=== PATIENT | female | born 1995 | race Caucasian/White ===

== ENCOUNTER → 2022-04-12 12:52 | Outpatient (BNVA) | payer MEDICAID, SELFPAY | PROVIDERS: PCP Family Medicine; Referring Provider Family Medicine; Visit Provider Internal Medicine | DX: E78.5 Hyperlipidemia, unspecified (principal); E03.9 Hypothyroidism, unspecified; R63.5 Abnormal weight gain; Z68.41 Body mass index [BMI] 40.0-44.9, adult; Z79.890 Hormone replacement therapy | CPT/HCPCS: 84439; 84443; 99204 ==

== ENCOUNTER 2022-04-16 09:45 | Outpatient (CLI) | payer MEDICAID, SELFPAY ==
[2022-04-16 12:35] LABS: Urine Creatinine 83 mg/dL (28-217)
[2022-04-16 13:13] LABS: Total Volume Urine 1800 ml
[2022-04-23 07:00] LABS: Free Cortisol Urine 34.2 mcg/24 h (4.0-50.0); Total Urine 1800 mL; Urine Creatinine 1.52 g/24 h (0.50-2.15)
== END 2022-04-16 09:46 | disposition home or self-care (01) ==
LOC: LAB 09:45
PROVIDERS: PCP Family Medicine; Visit Provider Internal Medicine
DX: E03.9 Hypothyroidism, unspecified (principal); E78.5 Hyperlipidemia, unspecified
CPT/HCPCS: 82530; 82570

== ENCOUNTER → 2022-05-16 09:38 | Outpatient (BNVA) | payer MEDICAID, SELFPAY | PROVIDERS: PCP Family Medicine; Visit Provider Internal Medicine | DX: E03.9 Hypothyroidism, unspecified (principal) | CPT/HCPCS: 36415; 84439; 84443; 84480; 86376; 86800 ==

== ENCOUNTER → 2022-05-16 09:38 | Outpatient (BNVA) | payer MEDICAID, SELFPAY | PROVIDERS: PCP Family Medicine; Visit Provider Internal Medicine | DX: E03.9 Hypothyroidism, unspecified (principal); R13.10 Dysphagia, unspecified; R63.5 Abnormal weight gain; Z79.890 Hormone replacement therapy; Z68.41 Body mass index [BMI] 40.0-44.9, adult | CPT/HCPCS: 99214 ==

== ENCOUNTER 2022-06-13 11:12 | Emergency (ER) | payer MEDICAID, SELFPAY ==
[2022-06-13 11:54] VITALS: BP 127/79; PULSE 94; RESP 16; TEMP 37; O2SAT 97; BMI 38.7
[2022-06-13 12:06] LABS: Basophils % 0.2 %; Eosinophils % 0.8 %; Hematocrit 34.2 % (37.0-47.0); Hemoglobin 10.9 g/dL (11.5-15.3); Lymphocytes % 40.8 %; Mean Corpuscular HGB Conc 31.9 g/dL (30.0-36.0); Mean Corpuscular Hemoglobin 28.6 pg (28.0-34.0); Mean Corpuscular Volume 89.8 fl (81-99); Monocytes # 0.3 10^3/uL (0.2-0.9); Monocytes % 6.2 %; Neutrophils # 2.56 10^3/uL (1.8-7.7); Neutrophils % 51.6 %; Nucleated Red Blood Cells % 0 %; Platelet Count 239 10^3/cmm (130-400); Red Blood Count 3.81 10^6/uL (4.1-5.3); Red Cell Distribution Width 11.8 % (12.1-15.1)
[2022-06-13 12:19] LABS: HCG, Serum Qual Negative (Negative)
[2022-06-13 12:22] LABS: Alanine Aminotransferase 138 U/L (0-33); Albumin Level 4.2 g/dL (3.5-5.2); Alkaline Phosphatase 76 U/L (35-105); Anion Gap 14.1 (5-19); Aspartate Amino Transferase 67 U/L (0-32); Blood Urea Nitrogen 12 mg/dL (6-20); Calcium 9.6 mg/dL (8.5-10.5); Carbon Dioxide 25 mmol/L (22-29); Chloride 103 mmol/L (98-107); Glomerular Filtration Rate 146.9 mL/min (90-130); Glucose 117 mg/dL (65-115); Lipase 38 U/L (13-60); Osmolality Calculated 287 mOsm/kg (285-295); Potassium 4.1 mmol/L (3.5-5.1); Sodium 138 mmol/L (136-145); Total Bilirubin 0.5 mg/dL (0.15-1.2); Total Protein 7.2 g/dL (6.6-8.7)
[2022-06-13 14:06] VITALS: BP 171/90; PULSE 78; RESP 17; O2SAT 98
--- NOTE | 2022-06-13 14:07 | CTR_ITS ---
PROCEDURE INFORMATION: Exam: CT Abdomen And Pelvis Without Contrast Exam date and time: 06/13/2022 2:52 PM Age: 26 years old Clinical indication: Abdominal pain; Localized; Patient HX: Central lower abd pain radiating to the left x 2 days; Additional info: Progressive rlq pain TECHNIQUE: Imaging protocol: Computed tomography of the abdomen and pelvis without contrast. Axial, coronal and sagittal reformatted images were created and reviewed. Radiation optimization: All CT scans at this facility use at least one of these dose optimization techniques: automated exposure control; mA and/or kV adjustment per patient size (includes targeted exams where dose is matched to clinical indication); or iterative reconstruction. REPORTING DATA: Count of CT and Cardiac NM exams in prior 12 months: This patient has received 0 known CTs and 0 known cardiac nuclear medicine studies in the 12 months prior to the current study. COMPARISON: No relevant prior studies available. RADIATION DOSE METRICS: Total DLP (mGy-cm): 1114.53 FINDINGS: Liver: Mild hepatomegaly. Diffuse hepatic steatosis. Gallbladder and bile ducts: Status post cholecystectomy. No biliary ductal dilatation. Pancreas: Unremarkable. Spleen: Unremarkable. Adrenal glands: Normal. No mass. Kidneys and ureters: Nonobstructing right renal calculus. No hydronephrosis. Stomach and bowel: No bowel wall thickening. No obstruction. No pneumatosis. Appendix: Normal. Intraperitoneal space: No free fluid. No organized fluid collection. No free air. Vasculature: Unremarkable. No aneurysm. Lymph nodes: No pathologically enlarged lymph nodes. Urinary bladder: Unremarkable as visualized. Reproductive: 3.9 x 3.2 cm right adnexal cystic lesion. Bones/joints: No acute osseous abnormality. Soft tissues: Small, fat containing infraumbilical hernia. CT/CT abdomen pelvis wo con [id number] IMPRESSION: 1. 3.9 x 3.2 cm right adnexal cystic lesion. If clinically indicated, pelvic ultrasound may be obtained for further evaluation. 2. Additional findings, as above.
--- NOTE | 2022-06-13 14:07 | W.ED.ABDPA2 ---
HPI - Abdominal Pain General: Chief Complaint: Abdominal Pain Stated Complaint: abd pains Time Seen by Provider: 06/13/22 13:34 Source: patient Mode of arrival: ambulatory Limitations: no limitations History of Present Illness: This lady comes to our emergency department because of concerns about abdominal pain. She states the abdominal pain began yesterday. She is notes that it seems to be more in the middle of her abdomen yesterday but is seem to have migrated to her right lower quadrant which it has remained since late last night. She states the pain is just present its not changed by eating or drinking although she did vomit this morning. She states this not changed by urinating or having a bowel movement both of which she is experienced today. She denies any blood in her urine or blood in her stools or black tarry stools. She has not had any recent travel, recent antibiotic use. She had a prior cholecystectomy as well as prior . She states that she had heavy period approximately 2 weeks ago and was seen in the emergency department in another facility and at that time evaluated given a prescription for a hormone which she thinks is Provera which she is still taking and discharged to outpatient gynecology follow-up. She denies any history of frequent urinary tract infections, pelvic infections or STDs, kidney stones etc. She is unaware of any fevers. MD elicited complaint: abdominal pain Migration to: RLQ Associated Symptoms: Reports vomiting; Denies chills, coffee ground emesis, dysuria, fever(s), hematochezia, hematemesis and melena Related Data: Patient : No Review of Systems Const: Denies: fever(s) or chills ENMT: Denies: throat pain, odynophagia, nasal discharge or nasal congestion Card: Denies: chest pain or palpitations Resp: Denies: dyspnea, productive cough or non-productive cough GI: Reports: abdominal pain and vomiting; Denies: hematemesis, coffee ground emesis, hematochezia or melena : Denies: flank pain, difficulty voiding, dysuria, urinary frequency, vaginal bleeding or vaginal discharge Musc: Denies: neck pain, extremity pain or extremity swelling Skin/Breast: Denies: rash Neuro: Denies: headache(s), numbness in extremities or weakness in extremities PFSH ED PFSH: Medical History Hypothyroidism Social History Smoking and tobacco status: former smoker Physical Exam Narrative: EXAM NARRATIVE: Patient appears to be in no acute distress and lying comfortably. She is able to answer questions in a goal-directed and fluent fashion. Const: COMMON NORMALS: no acute distress, patient oriented x3 and alert GENERAL APPEARANCE: cooperative NUTRITIONAL APPEARANCE: overweight ORIENTATION/CONSCIOUSNESS: Yes awake HENMT: COMMON NORMALS: normocephalic, Normal nasal mucous membranes and turbinates present and moist oral mucous membranes HEAD & SCALP: normocephalic NOSE: Normal nasal mucous membranes and turbinates present Eye: COMMON NORMALS: Equal, round and reactive pupils present, EOMs intact bilaterally and conjunctivae normal CONJUNCTIVA: Yes conjunctivae normal PUPIL: Yes Equal, round and reactive pupils present Neck/C-Spine: COMMON NORMALS: full ROM, no lymphadenopathy, supple and no JVD Chest: COMMONS NORMALS: normal inspection of the chest Resp: COMMON NORMALS: normal respiratory effort, No retractions and clear to auscultation bilaterally EFFORT & INSPECTION: Yes able to speak in complete sentences AUSCULTATION: clear to auscultation bilaterally Cardio: COMMON NORMALS: no JVD, regular rate, regular rhythm, No murmurs present (Cardio) and Peripheral pulses 2+ throughout RATE: regular rate RHYTHM: regular rhythm PERIPHERAL PULSES: Peripheral pulses 2+ throughout GI: COMMON NORMALS: Normal to inspection, nondistended, normoactive bowel sounds present, Soft to palpation and no masses PALPATION: Yes Soft to palpation and Yes Tenderness to palpation present (GI) (Tender to palpation, positive psoas sign with hip rotation.) Details: RLQ : COMMON NORMALS: Yes no CVA tenderness BLADDER/KIDNEY EXAM: Yes no CVA tenderness Back/Pelvis: COMMON NORMALS: no CVA tenderness, thoracic and lumbar spine normal to inspection, no thoracic nor lumbar tenderness, thoraco-lumbar ROM normal and straight leg raise negative bilaterally Extremity: COMMON NORMALS: normal to inspection, full ROM, capillary refill normal, no calf tenderness and no pedal edema Neuro: COMMON NORMALS: patient oriented x3, moves all extremities, no focal motor deficits and no sensory deficits noted SENSORIUM/ORIENTATION: Yes alert CRANIAL NERVES: Yes CN normal except as noted Psych: COMMON NORMALS: mental status grossly normal Skin: COMMON NORMALS: no rashes or lesions noted, no wounds and turgor normal GENERAL SKIN EXAM: no rashes or lesions noted and turgor normal Course Reevaluation(s): Reevaluation #1: Imaging reveals right adnexal cyst. We will proceed with ultrasound to better characterize the structure. No evidence of other concerning findings at this point. Time: 15:41 Reevaluation #2: Patient remains clinically stable with normal vital signs and controlled symptoms. I discussed current findings, expected course, follow-up and return precautions in detail with her. She voiced understanding. She is stable at this time to be discharged without any evidence of an ongoing emergency medical condition. Time: 17:55 Vital Signs: Vital signs: Vital Signs Temperature 98.6 F 06/13/22 11:54 Pulse Rate 70 06/13/22 17:50 Respiratory Rate 16 06/13/22 17:50 Blood Pressure 122/52 06/13/22 17:50 Pulse Oximetry 99 06/13/22 17:50 Oxygen Delivery Me thod Room Air 06/13/22 17:50 MDM - Abdominal Pain Medical Decision Making This patient presented to our emergency department because of abdominal pain that had migrated to predominantly the right lower quadrant over the prior 24 hours. Her clinical examination revealed some mild right lower quadrant tenderness without any peritoneal signs or events of a surgical abdomen however work-up ensued to ensure that there was no evidence of a occult appendicitis, X other pathology. Subsequently imaging and laboratories were obtained. No evidence of ectopic , urinary tract infection, ovarian torsion or bowel obstruction etc. however she did have a evidence of a stable right ovarian cyst without any evidence of significant free fluid or other concerns. Ancillary studies were reassuring as well. She was clinically stable. Consistent with a right ovarian cyst without evidence of rupture or ongoing bleeding or other emergency medical condition. She is already has a gynecology follow-up which is appropriate. She is stable at this time to be discharged with good return precautions. Medical Records I reviewed the patient's medical records. Lab Data I reviewed the patient's lab results. 06/13/22 11:46 06/13/22 11:46 Labs/Radiology: Radiology Impressions Abdomen/Pelvis CT 06/13/22 14:07 IMPRESSION: 1. 3.9 x 3.2 cm right adnexal cystic lesion. If clinically indicated, pelvic ultrasound may be obtained for further evaluation. 2. Additional findings, as above. Transvaginal US 06/13/22 15:40 IMPRESSION: Normal ovarian arterial and venous vascular flow. No evidence ovarian torsion. IMPRESSION: 3.9 x 2.3 x 4.3 cm complex right paraovarian cystic lesion with internal septations, suggestive of a hemorrhagic cyst. Laboratory Results WBC 5.0 10^3/uL (4.0-10.0) 06/13/22 11:46 RBC 3.81 10^6/uL (4.1-5.3) L 06/13/22 11:46 Hgb 10.9 g/dL (11.5-15.3) L 06/13/22 11:46 Hct 34.2 % (37.0-47.0) L 06/13/22 11:46 MCV 89.8 fl (81-99) 06/13/22 11:46 MCH 28.6 pg (28.0-34.0) 06/13/22 11:46 MCHC 31.9 g/dL (30.0-36.0) 06/13/22 11:46 RDW 11.8 % (12.1-15.1) L 06/13/22 11:46 Plt Count 239 10^3/cmm (130-400) 06/13/22 11:46 MPV 11.0 fL (7.4-10.4) H 06/13/22 11:46 Neut % (Auto) 51.6 % 06/13/22 11:46 Lymph % (Auto) 40.8 % 06/13/22 11:46 [place] % (Auto) 6.2 % 06/13/22 11:46 Eos % (Auto) 0.8 % 06/13/22 11:46 Baso % (Auto) 0.2 % 06/13/22 11:46 Neut # (Auto) 2.56 10^3/uL (1.8-7.7) 06/13/22 11:46 Lymph # (Auto) 2.0 10^3/uL (0.8-4.8) 06/13/22 11:46 [place] # (Auto) 0.3 10^3/uL (0.2-0.9) 06/13/22 11:46 Eos # (Auto) 0.0 10^3/uL (0.0-0.8) 06/13/22 11:46 Baso # (Auto) 0.0 10^3/uL (0.0-0.1) 06/13/22 11:46 Nucleated RBC % (auto) 0 % 06/13/22 11:46 Nucleated RBCs # 0.0 /100WBC 06/13/22 11:46 Sodium 138 mmol/L (136-145) 06/13/22 11:46 Potassium 4.1 mmol/L (3.5-5.1) 06/13/22 11:46 Chloride 103 mmol/L (98-107) 06/13/22 11:46 Carbon Dioxide 25 mmol/L (22-29) 06/13/22 11:46 Anion Gap 14.1 (5-19) 06/13/22 11:46 BUN 12 mg/dL (6-20) 06/13/22 11:46 Creatinine 0.5 mg/dL (0.5-0.9) 06/13/22 11:46 GFR Calculation 146.9 mL/min (90-130) H 06/13/22 11:46 Glucose 117 mg/dL (65-115) H 06/13/22 11:46 Calculated Osmolality 287 mOsm/kg (285-295) 06/13/22 11:46 Calcium 9.6 mg/dL (8.5-10.5) 06/13/22 11:46 Total Bilirubin 0.5 mg/dL (0.15-1.2) 06/13/22 11:46 AST 67 U/L (0-32) H 06/13/22 11:46 ALT 138 U/L (0-33) H 06/13/22 11:46 Alkaline Phosphatase 76 U/L (35-105) 06/13/22 11:46 Total Protein 7.2 g/dL (6.6-8.7) 06/13/22 11:46 Albumin 4.2 g/dL (3.5-5.2) 06/13/22 11:46 Globulin 3.0 g/dL (1.3-4.6) 06/13/22 11:46 Lipase 38 U/L (13-60) 06/13/22 11:46 HCG, Qual Negative (Negative) 06/13/22 11:46 Urine Color Yellow (Yellow) 06/13/22 13:51 Urine Appearance Hazy (CLEAR) A 06/13/22 13:51 Urine pH 6 (5-7) 06/13/22 13:51 Ur Specific [place] 1.025 (1.005-1.030) 06/13/22 13:51 Urine Protein Neg (Negative) 06/13/22 13:51 Urine Glucose (UA) Norm (Normal) 06/13/22 13:51 Urine Ketones Negative (Negative) 06/13/22 13:51 Urine Blood 2+ (Negative) H 06/13/22 13:51 Urine Nitrate Negative (Negative) 06/13/22 13:51 Urine Bilirubin Neg (Negative) 06/13/22 13:51 Urine Urobilinogen 1 mg/dL (Negative) H 06/13/22 13:51 Ur Leukocyte Esterase Negative (Negative) 06/13/22 13:51 Urine RBC None /hpf (0-2) 06/13/22 13:51 Urine WBC Rare /hpf (0-5) 06/13/22 13:51 Ur Squamous Epith Cells 15-25 /hpf (0-5) H 06/13/22 13:51 Amorphous Sediment 1+ /hpf 06/13/22 13:51 Urine Bacteria Trace /hpf (NONE) 06/13/22 13:51 Discharge Plan Discharge Patient Disposition: Home Clinical Impression: Cyst of right ovary Condition: Stable Prescriptions: No Action ferrous sulfate [FeroSul] 325 mg (65 mg iron) tablet 325 mg PO DAILY levetiracetam [Keppra] 500 mg tablet 500 mg PO BID levothyroxine 150 mcg tablet 150 mcg PO DAILY Qty: 90 0RF Discharge Orders: Discharge ED (Routine); Ordered 06/13/22 Ordered By: Amrit Souza Referrals: Ruddy Maldonado MD [Primary Care Provider] - Discharge Diet: Usual diet Discharge Activity: Increase activity as tolerated Patient Instructions: Opioid Safety, Pain Management Activity Restrictions/Additional Instructions: As we discussed during your evaluation in the emergency department there was no evidence that you had a surgical condition such as appendicitis, etc. at this time. We did discover that you have a cyst on your right ovary which is small and should resolve on its own. We have given you a medication in the emergency department should help any the pain and cramping associated with this cyst. You may use ibuprofen or Aleve in the [id number] recommended doses for the next 2 to 3 days to help with your ongoing symptoms. You have a scheduled follow-up appoint with gynecology in the next coming week which is an appropriate timeframe and you should follow-up as scheduled. If you develop increasing pain, lightheadedness, or any concerning symptoms return to this or the nearest emergency department. Coding Level of Care Code ED Signal Helper for Suri Schilling
[2022-06-13 14:21] LABS: Add Urine Microscopic? YES; Bilirubin Urine Neg (Negative); Blood Urine 2+ (Negative); Glucose Urine UA Norm (Normal); Ketones Urine Negative (Negative); Leukocyte Esterase Urine Negative (Negative); Nitrate Urine Negative (Negative); Protein Urine Neg (Negative); Specific Gravity, Urine 1.025 (1.005-1.030); Urine Appearance Hazy (CLEAR); Urine Color Yellow (Yellow); Urobilinogen Urine 1 mg/dL (Negative); pH Urine 6 (5-7)
[2022-06-13 14:22] LABS: Bacteria Urine TRACE /hpf; Squamous Epithelial Cell Urine 15-25 /hpf (0-5); WBC Urine RARE /hpf (0-5)
[2022-06-13 14:23] LABS: Add Urine Culture? No; Amorphous Sediment Urine 1+ /hpf
[2022-06-13] MEDS: morphine 4 mg/mL SDV 1 mL IVP (14:23)
--- NOTE | 2022-06-13 15:40 | USR_ITS ---
PROCEDURE INFORMATION: Exam: US Duplex Artery and Vein of the Abdominal and/or Reproductive Organs. Complete Ovaries Exam date and time: 06/13/2022 4:20 PM Age: 26 years old Clinical indication: Pelvic pain; Prior surgery; Surgery type: Patient has history of c section and tubal ligation; Additional info: Right adnexal cyst-neg preg TECHNIQUE: Imaging protocol: Real-time duplex ultrasound scan of the arterial and venous flow with color Doppler flow and spectral waveform analysis with image documentation. Complete duplex exam focused on the ovaries. Duplex exam was performed to evaluate for torsion and other vascular conditions. COMPARISON: CT abdomen pelvis con [id number] 06/13/2022 2:52 PM FINDINGS: Right ovary/adnexa: Normal duplex of the ovary. Normal Doppler waveforms and color flow. Arterial and venous flow are normal. No evidence of ovarian torsion. Left ovary/adnexa: Normal duplex of the ovary. Normal Doppler waveforms and color flow. Arterial and venous flow are normal. No evidence of ovarian torsion. PROCEDURE INFORMATION: Exam: US Pelvis, Transvaginal Exam date and time: 06/13/2022 4:20 PM Age: 26 years old Clinical indication: Pelvic pain; Prior surgery; Surgery type: Patient has history of c section and tubal ligation; Additional info: Right adnexal cyst-neg preg TECHNIQUE: Imaging protocol: Real-time transvaginal pelvic ultrasound with image documentation. Transvaginal imaging was used for better evaluation of the endometrium, adnexa, and/or cervix. COMPARISON: CT abdomen pelvis con [id number] 06/13/2022 2:52 PM FINDINGS: Uterus: 12.1 x 4.6 x 4.9 cm. Normal endometrial thickness, measuring approximally 13 mm. Right ovary/adnexa: 3.5 x 2.5 x 3 cm. 3.9 x 2.3 x 4.3 cm complex paraovarian cystic lesion with internal septations, suggestive of a hemorrhagic cyst. No solid mass. Normal ovarian blood flow. Left ovary/adnexa: 4.1 x 2.8 x 2.8 cm. No mass. Normal ovarian blood flow. Intraperitoneal space: Trace free pelvic fluid, likely physiologic. US/US transvaginal [id number] IMPRESSION: Normal ovarian arterial and venous vascular flow. No evidence ovarian torsion. IMPRESSION: 3.9 x 2.3 x 4.3 cm complex right paraovarian cystic lesion with internal septations, suggestive of a hemorrhagic cyst.
[2022-06-13 16:56] VITALS: BP 117/77; PULSE 81; RESP 18; O2SAT 97
[2022-06-13] MEDS: ketorolac 30 mg/mL INJ 15 MG IVP (17:46)
[2022-06-13 17:50] VITALS: BP 122/52; PULSE 70; RESP 16; O2SAT 99
[2022-06-13 18:05] VITALS: BP 122/52; PULSE 70; RESP 16; O2SAT 99
== END 2022-06-13 18:07 | disposition home or self-care (01) ==
PROVIDERS: Physician Assistant; Emergency Provider Emergency Medicine; PCP Family Medicine
DX: N83.201 Unspecified ovarian cyst, right side (principal); Z87.891 Personal history of nicotine dependence
CPT/HCPCS: 36415; 74176; 76830; 80053; 81001; 83690; 84703; 85025; 96374; 96375; 99285; J1885; J2270

== ENCOUNTER 2022-08-09 15:26 | Emergency (ER) | payer MEDICAID, SELFPAY ==
[2022-08-09 15:40] VITALS: PULSE 71; RESP 16; TEMP 36.9; O2SAT 97; BMI 39.9
--- NOTE | 2022-08-09 16:07 | W.ED.NEUROSD ---
HPI - Neuro Symptoms/Deficit General: Chief Complaint: Neuro Symptoms/Deficit Stated Complaint: Numbness in hands Time Seen by Provider: 08/09/22 15:56 History of Present Illness: Patient presents to the ER with complaints of numbness and tingling in her hands and lower arms over the last 4 days. Patient says this started about 4 days ago and has essentially made the whole area from the elbow all the way down to the fingertips on all sides feel numb tingly and having creepy crawly sensations. Patient is never had this before it is worse when patient is driving patient has never had any elbow trauma or arthritis noted. Patient has no other complaints at this time Review of Systems General: Reports: 10 or more systems reviewed and unremarkable except in HPI and below PFSH ED PFSH: Medical History Hypothyroidism Social History Smoking and tobacco status: former smoker Physical Exam Const: COMMON NORMALS: no acute distress, average body habitus, patient oriented x3, no limitations, healthy appearing, alert and well nourished HENMT: COMMON NORMALS: normocephalic, atraumatic, hearing grossly normal bilaterally, external ears normal, Normal external nose present and moist oral mucous membranes HEAD & SCALP: normocephalic and atraumatic NOSE: Normal external nose present EXTERNAL EAR: Yes external ears normal Neck/C-Spine: COMMON NORMALS: full ROM, no lymphadenopathy, supple, no meningeal signs, no JVD and Thyroid normal THYROID: Thyroid normal Chest: COMMONS NORMALS: normal inspection of the chest and normal palpation of entire chest wall Resp: COMMON NORMALS: normal respiratory effort, No retractions, No use of accessory muscles and clear to auscultation bilaterally AUSCULTATION: clear to auscultation bilaterally Cardio: COMMON NORMALS: no JVD, regular rate, regular rhythm, S1 normal heart sound present, S2 normal heart sound present, No gallops present (Cardio), No clicks present (Cardio), No murmurs present (Cardio) and No rub (Cardio) RATE: regular rate RHYTHM: regular rhythm HEART SOUNDS: S1 normal heart sound present and S2 normal heart sound present GI: COMMON NORMALS: Normal to inspection, nondistended, normoactive bowel sounds present, Soft to palpation, non-tender, No hepatosplenomegaly present and no masses PALPATION: Yes Soft to palpation and Yes No hepatosplenomegaly present Extremity: COMMON NORMALS: normal to inspection, full ROM, capillary refill normal, no joint enlargement and no clubbing, cyanosis or edema Neuro: COMMON NORMALS: patient oriented x3 SENSORIUM/ORIENTATION: Yes alert MENINGEAL SIGNS: Yes no meningeal signs Course Vital Signs: Vital signs: Vital Signs Temperature 98.4 F 08/09/22 15:40 Pulse Rate 71 08/09/22 15:40 Respiratory Rate 16 08/09/22 15:40 Pulse Oximetry 97 08/09/22 15:40 Oxygen Delivery Me thod Room Air 08/09/22 15:40 MDM - Neuro Symptoms/Deficit Medical Decision Making Patient presents to the ER with complaints of bilateral arm numbness tingling and feels like they are going to sleep. From the elbow all the way to the fingertips front back and side to side. This has not progressed in 4 days but it has not went away. This is unlikely any CVA type neurological event this is more likely a paresthesia type event. Patient will be trialed on oral prednisone and will be referred back to her primary care doctor for further evaluation testing which may include referral to a neurologist and/or nerve conduction study or EMG. Differential Diagnosis Likely peripheral neuropathy; Unlikely carpal tunnel syndrome, convulsions, delirium, subarachnoid hemorrhage, cerebrovascular accident, multiple sclerosis or transient cerebral ischemia Medical Records I reviewed the patient's medical records. Lab Data I reviewed the patient's lab results. Discharge Plan Discharge Patient Disposition: Home Clinical Impression: Distal paresthesia Condition: Stable Prescriptions: New prednisone 50 mg tablet 50 mg PO DAILY Qty: 7 0RF No Action ferrous sulfate [FeroSul] 325 mg (65 mg iron) tablet 325 mg PO DAILY levetiracetam [Keppra] 500 mg tablet 500 mg PO BID levothyroxine 150 mcg tablet 150 mcg PO DAILY Qty: 90 0RF Discharge Orders: Discharge ED (Routine); Ordered 08/09/22 Ordered By: Kalyan Taylor Referrals: Ruddy Maldonado MD [Primary Care Provider] - 1 week Patient Instructions: Paresthesia (ED) Activity Restrictions/Additional Instructions: Take your medicine as directed. Please follow-up with your family practice doctor in 1 week. He may benefit from further evaluation and treatment such as neurology and/or nerve conduction study. Coding Level of Care Code ED Protection Manager for Suri Schilling
== END 2022-08-09 16:33 | disposition home or self-care (01) ==
PROVIDERS: Emergency Provider Emergency Medicine; PCP Family Medicine
DX: R20.2 Paresthesia of skin (principal); Z87.891 Personal history of nicotine dependence
CPT/HCPCS: 99283

== ENCOUNTER 2023-01-04 19:36 | Emergency (ER) | payer MEDICAID, SELFPAY ==
[2023-01-04 19:41] VITALS: BP 122/81; PULSE 87; RESP 16; TEMP 36.9; O2SAT 97; BMI 39.9
[2023-01-04 20:03] VITALS: BP 165/89; PULSE 82; O2SAT 97
[2023-01-04 20:25] LABS: Basophils % 0.2 %; Eosinophils % 0.2 %; Lymphocytes # 2.5 10^3/uL (0.8-4.8); Lymphocytes % 27.2 %; Mean Corpuscular Hemoglobin 24.2 pg (27-33); Mean Corpuscular Volume 77.8 fl (85-98); Mean Platelet Volume 10.8 fL (7.4-10.4); Monocytes # 0.6 10^3/uL (0.2-0.9); Monocytes % 6.6 %; Neutrophils # 5.93 10^3/uL (1.8-7.7); Neutrophils % 65.5 %; Nucleated Red Blood Cells % 0 %; Platelet Count 268 10^3/cmm (157-399); Red Blood Count 5.01 10^6/uL (3.85-5.65); Red Cell Distribution Width 15.4 % (12.1-15.1); White Blood Count 9.06 10^3/uL (3.29-11.43)
[2023-01-04] MEDS: ondansetron 2 mg/ML SDV 2 mL 4 MG IVP (20:25)
[2023-01-04] MEDS: sodium chloride 0.9% 1,000 ML 999 ML IV (20:25)
[2023-01-04 20:34] LABS: Urine Appearance Hazy (CLEAR); Urine Color Yellow (Yellow); pH Urine 6 (5-7)
[2023-01-04 20:35] LABS: Add Urine Culture? No; Add Urine Microscopic? YES; Amorphous Sediment Urine 1+ /hpf; Bacteria Urine TRACE /hpf; Bilirubin Urine Neg (Negative); Blood Urine Neg (Negative); Glucose Urine UA Norm (Normal); Ketones Urine 1+ (Negative); Leukocyte Esterase Urine Trace (Negative); Nitrate Urine Negative (Negative); Protein Urine 1+ (Negative); RBC Urine RARE /hpf (0-2); Sperm Urine 1+ /hpf; Squamous Epithelial Cell Urine 15-25 /hpf (0-5); Urobilinogen Urine Neg (Negative); WBC Urine 0-4 /hpf (0-5)
[2023-01-04 20:36] LABS: HCG, Serum Qual Negative (Negative)
[2023-01-04 20:45] VITALS: BP 141/70; PULSE 85; O2SAT 95
[2023-01-04 20:45] LABS: Alanine Aminotransferase 74 U/L (0-33); Albumin Level 4.8 g/dL (3.5-5.2); Alkaline Phosphatase 98 U/L (35-105); Anion Gap 14.3 (5-19); Aspartate Amino Transferase 25 U/L (0-32); Blood Urea Nitrogen 12 mg/dL (6-20); C Reactive Protein 5.1 mg/L (0.0-4.9); Calcium 9.6 mg/dL (8.5-10.5); Carbon Dioxide 23 mmol/L (22-29); Chloride 105 mmol/L (98-107); Globulin 3.4 g/dL (1.3-4.6); Glomerular Filtration Rate 118.2 mL/min (90-130); Glucose 95 mg/dL (65-115); Lipase 28 U/L (13-60); Osmolality Calculated 286 mOsm/kg (285-295); Potassium 4.3 mmol/L (3.5-5.1); Sodium 138 mmol/L (136-145); Total Bilirubin 0.5 mg/dL (0.15-1.2); Total Protein 8.2 g/dL (6.6-8.7)
[2023-01-04] MEDS: lidocaine 2% viscous 15 ML, aluminum-mag hydrox-simethicon 30 ML, sucralfate oral liq 1 GM PO (20:51)
[2023-01-04] MEDS: ketorolac 30 mg/mL INJ IVP (20:56)
[2023-01-04 20:58] VITALS: BP 139/74; PULSE 76; O2SAT 98
--- NOTE | 2023-01-04 21:16 | ED_ITS ---
HPI - Abdominal Pain General: Chief Complaint: Abdominal Pain Stated Complaint: ABD Time Seen by Provider: 01/04/23 19:58 History of Present Illness: 27-year-old female presenting with epigastric and left upper quadrant pain, several episodes of vomiting, starting this afternoon. She denies fever. No diarrhea. She took an antiacid at home without any improvement. She states she has been belching a lot. She has a history of cholecystectomy. She has had her tubes tied, but notes that she has not had a period in 3 months or so. Associated Symptoms: Reports nausea and vomiting; Denies chills, constipation, diarrhea, fever(s) and hematochezia Review of Systems Const: Denies: fever(s) or chills Eyes: Denies: change in vision ENMT: Denies: throat pain Card: Denies: chest pain or palpitations Resp: Denies: dyspnea or productive cough GI: Reports: abdominal pain, nausea and vomiting; Denies: diarrhea, constipation or hematochezia : Denies: flank pain Neuro: Denies: headache(s) PFSH ED PFSH: Medical History Hypothyroidism Social History Smoking and tobacco/nicotine status: former use of tobacco/nicotine Physical Exam Const: COMMON NORMALS: no acute distress GENERAL APPEARANCE: cooperative; not ill appearing and not frail appearing HENMT: COMMON NORMALS: normocephalic, atraumatic and Normal external nose present HEAD & SCALP: normocephalic and atraumatic FACE & SINUS: normal facial exam and face symmetric NOSE: Normal external nose present Eye: COMMON NORMALS: Equal, round and reactive pupils present and EOMs intact bilaterally PUPIL: Yes Equal, round and reactive pupils present Neck/C-Spine: GENERAL: Yes trachea midline Chest: CHEST: Yes Symmetrical chest wall rise Resp: COMMON NORMALS: normal respiratory effort, No retractions, No use of accessory muscles and clear to auscultation bilaterally AUSCULTATION: clear to auscultation bilaterally Cardio: COMMON NORMALS: regular rate and regular rhythm RATE: regular rate RHYTHM: regular rhythm GI: COMMON NORMALS: Normal to inspection, nondistended, normoactive bowel sounds present PALPATION: Yes Tenderness to palpation present (GI) Details: LUQ and Yes Guarding due to palpation present (GI) Extremity: COMMON NORMALS: no pedal edema Neuro: JERE COMA SCALE: document GCS findings [place] coma scale eye opening: Spontaneous [place] coma scale verbal response: Orientated [place] coma scale motor response: Obey commands [place] coma scale total score: 15 SENSORY EXAM: Yes extremities (intact) Psych: COMMON NORMALS: speech normal SPEECH: Yes normal speech Skin: COMMON NORMALS: no rashes or lesions noted GENERAL SKIN EXAM: no rashes or lesions noted Course Vital Signs: Vital signs: Vital Signs Temperature 98.5 F 01/04/23 19:41 Pulse Rate 74 01/04/23 21:50 Respiratory Rate 18 01/04/23 21:50 Blood Pressure 135/67 01/04/23 21:50 Pulse Oximetry 96 01/04/23 21:50 Oxygen Delivery Me thod Room Air 01/04/23 20:58 MDM - Abdominal Pain Medical Decision Making Patient's symptoms are improved after a liter of fluid, GI cocktail, Toradol and Zofran. CBC is normal. BMP is normal. CRP is only 5. Lipase is normal at 28. Liver enzymes are not remarkable. Urinalysis is mildly contaminated, but shows no signs of UTI. With improvement in her symptoms, she will be allowed home. Return for worsening symptoms. Outpatient follow-up. Lab Data 01/04/23 20:17 01/04/23 20:17 Labs/Radiology: Laboratory Results WBC 9.06 10^3/uL (3.29-11.43) 01/04/23 20:17 RBC 5.01 10^6/uL (3.85-5.65) 01/04/23 20:17 Hgb 12.10 g/dL (11.27-16.99) 01/04/23 20:17 Hct 39.0 % (36-47) 01/04/23 20:17 MCV 77.8 fl (85-98) L 01/04/23 20:17 MCH 24.2 pg (27-33) L 01/04/23 20:17 MCHC 31.0 g/dL (30-55) 01/04/23 20:17 RDW 15.4 % (12.1-15.1) H 01/04/23 20:17 Plt Count 268 10^3/cmm (157-399) 01/04/23 20:17 MPV 10.8 fL (7.4-10.4) H 01/04/23 20:17 Neut % (Auto) 65.5 % 01/04/23 20:17 Lymph % (Auto) 27.2 % 01/04/23 20:17 [place] % (Auto) 6.6 % 01/04/23 20:17 Eos % (Auto) 0.2 % 01/04/23 20:17 Baso % (Auto) 0.2 % 01/04/23 20:17 Neut # (Auto) 5.93 10^3/uL (1.8-7.7) 01/04/23 20:17 Lymph # (Auto) 2.5 10^3/uL (0.8-4.8) 01/04/23 20:17 [place] # (Auto) 0.6 10^3/uL (0.2-0.9) 01/04/23 20:17 Eos # (Auto) 0.0 10^3/uL (0.0-0.8) 01/04/23 20:17 Baso # (Auto) 0.0 10^3/uL (0.0-0.1) 01/04/23 20:17 Nucleated RBC % (auto) 0 % 01/04/23 20:17 Nucleated RBCs # 0.0 /100WBC 01/04/23 20:17 Sodium 138 mmol/L (136-145) 01/04/23 20:17 Potassium 4.3 mmol/L (3.5-5.1) 01/04/23 20:17 Chloride 105 mmol/L (98-107) 01/04/23 20:17 Carbon Dioxide 23 mmol/L (22-29) 01/04/23 20:17 Anion Gap 14.3 (5-19) 01/04/23 20:17 BUN 12 mg/dL (6-20) 01/04/23 20:17 Creatinine 0.6 mg/dL (0.5-0.9) 01/04/23 20:17 GFR Calculation 118.2 mL/min (90-130) 01/04/23 20:17 Glucose 95 mg/dL (65-115) 01/04/23 20:17 Calculated Osmolality 286 mOsm/kg (285-295) 01/04/23 20:17 Calcium 9.6 mg/dL (8.5-10.5) 01/04/23 20:17 Total Bilirubin 0.5 mg/dL (0.15-1.2) 01/04/23 20:17 AST 25 U/L (0-32) 01/04/23 20:17 ALT 74 U/L (0-33) H 01/04/23 20:17 Alkaline Phosphatase 98 U/L (35-105) 01/04/23 20:17 C-Reactive Protein 5.1 mg/L (0.0-4.9) H 01/04/23 20:17 Total Protein 8.2 g/dL (6.6-8.7) 01/04/23 20: Albumin 4.8 g/dL (3.5-5.2) 01/04/23 20: Globulin 3.4 g/dL (1.3-4.6) 01/04/23 20:17 Lipase 28 U/L (13-60) 01/04/23 20:17 HCG, Qual Negative (Negative) 01/04/23 20:17 Urine Color Yellow (Yellow) 01/04/23 20:11 Urine Appearance Hazy (CLEAR) A 01/04/23 20:11 Urine pH 6 (5-7) 01/04/23 20:11 Ur Specific [place] 1.020 (1.005-1.030) 01/04/23 20:11 Urine Protein 1+ (Negative) H 01/04/23 20:11 Urine Glucose (UA) Norm (Normal) 01/04/23 20:11 Urine Ketones 1+ (Negative) H 01/04/23 20:11 Urine Blood Neg (Negative) 01/04/23 20:11 Urine Nitrate Negative (Negative) 01/04/23 20:11 Urine Bilirubin Neg (Negative) 01/04/23 20:11 Urine Urobilinogen Neg mg/dL (Negative) 01/04/23 20:11 Ur Leukocyte Esterase Trace (Negative) H 01/04/23 20:11 Urine RBC Rare /hpf (0-2) 01/04/23 20:11 Urine WBC 0-4 /hpf (0-5) H 01/04/23 20:11 Ur Squamous Epith Cells 15-25 /hpf (0-5) H 01/04/23 20:11 Amorphous Sediment 1+ /hpf 01/04/23 20:11 Urine Bacteria Trace /hpf (NONE) 01/04/23 20:11 Urine Sperm 1+ /hpf 01/04/23 20:11 No radiology studies performed this visit Discharge Plan Discharge Patient Disposition: Home Clinical Impression: Gastritis Condition: Stable Prescriptions: New ondansetron 4 mg film 4 mg PO DAILY PRN (Reason: nausea and vomiting) Qty: 14 0RF Protonix 40 mg tablet,delayed release (DR/EC) 40 mg PO DAILY 28 Days Qty: 30 0RF No Action ferrous sulfate [FeroSul] 325 mg (65 mg iron) tablet 325 mg PO DAILY levetiracetam [Keppra] 500 mg tablet 500 mg PO BID levothyroxine 150 mcg tablet 150 mcg PO DAILY Qty: 90 0RF prednisone 50 mg tablet 50 mg PO DAILY Qty: 7 0RF Discharge Orders: Discharge ED (Routine); Ordered 01/04/23 Ordered By: Ralf Cordova Referrals: Ruddy Maldonado MD [Primary Care Provider] - 4-7 days Patient Instructions: Gastritis (ED), Opioid Safety, Pain Management Activity Restrictions/Additional Instructions: Monitor for fever. Return for vomiting liquids or medications despite treatment, worsening pain despite treatment, blood in stool, other concerning symptoms. He should be on a liquid diet for 24 hours, then increase food as tolerated. Take nausea medication scheduled for the first 24 hours, then as needed following. Follow-up with your doctor. Stand Alone Forms: Work/School Release Coding Level of Care Code ED Educational Fundraising Director for Suri Schilling
[2023-01-04 21:50] VITALS: BP 135/67; PULSE 74; RESP 18; O2SAT 96
== END 2023-01-04 21:51 | disposition home or self-care (01) ==
PROVIDERS: Emergency Provider Emergency Medicine; PCP Family Medicine
DX: K29.70 Gastritis, unspecified, without bleeding (principal); Z87.891 Personal history of nicotine dependence
CPT/HCPCS: 36415; 80053; 81001; 83690; 84703; 85025; 86140; 96361; 96374; 96375; 99284; J1885; J2405; J7030

== ENCOUNTER 2024-01-03 11:46 | Emergency (ER) | payer BC, SELFPAY ==
[2024-01-03 12:10] VITALS: BP 116/69; PULSE 83; RESP 17; TEMP 36.7; O2SAT 100; BMI 40.2
[2024-01-03 12:16] LABS: Basophils % 0.3 %; Eosinophils # 0.1 10^3/uL (0.0-0.8); Eosinophils % 1.7 %; Hematocrit 34.4 % (36-47); Lymphocytes # 3.1 10^3/uL (0.8-4.8); Lymphocytes % 42.7 %; Mean Corpuscular HGB Conc 27.9 g/dL (30-55); Mean Corpuscular Hemoglobin 19.6 pg (27-33); Mean Corpuscular Volume 70.1 fl (85-98); Mean Platelet Volume 10.9 fL (7.4-10.4); Monocytes # 0.5 10^3/uL (0.2-0.9); Monocytes % 6.3 %; Neutrophils # 3.45 10^3/uL (1.8-7.7); Neutrophils % 48.3 %; Nucleated Red Blood Cells % 0 %; Platelet Count 310 10^3/cmm (157-399); Red Blood Count 4.91 10^6/uL (3.85-5.65); Red Cell Distribution Width 18.5 % (12.1-15.1); White Blood Count 7.14 10^3/uL (3.29-11.43)
--- NOTE | 2024-01-03 12:19 | ECG_ITS ---
[facility] Test Date: 2024-01-03 Pat Name: Briana Gonzalez Department: Room: Gender: Female Indian Trader: : 1995 Requested By: Arminda Interiano Order Number: [id number] Isela MD: Evelyn Carrasco M.D. Measurements Intervals [place] Rate: 77 P: 44 WV: 148 QRS: 40 QRSD: 96 T: 62 QT: 376 QTc: 428 Interpretive Statements SINUS RHYTHM WITH SINUS ARRHYTHMIA No previous ECG available for comparison Electronically Signed On 01-04-2024 15:59:46 TRAFFIC OPERATIONS ENGINEER by Evelyn Carrasco M.D. [email or web address]
[2024-01-03 12:24] LABS: HCG, Serum Qual Negative (Negative)
[2024-01-03 12:45] LABS: Alanine Aminotransferase 56 U/L (0-33); Albumin Level 4.2 g/dL (3.5-5.2); Alkaline Phosphatase 113 U/L (35-105); Anion Gap 12.2 (5-19); Aspartate Amino Transferase 36 U/L (0-32); Blood Urea Nitrogen 10 mg/dL (6-20); Carbon Dioxide 27 mmol/L (22-29); Chloride 104 mmol/L (98-107); Creatinine Clr Calc Pharmacy 180.9164; Globulin 3.4 g/dL (1.3-4.6); Glomerular Filtration Rate 117.4 mL/min (90-130); Glucose 104 mg/dL (65-115); Osmolality Calculated 287 mOsm/kg (285-295); Potassium 4.2 mmol/L (3.5-5.1); Sodium 139 mmol/L (136-145); Thyroid Stimulating Hormone 2.68 uIU/mL (0.27-4.20); Total Bilirubin 0.5 mg/dL (0.15-1.2); Total Protein 7.6 g/dL (6.6-8.7)
--- NOTE | 2024-01-03 13:35 | ED_ITS ---
HPI - General Adult 2 General: Chief complaint: Dizziness Stated complaint: keeps having blackouts Time Seen by Provider: 01/03/24 13:12 Source: patient and family Mode of arrival: wheelchair Limitations: no limitations History of Present Illness: Patient is a 28-year-old female with a PMH significant for obesity, hypothyroidism, iron deficiency anemia, nonalcoholic fatty liver, and seizures here for concerns of recurrent changes in level of consciousness. She was reportedly sent by her primary care provider to be admitted. She states over the past 1.5 weeks she has been seen in the [facility] as well as [place] but they would not admit her to the hospital so she came here to be admitted. She states her primary care provider is concerned about possible absence seizures but does also mention pseudoseizures and is also stated she thinks it might be my thyroid (per patient). Patient states she did have a history of seizures and was on Keppra for this medication. Also states at some point she has been on Dilantin. She states she was taken off of this (Keppra) approximately a year ago as she had not had a seizure in quite some time. Significant other states she had been doing well until approximately 1.5 weeks ago. She states her previous seizures included tonic-clonic activity. Significant other states lately she has been having episodes where her eyes rolls back in her head and she seemingly goes out of consciousness for a few minutes before coming to. PCP has witnessed these and states vitals remain stable during these episodes. She does have a postictal period of headache and some confusion. She reportedly is normal in between these episodes. Patient states during her 2 previous workups over the past 1.5 weeks she has had an MRI (records obtained and it was a CT scan-normal). She does not have any episodes of incontinence, tongue biting, apnea. Onset (ago): day(s) (8-10 days ago) Relieving factors: none Exacerbating factors: none Associated symptoms: Reports headache(s); Deny chest pain, dyspnea, malaise, nausea, rash, palpitations, syncope or vomiting Treatments prior to arrival: none Related Data Home Medications Medication Instructions Recorded Confirmed levothyroxine 175 mcg tablet 175 mcg PO QAM 01/03/24 01/03/24 Previous Rx's Medication Instructions Recorded nitrofurantoin 100 mg PO BID 7 days #14 caps 01/03/24 monohydrate/macrocrystals 100 mg capsule (Macrobid) phenytoin sodium extended 100 mg 100 mg PO TID #90 caps 01/03/24 capsule Allergies Allergy/AdvReac Type Severity Reaction Status Date / Time Iodinated Contrast Media Allergy Intermediate ALGY-Hives Verified 01/03/24 12:16 shellfish derived Allergy Unknown Unknown Verified 01/03/24 12:16 Review of Systems 2 Const: Denies: fever(s), chills, body aches, fatigue or malaise Eyes: Denies: change in vision, blurry vision, photophobia, floaters or seeing flashes ENMT: Denies: throat pain, odynophagia, ear or mastoid pain, nasal discharge, nasal congestion or sinus pain Card: Denies: chest pain, palpitations, irregular heart rhythm, lightheadedness, syncope or dyspnea on exertion Resp: Denies: dyspnea, productive cough or pain on inspiration GI: Denies: abdominal pain, nausea, vomiting, heartburn or diarrhea : Denies: dysuria Musc: Denies: neck pain, back pain or joint pain Skin/Breast: Denies: rash Neuro: Reports: headache(s); Denies: numbness in extremities, weakness in extremities, sensory changes, difficulty walking, frequent falls, dizziness or Slurred speech present PFSH ED 2 PFSH: Medical History Hypothyroidism Social History Smoking and tobacco/nicotine status: former use of tobacco/nicotine Physical Exam 2 Const: COMMON NORMALS: no acute distress, patient oriented x3, alert and well nourished GENERAL APPEARANCE: cooperative NUTRITIONAL APPEARANCE: obese ORIENTATION/CONSCIOUSNESS: Yes awake, Yes oriented to person, Yes oriented to place and Yes oriented to time HENMT: COMMON NORMALS: normocephalic and atraumatic HEAD & SCALP: normal to inspection, normocephalic and atraumatic FACE & SINUS: normal facial exam and face symmetric Eye: COMMON NORMALS: Equal, round and reactive pupils present and EOMs intact bilaterally GENERAL EYE: appearance normal, both eyes and all related structures and normal light reflex PUPIL: Yes Equal, round and reactive pupils present DIRECT OPHTHALMOSCOPY: Yes normal light reflex Neck/C-Spine: COMMON NORMALS: full ROM, no lymphadenopathy, supple and no meningeal signs Chest: COMMONS NORMALS: normal inspection of the chest Resp: COMMON NORMALS: normal respiratory effort and clear to auscultation bilaterally AUSCULTATION: clear to auscultation bilaterally Cardio: COMMON NORMALS: regular rate and regular rhythm RATE: regular rate RHYTHM: regular rhythm GI: COMMON NORMALS: Normal to inspection, nondistended, normoactive bowel sounds present, Soft to palpation, non-tender, No hepatosplenomegaly present and no masses PALPATION: Yes Soft to palpation and Yes No hepatosplenomegaly present : COMMON NORMALS: Yes no CVA tenderness BLADDER/KIDNEY EXAM: Yes no CVA tenderness Back/Pelvis: COMMON NORMALS: no CVA tenderness and thoracic and lumbar spine normal to inspection Extremity: COMMON NORMALS: normal to inspection GENERAL: Yes normal exam except as noted Neuro: CORIN COMA SCALE: document GCS findings [place] coma scale eye opening: Spontaneous [place] coma scale verbal response: Orientated [place] coma scale motor response: Obey commands [place] coma scale total score: 15 COMMON NORMALS: patient oriented x3, CN's II-XII intact bilaterally, moves all extremities, no focal motor deficits and no sensory deficits noted S ENSORIUM/ORIENTATION: Yes alert, Yes oriented to person, Yes oriented to place and Yes oriented to time MENINGEAL SIGNS: Yes no meningeal signs Skin: COMMON NORMALS: no rashes or lesions noted GENERAL SKIN EXAM: no rashes or lesions noted Course 2 Vital Signs: Vital signs: Vital Signs Temperature 98.1 F 01/03/24 12:10 Pulse Rate 58 L 01/03/24 15:08 Respiratory Rate 16 01/03/24 14:35 Blood Pressure 119/66 01/03/24 15:08 Pulse Oximetry 97 01/03/24 15:08 Oxygen Delivery Me thod Room Air 01/03/24 15:08 MDM - General Adult Medical Decision Making Patient has not had any episodes while here. Records from [facility] and [place] were obtained. These workups were essentially unremarkable. At [facility] she did have an elevated TSH. This is normal today. Head CT was normal. She was ambulatory here without difficulty or assistance. Interestingly enough, both [facility] and [place] ED records to report multiple ED visits. One of the visits did have a positive UA culture for E. coli resulting a few days ago. She has not been started on antibiotics for this. I think DDx at this time includes functional seizures versus focal epilepsy. Will give loading dose of Dilantin prior to discharge. She will be started on Dilantin as well as antibiotics for UTI. Return to ED precautions given. Did discuss case with her primary care provider. Referral for neurology will be placed. Medical Records I reviewed the patient's medical records. Lab Data I reviewed the patient's lab results. 01/03/24 12:03 01/03/24 12:03 Radiology Impressions Chest X-Ray 01/03/24 13:51 Impression: Negative chest. Laboratory Results WBC 7.14 10^3/uL (3.29-11.43) 01/03/24 12:03 RBC 4.91 10^6/uL (3.85-5.65) 01/03/24 12:03 Hgb 9.60 g/dL (11.27-16.99) L 01/03/24 12:03 Hct 34.4 % (36-47) L 01/03/24 12:03 MCV 70.1 fl (85-98) L 01/03/24 12:03 MCH 19.6 pg (27-33) L 01/03/24 12:03 MCHC 27.9 g/dL (30-55) L 01/03/24 12:03 RDW 18.5 % (12.1-15.1) H 01/03/24 12:03 Plt Count 310 10^3/cmm (157-399) 01/03/24 12:03 MPV 10.9 fL (7.4-10.4) H 01/03/24 12:03 Neut % (Auto) 48.3 % 01/03/24 12:03 Lymph % (Auto) 42.7 % 01/03/24 12:03 [place] % (Auto) 6.3 % 01/03/24 12:03 Eos % (Auto) 1.7 % 01/03/24 12:03 Baso % (Auto) 0.3 % 01/03/24 12:03 Neut # (Auto) 3.45 10^3/uL (1.8-7.7) 01/03/24 12:03 Lymph # (Auto) 3.1 10^3/uL (0.8-4.8) 01/03/24 12:03 [place] # (Auto) 0.5 10^3/uL (0.2-0.9) 01/03/24 12:03 Eos # (Auto) 0.1 10^3/uL (0.0-0.8) 01/03/24 12:03 Baso # (Auto) 0.0 10^3/uL (0.0-0.1) 01/03/24 12:03 Nucleated RBC % (auto) 0 % 01/03/24 12:03 Nucleated RBCs # 0.0 /100WBC 01/03/24 12:03 Sodium 139 mmol/L (136-145) 01/03/24 12:03 Potassium 4.2 mmol/L (3.5-5.1) 01/03/24 12:03 Chloride 104 mmol/L (98-107) 01/03/24 12:03 Carbon Dioxide 27 mmol/L (22-29) 01/03/24 12:03 Anion Gap 12.2 (5-19) 01/03/24 12:03 BUN 10 mg/dL (6-20) 01/03/24 12:03 Creatinine 0.6 mg/dL (0.5-0.9) 01/03/24 12:03 GFR Calculation 117.4 mL/min (90-130) 01/03/24 12:03 Glucose 104 mg/dL (65-115) 01/03/24 12:03 Calculated Osmolality 287 mOsm/kg (285-295) 01/03/24 12:03 Calcium 9.0 mg/dL (8.5-10.5) 01/03/24 12:03 Total Bilirubin 0.5 mg/dL (0.15-1.2) 01/03/24 12:03 AST 36 U/L (0-32) H 01/03/24 12:03 ALT 56 U/L (0-33) H 01/03/24 12:03 Alkaline Phosphatase 113 U/L (35-105) H 01/03/24 12:03 Total Protein 7.6 g/dL (6.6-8.7) 01/03/24 12:03 Albumin 4.2 g/dL (3.5-5.2) 01/03/24 12:03 Globulin 3.4 g/dL (1.3-4.6) 01/03/24 12:03 TSH 2.68 uIU/mL (0.27-4.20) 01/03/24 12:03 HCG, Qual Negative (Negative) 01/03/24 12:03 Amorphous Sediment Not Reportable 01/03/24 14:48 No radiology studies performed this visit Discharge Plan Discharge Patient Disposition: Home Clinical Impression: Seizure-like activity Acute cystitis Qualifiers: Hematuria presence: without hematuria Qualified Code(s): N30.00 - Acute cystitis without hematuria Condition: Stable Prescriptions: New phenytoin sodium extended 100 mg capsule 100 mg PO TID Qty: 90 0RF nitrofurantoin monohyd/m-cryst [Macrobid] 100 mg capsule 100 mg PO BID 7 Days Qty: 14 0RF Rx Instructions: must administer with a meal/food No Action levothyroxine 175 mcg tablet 175 mcg PO QAM Discharge Orders: Discharge ED (Routine); Ordered 01/03/24 Ordered By: Merna Mcknight Referrals: Ruddy Maldonado MD [Primary Care Provider] - Activity Restrictions/Additional Instructions: No driving until cleared by neurology. I have placed a case management referral to get you set up with [facility] neurology office. You have been given his loading dose of Dilantin prior to discharge. Will place you on oral Dilantin at home. Also you placing you on antibiotics as she did have a urine culture positive for E. coli. You need to follow-up with primary care next week. Coding Level of Care Code ED Associate Faculty for Suri Schilling
--- NOTE | 2024-01-03 13:51 | XR_ITS ---
WS: [id number] Portable AP upright chest, 01/03/2024 Clinical Data: weakness Comparison: None. Findings: No nodules, masses or effusions are seen. The heart is normal. The pulmonary vascularity is not increased. No pneumonia or pneumothorax is seen. XR/XR chest 1V portable [id number] Impression: Negative chest.
[2024-01-03] MEDS: sodium chloride 0.9% 1,000 ML 999 ML IV (14:32)
[2024-01-03 14:35] VITALS: BP 113/64; PULSE 69; RESP 16; O2SAT 99
[2024-01-03 15:08] VITALS: BP 119/66; PULSE 58; O2SAT 97
[2024-01-03 15:19] LABS: Bilirubin Urine Negative (Negative); Blood Urine Negative (Negative); Glucose Urine UA Negative (Normal); Ketones Urine Negative (Negative); Leukocyte Esterase Urine Trace (Negative); Nitrate Urine Negative (Negative); Protein Urine Negative (Negative); Specific Gravity, Urine 1.019 (1.005-1.030); Urine Appearance Cloudy (CLEAR); Urine Color Yellow (Yellow); pH Urine 6.5 (5-7)
[2024-01-03 15:24] LABS: Add Urine Microscopic? YES; Bacteria Urine 4+ /hpf; WBC Urine 21-50 /hpf (0-5)
[2024-01-03] MEDS: phenytoin 1,000 MG in sodium chloride 0.9% (100 ml) 100 ML, non-DEHP filter tubing onc ... 270 MG IV (15:25)
[2024-01-03 15:26] LABS: Amphetamines Screen Urine Negative (Negative); Barbiturates Screen Urine Negative (Negative); Benzodiazepines Screen Urine Negative (Negative); Cocaine Screen Urine Negative (Negative); Opiate Screen Urine Negative (Negative); PCP Screen Urine Negative (Negative); THC Screen Urine Positive (Negative)
[2024-01-03 15:30] VITALS: BP 105/53; PULSE 65; RESP 16; O2SAT 99
[2024-01-03 15:36] LABS: UA Slide Review UA Slide Review Perf
[2024-01-03 15:37] LABS: Add Urine Culture? Yes
[2024-01-03 16:18] VITALS: BP 112/67; PULSE 75; RESP 16; O2SAT 97
--- NOTE | 2024-01-06 07:25 | DCPLANNER ---
message sent toe neuro for er f/u
== END 2024-01-03 16:22 | disposition home or self-care (01) ==
PROVIDERS: Emergency Medicine; Emergency Provider Physician Assistant; PCP Family Medicine
DX: R56.9 Unspecified convulsions (principal); N30.00 Acute cystitis without hematuria; Z87.891 Personal history of nicotine dependence
CPT/HCPCS: 36415; 71045; 80053; 80306; 81001; 84443; 84703; 85025; 87077; 87086; 87186; 93005; 96365; 99285; J1165; J7030

== ENCOUNTER 2024-07-24 10:25 | Emergency (ER) | payer BC, SELFPAY ==
[2024-07-24] VITALS (21 sets, daily range): BP systolic 104–165; BP diastolic 62–100; PULSE 67–92; RESP 16; TEMP 36.7; O2SAT 92–98; BMI 41.5
--- NOTE | 2024-07-24 11:28 | CT_ITS ---
WS: [id number] CT HEAD TECHNIQUE: Noncontrast CT of the head obtained from the skullbase to the vertex. CLINICAL INFORMATION: seizure COMPARISON: 2023 DLP: 2323.[address] scans at [facility] use at least one of these dose optimization techniques: automated exposure control; mA and/or kV adjustment per patient size (includes targeted exams where dose is matched to clinical indication); or iterative reconstruction. FINDINGS: No evidence of intracranial hemorrhage or mass effect. Ventricular system and basal cisterns are patent. No extra-axial fluid collections. No evidence of mass or mass effect. Normal ha-white differentiation. Polyploid mucosal thickening in the paranasal sinuses. Mild mucosal thickening in the ethmoid air cells. Mastoid air cells are well aerated. CT/CT head wo con* [id number] IMPRESSION: 1. No evidence of intracranial hemorrhage or mass effect. 2. No acute intracranial findings.
[2024-07-24 12:10] LABS: Basophils % 0.5 %; Eosinophils # 0.1 10^3/uL (0.0-0.8); Eosinophils % 1.4 %; Hematocrit 35.5 % (36-47); Lymphocytes # 2.7 10^3/uL (0.8-4.8); Lymphocytes % 41.9 %; Mean Corpuscular HGB Conc 30.4 g/dL (30-55); Mean Corpuscular Hemoglobin 23.5 pg (27-33); Mean Corpuscular Volume 77.3 fl (85-98); Mean Platelet Volume 10.7 fL (7.4-10.4); Monocytes # 0.6 10^3/uL (0.2-0.9); Monocytes % 9.1 %; Neutrophils # 2.96 10^3/uL (1.8-7.7); Neutrophils % 46.5 %; Nucleated Red Blood Cells % 0 %; Platelet Count 222 10^3/cmm (157-399); Red Blood Count 4.59 10^6/uL (3.85-5.65); Red Cell Distribution Width 18.1 % (12.1-15.1); White Blood Count 6.37 10^3/uL (3.29-11.43)
[2024-07-24 12:30] LABS: Alanine Aminotransferase 87 U/L (0-33); Albumin Level 4.2 g/dL (3.5-5.2); Alkaline Phosphatase 107 U/L (35-105); Anion Gap 12.3 (5-19); Aspartate Amino Transferase 38 U/L (0-32); Blood Urea Nitrogen 13 mg/dL (6-20); Calcium 9.6 mg/dL (8.5-10.5); Carbon Dioxide 28 mmol/L (22-29); Chloride 104 mmol/L (98-107); Creatine Phosphokinase 56 U/L (26-192); Creatinine Clr Calc Pharmacy 184.0582; Globulin 2.9 g/dL (1.3-4.6); Glomerular Filtration Rate 117.4 mL/min (90-130); Glucose 99 mg/dL (65-115); Osmolality Calculated 290 mOsm/kg (285-295); Potassium 4.3 mmol/L (3.5-5.1); Sodium 140 mmol/L (136-145); Total Bilirubin 0.3 mg/dL (0.15-1.2); Total Protein 7.1 g/dL (6.6-8.7)
--- NOTE | 2024-07-24 12:41 | PC.NURSE ---
CT CALLED THE ED AND NOTIFIED STAFF THAT PT WAS HAVING A SEIZURE IN CT. THIS NURSE NOTIFIED PROVIDER AND ASKED IF THERE WERE ANY NEW ORDERS. PROVIDER INFORMED THIS NURSE THAT THE PT SEIZURES LAST APPROXIMATELY 3-30 SECONDS AND SO BY THE TIME THERE WERE NEW ORDERS, PT SHOULD BE DONE WITH THE SEIZURE. PROVIDER STATED THAT IF PT WAS STILL HAVING A SEIZURE, 1MG OF ATIVAN COULD BE ADMINISTERED. THIS NURSE WENT OVER TO CT AND ASSESSED PT WITH PRIMARY NURSE. PT WAS DONE WITH THE SEIZURE AT THAT TIME. NO MEDICATION ORDERED OR ADMINISTERED AT THIS TIME.
[2024-07-24 13:17] LABS: HCG Qualitative Urine. Negative (Negative)
[2024-07-24 13:21] LABS: Bilirubin Urine Negative (Negative); Blood Urine Negative (Negative); Glucose Urine UA Negative (Normal); Ketones Urine Negative (Negative); Leukocyte Esterase Urine Negative (Negative); Nitrate Urine Negative (Negative); Protein Urine Negative (Negative); Specific Gravity, Urine 1.008 (1.005-1.030); Urine Appearance Clear (CLEAR); Urine Color Yellow (Yellow); pH Urine 7.5 (5-7)
[2024-07-24 13:23] LABS: Add Urine Microscopic? YES; Bacteria Urine None Seen /hpf; Hyaline Casts Urine 0.81 /lpf; RBC Urine 0-2 /hpf (0-2); Squamous Epithelial Cell Urine 0-5 /hpf (0-5); WBC Urine 0-5 /hpf (0-5)
[2024-07-24 13:28] LABS: Amphetamines Screen Urine Negative (Negative); Barbiturates Screen Urine Negative (Negative); Benzodiazepines Screen Urine Negative (Negative); Cocaine Screen Urine Negative (Negative); Opiate Screen Urine Negative (Negative); PCP Screen Urine Negative (Negative); THC Screen Urine Positive (Negative)
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
--- NOTE | 2024-07-24 15:32 | PC.NURSE ---
er to er transfer report called to Nuria Zheng RN at [facility].
--- NOTE | 2024-07-24 15:43 | PC.NURSE ---
attempted IV, unsuccessful, pt requesting US IV.
== END 2024-07-24 20:00 | disposition short-term general hospital (02) ==
PROVIDERS: Emergency Provider Student in an Organized Health Care Education/Training Program; PCP Family Medicine
DX: R56.1 Post traumatic seizures (principal)
CPT/HCPCS: 70450; 80053; 80306; 81001; 81025; 82550; 83735; 85025; 99285

== ENCOUNTER 2024-11-16 09:24 | Inpatient (IN) | payer BC, SELFPAY ==
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
--- OUTSIDE RECORDS SUMMARY | 2024-11-16 09:31 | XMS_ITS | Encounter Summary ---
Author Organization [facility] Address [address] [facility] [place] [address] Care Team Providers Care Capper Machine Operator Name Role Phone Idania Wilcox APRN, CNP Primary Care Pro vider Fabio Shipley MD Unavailable [phone] Encounter Details Date Type Department Care Team ([facility] Contact Info) Description 07/05/2020 Outside Records [facility] [address] [facility] [place] [address] Interface, Provider Social History Tobacco Use Types Packs/Day Years Used Date Smoking Tobacco: Never Assessed Comments Unknown Sex and Gender Information Value Date Recorded Sex Assigned at Not on file Legal Sex Female 8:53 PM CDT Gender Identity Not on file Sexual Orientation Not on file COVID-19 Exposure Response Date Recorded In the last month, have you been in contact with someone who was confirmed or suspected to have Coronavirus / COVID-19? No / Unsure 07/06/2020 9:08 AM CDT documented as of this encounter Plan of Treatment Not on file documented as of this encounter Visit Diagnoses Not on filedocumented in this encounter Care Teams Capper Machine Operator Relationship Specialty Start Date End Date Idania Wilcox APRN, CNP [address] [place] [address] PCP - General Nurse Practitioner Family 08/09/20 Fabio Shipley MD [address] [place] [address] PCP - Medicaid 08/09/20 documented as of this encounter
--- OUTSIDE RECORDS SUMMARY | 2024-11-16 09:31 | XMS_ITS | Encounter Summary ---
Author Organization [facility] Address [address] [place] [address] Care Team Providers Care Corrugated Box Machine Operator Name Role Phone Idania Wilcox APRN, CNP Primary Care Pro vider Fabio Shipley MD Unavailable [phone] Encounter Details Date Type Department Care Team ([facility] Contact Info) Description 07/26/2020 Outside Records [facility] [address] [facility] [place] [address] Interface, Provider Social History Tobacco Use Types [...] on filedocumented in this encounter Care Teams Corrugated Box Machine Operator Relationship Specialty Start Date End Date Idania Wilcox APRN, CNP [address] [place] [address] PCP - General Nurse Practitioner Family 08/09/20 Fabio Shipley MD [address] [place] [address] PCP - Medicaid 08/09/20 documented as of this encounter
--- OUTSIDE RECORDS SUMMARY | 2024-11-16 09:31 | XMS_ITS | Patient Health Record ---
Author Organization [facility] Address [address] [place] [id number] Care Team Providers Care Court Monitor Name Role Phone Vj Campos Primary Care Provider [phone] Allergies Allergen (clinical drug ingredient) Drug/Non Drug Allergy documented on EMR Reaction Allergy Type Onset Date Status Iodine hives Drug Allergy Active Shellfish (FN) Shellfish-derived Products hives Drug Allergy Active Results Component Value Reference Range Notes Ammonia, Plasma Reviewed date:07/06/2024 12:20:17 PM Interpretation:Normal Performing Lab: Notes/Report: Testing performed by reference lab. [facility] Reported Date/Time: [id number] [facility] Results Received Date/Time: [id number] [facility] Collection Date/Time: [id number] Testing performed at: [facility], [address] [place] [address], [address], Patient Escort: Amarilys Guthrie MD [facility] AMMONIA (P) 37 < OR = 72 umol/L CMP-[facility]/[place] ONLY Reviewed date:07/06/2024 12:19:34 PM Interpretation:Abnormal Performing Lab: Notes/Report: Hepatitis Panel Acute W/Refl ex Reviewed date:07/06/2024 12:19:58 PM Interpretation:Negative Performing Lab: Notes/Report: Testing performed by reference lab. [facility] Reported Date/Time: [id number] [facility] Results Received Date/Time: [id number] [facility] Collection Date/Time: Testing performed at: [facility], [address] [place], [address], Patient Escort: Amairlys Guthrie MD [facility] HEPATITIS A IGM NON-REACTIVE NON-REACTIVE For additional information, please refer to http://[employer]/faq/NGU480 (This link is being provided for informational/ educational purposes only.) HEPATITIS B SURFACE ANTIGEN NON-REACTIVE NON-REACTIVE For additional information, please refer to http://[employer]/faq/ZCB030 (This link is being provided for informational/ educational purposes only.) HEPATITIS B CORE ANTIBODY (IGM) NON-REACTIVE NON-REACTIVE For additional information, please refer to http://[employer]/faq/HOW691 (This link is being provided for informational/ educational purposes only.) HEPATITIS C ANTIBODY NON-REACTIVE NON-REACTIVE HCV antibody was non-reactive. There is no laboratory evidence of HCV infection. In most cases, no further action is required. However, if recent HCV exposure is suspected, a test for HCV RNA (test code 09623) is suggested. For additional information please refer to http://[employer]/faq/XWU24p9 (This link is being provided for informational/ educational purposes only.) CMP-[facility]/[place]/[place] ONLY Reviewed date:09/15/2024 02:51:53 PM Interpretation:Abnormal Performing Lab: Notes/Report: Helicobacter Pylori Breath T est Reviewed date:09/15/2024 02:51:54 PM Interpretation:Positive Performing Lab: Notes/Report: Testing performed by reference lab. [facility] Reported Date/Time: [id number] [facility] Results Received Date/Time: [id number] [facility] Collection Date/Time: [id number] Testing performed at: [facility], [facility], [address] [facility] [place], [address], Patient Escort: Kevyn Kaur DO [facility] HELICOBACTER PYLORI, UREA BREATH TEST DETECTED NOT DETECTED Antimicrobials, proton pump inhibitors, and bismuth preparations are known to suppress H. pylori, and ingestion of these prior to H. pylori diagnostic testing may lead to false negative results. If clinically indicated, the test may be repeated on a new specimen obtained two weeks after discontinuing treatment. However, a positive result is still clinically valid. X ray : ABDOMEN 1 VIEW (KUB) Reviewed date:10/31/2024 02:03:22 PM Interpretation:Abnormal Performing Lab: Notes/Report: Abnormal X ray : ABDOMEN 1 VIEW (KUB) Reviewed date:02/16/2024 05:37:06 PM Interpretation:Normal Performing Lab: Notes/Report: Normal Coronavirus (COVID-19)/Flu C ombo- INHOUSE RAPID PCR SWAB Reviewed date:02/10/2024 09:15:25 AM Interpretation:Negative Performing Lab: Notes/Report: Testing performed at the [address] [place] [address] location. CBC, Diff, Automated Reviewed date:02/13/2024 10:12:57 AM Interpretation:Abnormal Performing Lab: Notes/Report: Testing performed at the [address] [place] [address]. Items were attached to this order: CMP, CBC-HEATH CMP-[facility]/[place]/[place] ONLY Reviewed date:02/13/2024 10:12:57 AM Interpretation:Abnormal Performing Lab: Notes/Report: Testing performed at the [address] [place] [address] location. Items were attached to this order: CMP, CBC-HEATH Echocardiogram Reviewed date:09/21/2024 02:34:03 PM Interpretation:Abnormal Performing Lab: Notes/Report: Abnormal Echocardiogram Reviewed date:09/21/2024 02:34:03 PM Interpretation:Abnormal Performing Lab: Notes/Report: Abnormal CBC, Diff, Automated Reviewed date:08/26/2024 11:32:25 AM Interpretation:Normal Performing Lab: Notes/Report: Testing performed at the [address] [place] [address] location. Liver Fibrosis, Hepatic Func tion Panel w/ Fibrosis-4 (FIB-4) Index Reviewed date:10/23/2024 02:35:21 PM Interpretation:Abnormal Performing Lab: Notes/Report: Testing performed by reference lab. [facility] Reported Date/Time: [id number] [facility] Results Received Date/Time: [id number] [facility] Collection Date/Time: [id number] Testing performed at: [facility], [address] [place] [address], [address], Patient Escort: Amarilys Guthrie MD [facility] Reported Date/Time: [id number] [facility] Results Received Date/Time: [id number] [facility] Collection Date/Time: Testing performed at: [place], [facility], [address] [place], [address], Patient Escort: Amarilys Guthrie MD [facility] Reported Date/Time: [id number] [facility] Results Received Date/Time: [id number] [facility] Collection Date/Time: [id number] Testing performed at: [place], [facility], [address] [place], [address], Patient Escort: Amarilys Guthrie MD [facility] FIB 4 INDEX 0.60 FIB 4 INTERPRETATION SEE NOTE Individuals with NAFLD: FIB-4 index result <1.30 is consistent with the absence of advanced liver fibrosis (F3-F4). Individuals with Hepatitis B: FIB-4 index result <1.00 is consistent with the absence of advanced liver fibrosis (F3-F4). Individuals with Hepatitis C: FIB-4 index result <1.45 is consistent with the absence of advanced liver fibrosis (F3-F4). FIB-4 Index Additional Test Information: The FIB-4 index is a score calculated from patient age and three laboratory measures (AST, ALT, and platelet count) to assess likelihood of advanced liver fibrosis (stage F3 or F4) in individuals with NAFLD (nonalcoholic fatty liver disease), Hepatitis B, or Hepatitis C. Patient characteristics and clinical features should guide interpretation. The application of the FIB-4 index to evaluate NAFLD in pediatric age groups is limited. FIB-4 index ranges for individuals with NAFLD: Low <1.30 Indeterminate 1.30-2.67 High >2.67 FIB-4 index ranges for individuals with Hepatitis B: Low <1.00 Indeterminate 1.00-2.65 High >2.65 FIB-4 index ranges for individuals with Hepatitis C: Low <1.45 Indeterminate 1.45-3.25 High >3.25 References: Damian KOHLER, Jillian A, Herman K, et al. Comparison of noninvasive markers of fibrosis in patients with nonalcoholic fatty liver disease. Clin Gastroenterol Hepatol. 2009;7(10):1662-1276. doi:10.1016/j.cgh.2009.05.0 33 Checo Tracy. Pedrito EK, Clayton HUGHES, et al. A practical clinical approach to liver fibrosis. [facility] Med J. 2018;59(12):628-633. Doi:10.09338/smedj.0075983 For additional resources, please visit: [email or web address]/NA FLD PROTEIN, TOTAL 7.5 6.1-8.1 g/dL ALBUMIN 4.6 3.6-5.1 g/dL GLOBULIN 2.9 1.9-3.7 g/dL (calc) ALBUMIN/GLOBULIN RATIO 1.6 1.0-2.5 (calc) BILIRUBIN, TOTAL 0.6 0.2-1.2 mg/dL BILIRUBIN, DIRECT 0.1 < OR = 0.2 mg/dL BILIRUBIN, INDIRECT 0.5 0.2-1.2 mg/dL (calc) ALKALINE PHOSPHATASE 93 31-125 U/L AST 54 10-30 U/L ALT 111 6-29 U/L PLATELET COUNT 256 140-400 Thousand/uL PT/INR & APTT Reviewed date:10/23/2024 02:35:21 PM Interpretation:Abnormal Performing Lab: Notes/Report: Testing performed by reference lab. [facility] Reported Date/Time: [id number] [facility] Results Received Date/Time: [id number] [facility] Collection Date/Time: [id number] Testing performed at: [place], [facility], [address] [place], [address], Patient Escort: Amarilys Guthrie MD [facility] PARTIAL THROMBOPLASTIN TIME, ACTIVATED 27 23-32 sec This test has not been validated for monitoring unfractionated heparin therapy. For testing that is validated for this type of therapy, please refer to the Heparin Anti-Xa assay (test code 96110). For additional information, please refer to http://education.S B [employer]/faq/GZJ969 (This link is being provided for informational/educational purposes only.) INR 1.1 Reference Range 0.9-1.1 Moderate-intensity Warfarin Therapy 2.0-3.0 Higher-intensity Warfarin Therapy 3.0-4.0 PT 12.3 9.0-11.5 sec Urinalysis, w/ reflex to cul nguyene, Anna Reviewed date:10/20/2024 12:59:45 PM Interpretation:OK for Patient Performing Lab: Notes/Report: [facility]m Testing performed at: [facility], [address] [place] [address], [address], Patient Escort: Amarilys Guthrie MD [facility] Collection Date/Time: [id number] [facility] Results Received Date/Time: [id number] [facility] Reported Date/Time: [id number] Testing performed by reference lab. COLOR YELLOW YELLOW APPEARANCE CLOUDY CLEAR SPECIFIC GRAVITY 1.020 1.001-1.035 PH 7.0 5.0-8.0 GLUCOSE 2+ NEGATIVE BILIRUBIN NEGATIVE NEGATIVE KETONES NEGATIVE NEGATIVE OCCULT BLOOD NEGATIVE NEGATIVE PROTEIN NEGATIVE NEGATIVE NITRITE NEGATIVE NEGATIVE LEUKOCYTE ESTERASE NEGATIVE NEGATIVE WBC 0-5 < OR = 5 /HPF RBC 0-2 < OR = 2 /HPF SQUAMOUS EPITHELIAL CELLS 40-60 < OR = 5 /HPF BACTERIA MANY NONE SEEN /HPF HYALINE CAST NONE SEEN NONE SEEN /LPF NOTE SEE NOTE This urine was analyzed for the presence of WBC, RBC, bacteria, casts, and other formed elements. Only those elements seen were reported. REFLEXIVE URINE CULTURE SEE NOTE NO C ULTURE INDICATED Iron, TIBC, and Ferritin Koo el Reviewed date:10/23/2024 02:35:20 PM Interpretation:Abnormal Performing Lab: Notes/Report: Soum Testing performed at: [facility], [address] [place], [address], Patient Escort: Amarilys Guthrie MD [facility] Collection Date/Time: [id number] [facility] Results Received Date/Time: [id number] [facility] Reported Date/Time: [id number] Testing performed by reference lab. IRON, TOTAL 40 40-190 mcg/dL IRON BINDING CAPACITY 488 250-450 mc g/dL (calc) % SATURATION 8 16-45 % (calc) FERRITIN 13 16-154 ng/mL Hepatic Function Panel (Seru m, LFT) Reviewed date:10/22/2024 01:40:00 PM Interpretation:Abnormal Performing Lab: Notes/Report: [facility] Testing performed at: [facility], [address] [place] [address], [address], Patient Escort: Amarilys Guthrie MD [facility] Collection Date/Time: [id number] [facility] Results Received Date/Time: [id number] [facility] Reported Date/Time: [id number] Testing performed by reference lab. PROTEIN, TOTAL 7.6 6.1-8.1 g/dL ALBUMIN 4.5 3.6-5.1 g/dL GLOBULIN 3.1 1.9-3.7 g/dL (calc) ALBUMIN/GLOBULIN RATIO 1.5 1.0-2.5 (calc) BILIRUBIN, TOTAL 0.6 0.2-1.2 mg/dL BILIRUBIN, DIRECT 0.1 < OR = 0.2 mg/dL BILIRUBIN, INDIRECT 0.5 0.2-1.2 mg/dL (calc) ALKALINE PHOSPHATASE 93 31-125 U/L AST 57 10-30 U/L ALT 113 6-29 U/L GGT (Gamma Glutamyl Transfer ase) Reviewed date:10/23/2024 02:35:21 PM Interpretation:Abnormal Performing Lab: Notes/Report: [facility] Testing performed at: [facility], [address] [place] [address], [address], Patient Escort: Amarilys Guthrie MD [facility] Collection Date/Time: [id number] [facility] Results Received Date/Time: [id number] [facility] Reported Date/Time: [id number] Testing performed by reference lab. GGT 84 3-50 U/L Lactate Dehydrogenase Isoenz ymes Reviewed date:10/23/2024 02:35:20 PM Interpretation:Abnormal Performing Lab: Notes/Report: [facility] Testing performed at: [facility], [address], [place], [place], , Patient Escort: Logan Martinez M.D.,PhD [facility] Collection Date/Time: [id number] [facility] Results Received Date/Time: [id number] [facility] Reported Date/Time: [id number] Testing performed by reference lab. LD1 18 18-32 % LD2 30 29-42 % LD3 18 14-30 % LD4 8 6-13 % LD5 26 5-18 % Vitamin B12 and Folate Reviewed date:12/13/2023 04:42:29 PM Interpretation:Normal Performing Lab: Notes/Report: [facility] Testing performed at: [facility], [address] [place] [address], [address], Patient Escort: Amarilys Guthrie MD [facility] Collection Date/Time: [facility] Results Received Date/Time: [id number] [facility] Reported Date/Time: [id number] Testing performed by reference lab. VITAMIN B12 467 119-0920 pg/mL Please Note: Although the reference range for vitamin B12 is 200-1100 pg/mL, it has been reported that between 5 and 10% of patients with values between 200 and 400 pg/mL may experience neuropsychiatric and hematologic abnormalities due to occult B12 deficiency; less than 1% of patients with values above 400 pg/mL will have symptoms. FOLATE, SERUM 11.3 Reference Range Low: <3.4 Borderline: 3.4-5.4 Normal: >5.4 [facility]/[place]/[place] ONLY Reviewed date:12/13/2023 04:42:30 PM Interpretation:Abnormal Performing Lab: Notes/Report: Testing performed at the [address] [place] [address]. CBC, Diff, Automated Reviewed date:12/13/2023 04:42:30 PM Interpretation:Abnormal Performing Lab: Notes/Report: Testing performed at the [address] [place] [address] location. Urine Dip Reviewed date:12/12/2023 11:21:43 AM Interpretation:OK for Patient Performing Lab: Notes/Report: Testing performed at the [address] [place] [address] location. TSH, w/ refl to Free T4 Reviewed date:12/13/2023 04:42:30 PM Interpretation:Abnormal Performing Lab: Notes/Report: [facility] Testing performed at: [facility], [address] [place], [address], Patient Escort: Amarilys Guthrie MD [facility] Collection Date/Time: [facility] Results Received Date/Time: [id number] [facility] Reported Date/Time: Testing performed by reference lab. TSH W/REFLEX TO FT4 10.50 Reference Range > or = 20 Years 0.40-4.50 Ranges First trimester 0.26-2.66 Second trimester 0.55-2.73 Third trimester 0.43-2.91 T4, FREE 0.7 0.8-1.8 ng/dL Vitamin D-25 Hydroxy Reviewed date:12/13/2023 05:40:54 PM Interpretation:Abnormal Performing Lab: Notes/Report: Testing performed by reference lab. [facility] Reported Date/Time: [id number] [facility] Results Received Date/Time: [id number] [facility] Collection Date/Time: Testing performed at: [facility], [address] [place] [address], [address], [place], [address], Patient Escort: Wayne Ga MD,PhD [facility] VITAMIN D, 25-OH, TOTAL 22 30-100 ng/mL (Note) Vitamin D, 25-Hydroxy reports concentrations of two common forms, 25-OHD2 and 25-OHD3. 25-OHD3 indicates both endogenous production and supplementation. 25-OHD2 is an indicator of exogenous sources such as diet or supplementation. Therapy is based on measurement of Total 25-OHD, with levels <20 ng/mL indicative of Vitamin D deficiency, while levels between 20 ng/mL and 30 ng/mL suggest insufficiency. Optimal levels are > or = 30 ng/mL. For additional information, please refer to http://education.[employer]/faq/GSU913 (This link is being provided for information/educational purposes only.) VITAMIN D, 25-OH, D3 22 Referen ce range: Not established VITAMIN D, 25-OH, D2 <4.0 (Note) Reference range: Not established This test was developed and its analytical performance characteristics have been determined by [employer]. It has not been cleared or approved by the US Food and Drug Administration. This assay has been validated pursuant to the CLIA regulation and is used for Clinical purposes. [facility] med fusion [address] [address],[address] [facility] [address] Wayne Ga MD, PhD See Note 1 Note 1 For additional information, please refer to http://education.S B E/faq/QKQ243 (This link is being provided for informational/ educational purposes only.) Procedure: EKG Reviewed date:01/08/2024 12:40:30 PM Interpretation:Normal Performing Lab: Notes/Report: Normal X ray : Cervical spine 3 vie w Reviewed date:06/15/2024 10:58:33 AM Interpretation:Abnormal Performing Lab: Notes/Report: Abnormal CBC, Diff, Automated Reviewed date:09/15/2024 02:51:54 PM Interpretation:OK for Patient Performing Lab: Notes/Report: Testing performed at the [address] [place] [address] location. Glucose, Fasting/Random-Fing erstick Reviewed date:09/01/2024 01:40:44 PM Interpretation:Abnormal Performing Lab: Notes/Report: Testing performed at the [address] [place] [address] location. Hemoglobin A1c Reviewed date:09/01/2024 01:40:44 PM Interpretation:Abnormal Performing Lab: Notes/Report: Testing performed at the [address] [place] [address] location. TSH, w/ refl to Free T4 Reviewed date:08/26/2024 11:32:25 AM Interpretation:Normal Performing Lab: Notes/Report: Testing performed by reference lab. [facility] Reported Date/Time: [id number] [facility] Results Received Date/Time: [id number] [facility] Collection Date/Time: Testing performed at: [facility], [address] [place] [address], [address], Patient Escort: Amarilys Guthrie MD [facility] TSH W/REFLEX TO FT4 2.73 Reference Range > or = 20 Years 0.40-4.50 Ranges First trimester 0.26-2.66 Second trimester 0.55-2.73 Third trimester 0.43-2.91 CMP-[facility]/[place]/[place] ONLY Reviewed date:08/26/2024 11:32:25 AM Interpretation:Abnormal Performing Lab: Notes/Report: X ray : Skull 3 or less view s Reviewed date:07/31/2024 02:39:37 PM Interpretation:Normal Performing Lab: Notes/Report: Normal Urinalysis, w/ reflex to Anna jack Reviewed date:07/09/2024 10:00:10 AM Interpretation:Abnormal Performing Lab: Notes/Report: Testing performed by reference lab. [facility] Reported Date/Time: [id number] [facility] Results Received Date/Time: [id number] [facility] Collection Date/Time: Testing performed at: [facility], [address] [place], [address], Patient Escort: Amarilys Guthrie MD [facility] COLOR YELLOW YELLOW APPEARANCE TURBID CLEAR SPECIFIC GRAVITY 1.030 1.001-1.035 PH > OR = 9.0 5.0-8.0 GLUCOSE 2+ NEGATIVE BILIRUBIN NEGATIVE NEGATIVE KETONES NEGATIVE NEGATIVE OCCULT BLOOD NEGATIVE NEGATIVE PROTEIN 1+ NEGATIVE NITRITE NEGATIVE NEGATIVE LEUKOCYTE ESTERASE NEGATIVE NEGATIVE WBC NONE SEEN < OR = 5 /HPF RBC NONE SEEN < OR = 2 /HPF SQUAMOUS EPITHELIAL CELLS 10-20 < OR = 5 /HPF BACTERIA MANY NONE SEEN /HPF AMORPHOUS SEDIMENT MODERATE NONE OR FEW /HPF HYALINE CAST NONE SEEN NONE SEEN /LPF YEAST MANY NONE SEEN /HPF NOTE SEE NOTE This urine was analyzed for the presence of WBC, RBC, bacteria, casts, and other formed elements. Only those elements seen were reported. REFLEXIVE URINE CULTURE SEE NOTE CULT URE INDICATED - RESULTS TO FOLLOW CULTURE, URINE, ROUTINE SEE NOTE CULTURE, URINE, ROUTINE Micro Number: [id number] Test Status: Final Specimen Source: Urine Specimen Quality: Adequate Result: Mixed genital rina isolated. These superficial bacteria are not indicative of a urinary tract infection. No further organism identification is warranted on this specimen. If clinically indicated, recollect clean-catch, mid-stream urine and transfer immediately to Urine Culture Transport Tube. Coronavirus (COVID-19)/Flu C ombo- INHOUSE RAPID PCR SWAB Reviewed date:04/10/2024 05:49:18 PM Interpretation:Positive Performing Lab: Notes/Report: Testing performed at the [address] [place] [address]. Rossana Monroy LPN notified (FLU DIPAK PCR) Strep Screen Reviewed date:04/15/2024 11:57:21 AM Interpretation:Negative Performing Lab: Notes/Report: Testing performed at the [facility] location. Reason For Referral Reason 06/23 faxed Evalua te and Treat Diagnosis 1 Cervical rib (Q76.5) Diagnosis 2 Cervical paraspinal muscle spasm (M62.838) Diagnosis 3 Arm numbness (R20.0) Referral Organization [address] [place] [address] are HEATH Referring Provider First Name Vj Referring Provider Last Name Andres Referring Provider Speciality Nurse Marco Antonio ottionerossana Referred Provider [facility] Referred Provider Specialty Physical The rapist General Notes Azeb Pitts 11:26:24 AM > referral faxed. will monitor for start of therapy, Azeb Pitts 06/24/2024 11:12:11 AM >received notification from [facility]. They contacted patient and scheduled her for eval on 07/03/2024 @ 10:30am. Referral Priority Routine Referral Appointment Date 07/03/2024 Reason PASSE Program Diagnosis 1 Major depressive dis order, recurrent severe without psychotic features (F33.2) Diagnosis 2 Bipolar 2 disorder ( F31.81) Diagnosis 3 Personal history of suicidal behavior (Z91.51) Referral Organization [address] [place] [address] are HEATH Referring Provider First Name Vj Referring Provider Last Name Andres Referring Provider Speciality Nurse Prac esha Referred Provider [facility] General Notes Azeb Pitts 02:38:24 PM > Spoke with Vinny Ignacio and sent reminder to Vinny. He will contact patient regarding assistance with signing up on the PASSE Program. This is does not need a referral. Telephone encounter to provider. Referral Priority Routine Reason 09/17 appt Echoca rdiogram Diagnosis 1 Cardiomegaly (I51.7) Referral Organization [address] [place] [address] are [facility]ATH Referring Provider First Name Vj Referring Provider Last Name Andres Referring Provider Speciality Nurse Prac esha Referred Provider [facility] Referred Provider Specialty Outpatient T larry General Notes Azeb Pitts 03:43:15 PM > Per [facility] website: No prior authorization required for Echocardiogram. Order faxed, will monitor for an appointment., Azeb Pitts 09/16/2024 04:00:51 PM CDT >Per [facility], they contacted patient and scheduled Echo 09/17/24 @ 8:30am., Gina Crews 09/17/2024 03:38:02 PM >Per fax from [facility] patient did show up for echo complete. Final report should be available in 1-3 business days., Stephan De Souzandy 09/18/2024 01:11:12 PM >Report received. Last name is Carlos on the report. Referral Priority Routine Referral Appointment Date 09/17/2024 Reason 09/14 faxed Consu lt for medication organization and planning Diagnosis 1 Memory difficulties (R41.3) Diagnosis 2 History of noncompli ance with medical treatment (Z91.199) Diagnosis 3 Non compliance w med ication regimen (Z91.148) Referral Organization [address] [place] [address] are [facility]ATH Referring Provider First Name Vj Referring Provider Last Name Andres Referring Provider Speciality Nurse Prac titioner [facility] Referred Provider Specialty [facility] General Notes Azeb Pitts 04:22:13 PM >referral faxed. will monitor for start of care. Referral Priority Routine Reason 09/21 faxed refer ral - Cardiology Diagnosis 1 Abnormal echocardiog cherie (R93.1) Referral Organization [address] [place] [address] are HEATH Referring Provider First Name Vj Referring Provider Last Name Andres Referring Provider Speciality Nurse Prac pramodr Referred Provider Cardi[facility] Referred Provider Specialty Cardiology General Notes Anita De Souza 05/2024 03:28:35 PM >Faxed referral with documentsHong Lorna 10/01/2024 10:50:56 AM >Per Cardiology patient is scheduled 10/26/24 @ 1pm with Dr James. Patient is aware of appointment. Clinical Notes Rojelio Monroy 02:45:19 PM > To Azeb Pitts for review. Pt is needing an apt with [facility] in [place], [place] due to an abnormal Echo completed on 09/17/2024. Pt is aware of the need of an apt. Thank you. Referral Priority Routine Referral Appointment Date 10/26/2024 Reason 11/17 scheduled . ........... Evaluate and treat Patient is scheduled with Guanako Ashton APRN on 11/17/2024 Diagnosis 1 NAFL (nonalcoholic f atty liver) (K76.0) Diagnosis 2 Nausea & vomiting (R 11.2) Diagnosis 3 Helicobacter pylori (H. pylori) (A04.8) Referral Organization [address] [place] [address] are [facility] Referring Provider First Name Vj Referring Provider Last Name Andres Referring Provider Speciality Nurse Marco Antonio balbuena Ref[facility]erred Provider Specialty Gastroentero logy General Notes Vj Campos 10/19 08:42:18 AM > See TE dated 10/28, patient states she already has an appt on 11/17/24, but they are just waiting on referral to be sent., Azeb Pitts 10/29/2024 10:05:56 AM > Patient is scheduled with Guanako Ashton APRN on 11/17/2024. Referral with records faxed., Azeb Pitts 11/03/2024 09:00:41 AM >Additional films of liver requested by [facility]. 08/01/24 CT and 10/23/24 Xray faxed. Referral Priority Routine Referral Appointment Date 11/17/2024 Medications Medication SIG (Take, Route, Frequency, Duration) Notes Start Date End Date Status Sucralfate 1 GM/10ML 10 mL 1 hour before meals and at bedtime on an empty stomach Orally Four times a day; Duration: 30 days 10/23/2024 Active lamoTRIgine 25 MG 1 tablet Oral twice a day; Duration: 30 days Emergency refill to be filled now Active busPIRone HCl 10 MG 1 tablet Orally Twice a day; Duration: 30 days Emergency refill to be filled now 07/22/2024 Active Citalopram Hydrobromide 20 MG 1 tablet Orally Once a day; Duration: 30 days Emergency refill to be filled now 07/22/2024 Active Keppra 500 MG 1 tablet Orally twice a day; Duration: 30 days Emergency refill to be filled now 07/22/2024 Active Ondansetron 8 MG 1 tablet on the tongue and allow to dissolve Orally twice a day as needed; Duration: 7 days 02/07/2024 Active Methocarbamol 500 MG 1-2 tablets Orally twice a day as needed; Duration: 10 days back pain PRN 05/08/2024 Active Famotidine 40 MG 1 tablet Orally at bedtime; Duration: 90 days 06/02/2024 Not-Taking Fluconazole 150 MG 1 tablet Orally once; Duration: 1 days 07/08/2024 Not-Taking Sertraline HCl 100 MG 1 tablet Orally Once a day; Duration: 30 days 06/02/2024 Not-Taking Fluticasone Propionate 50 MCG/ACT 1 spray in each nostril Nasally Once a day; Duration: 30 days 08/10/2024 Not-Taking traZODone HCl 50 MG 1 tablet at bedtime as needed Orally Once a day 07/03/2024 Not-Taking QUEtiapine Fumarate 25 MG 1 tablet as needed Orally every 8 hours 07/03/2024 Not-Taking Sucralfate 1 GM 1 tablet on an empty stomach Orally 3 times a day 07/03/2024 Not-Taking Acetaminophen Extra Strength 500 MG 1 tablet as needed Orally every 6 hrs OTC, PRN Active Ibuprofen 600 MG 1 tablet with food or milk as needed Orally Three times a day; Duration: 15 days pain 05/08/2024 Active levoFLOXacin 500 MG 1 tablet Orally Once a day; Duration: 10 days 09/29/2024 Not-Taking Amoxicillin 500 MG 1 tablet Orally Twice a day; Duration: 10 days 09/29/2024 Not-Taking ARIPiprazole 5 MG 1 tablet Orally Once a day; Duration: 30 days Emergency refill to be filled now 07/22/2024 Not-Taking Promethazine HCl 12.5 MG 1 tablet as needed Orally every 6 hrs; Duration: 10 days vomiting 09/29/2024 Active Ozempic (0.25 or 0.5 MG/DOSE) 2 MG/3ML 0.25 mg Subcutaneous once a week; Duration: 28 days 09/29/2024 Active Levothyroxine Sodium 150 MCG 1 tablet in the morning on an empty stomach Orally Once a day; Duration: 90 days 06/02/2024 Active Benadryl Allergy 25 MG 1-2 tablets Orally as needed OTC, PRN Active Vitron-C 65-125 MG 1 tablet Orally Once a day; Duration: 30 day(s) 12/12/2023 Not-Taking Amoxicillin-Pot Clavulanate 500-125 MG 1 tablet Orally three times a day; Duration: 7 days 05/08/2024 Not-Taking Omeprazole 20 MG 1 capsule 1/2 to 1 hour before meal Orally twice a day; Duration: 14 days 09/15/2024 Not-Taking lamoTRIgine 100 MG 1/2 tablet Orally daily 07/03/2024 Not-Taking Benzonatate 100 MG 1 capsule as needed Orally Three times a day; Duration: 7 days 04/10/2024 Not-Taking predniSONE 5 MG (21) as directed Orally; Duration: 6 days 04/10/2024 Not-Taking Amoxicillin-Pot Clavulanate 875-125 MG 1 tablet Orally every 12 hrs; Duration: 7 days 03/30/2024 Not-Taking IGlucose Test Strips - as directed SQ three times a week; Duration: 100 days 09/01/2024 Active Lancets 30G - three times a week; Duration: 100 days 09/01/2024 Active Glucometer 1 as directed; Duration: 99 days 09/02/2024 Active Famotidine 40 MG 1 tablet Oral Once a day; Duration: 30 days Not-Taking Social History Tobacco Use: Social History Observation Description Date Details (start date - stop date) Former Smoker 11/19/2011 - 11/18/2018 Sex Assigned At : Social History Observation Description Sex Assigned At Female [facility] Drug Questionnaire Question Answer Notes Have you used drugs other th an those for medical reasons in the past 12 months? Yes yes Smokeless Tobacco Question Answer Notes Tobacco use other than smoking No Have you ever had an STD Question Answer Notes Have you ever had an STD No Prevention Strategies Discussed Other Part Hyst, Tubal Litigation Tobacco Control (Standard) Question Answer Notes Tobacco use: Former smoker When did you start smoking? 11/19/2011 When did you stop smoking? 11/18/2018 How long has it been since y ou last smoked? 5-10 years Additional Findings: Tobacco non-user Ex -trivial cigarette smoker (less than 1/day) AUDIT-C (Standard) Question Answer Notes Did you have a drink contain ing alcohol in the past year? Yes How often did you have a dri nk containing alcohol in the past year? Never (0 point) How many drinks did you have on a typical day when you were drinking in the past year? 1 or 2 drinks (0 point) How often did you have six o r more drinks on one occasion in the past year? Less than monthly (1 point) Points 1 Interpretation Negative Problems Problem Type SNOMED Code ICD Code Onset Dates Problem Status W/U Status Risk Notes Problem Anemia (084844387) Anemia (D64.9) Active confirmed Problem Hypothyroidism (64987815) Hypothyroidism (E03.9) Active confirmed Problem Type II diabetes mellitus without complication (782477984) Type 2 diabetes mellitus without complications (E11.9) Active confirmed Problem Overweight (685039966) Overweight (E66.3) Active confirmed Problem Iron deficiency anemia (21452438) Iron deficiency anemia (D50.9) Active confirmed Problem Bipolar 2 disorder (15266644) Bipolar 2 disorder (F31.81) Active confirmed Problem Severe recurrent major depression without psychotic features (19765823) Major depressive disorder, recurrent severe without psychotic features (F33.2) Active confirmed Problem Amnesia (26194401) Memory difficulties (R41.3) Active confirmed Problem Seizure (42975685) Unspecified convulsions (R56.9) Active confirmed Problem Cardiomegaly (9121431) Cardiomegaly (I51.7) Active confirmed Problem Cervical rib (00956836) Cervical rib (Q76.5) Active confirmed Problem Steatosis of liver (397269349) Hepatic steatosis (K76.0) Active confirmed Problem Esophageal reflux finding (081731624) Gastroesophageal reflux (K21.9) Active confirmed Problem Helicobacter pylori (35849053) Helicobacter pylori (H. pylori) (A04.8) Active confirmed Problem Psychogenic nonepileptic seizure (F44.5) Active confirmed Problem Fatty liver (116912210) NAFL (nonalcoholic fatty liver) (K76.0) Active confirmed Problem Neurosis (disorder) (213418340) Brain fog (F48.8) Active confirmed Problem Body mass index 40+ - severely obese (813147978) Body mass index [BMI] 40.0-44.9, adult (Z68.41) Active confirmed Vital Signs Heart Rate 93 /min 10/23/2024 Back pain and s tomache Temperature 97.6 degrees Fahrenheit 10/23/2024 Back pain and stomache Respiratory Rate 18 /min 10/23/2024 Back pain a nd stomache Height-cm 170.18 cm 10/23/2024 Back pain and s tomache Oximetry 98 10/23/2024 Back pain and s tomache Blood pressure diastolic 74 mm Hg 10/23/2024 Vicky k pain and stomache Weight-kg 119.02 Kg 10/23/2024 Back pain and s tomache Height 67 in 10/23/2024 Back pain and s tomache Blood pressure systolic 128 mm Hg 10/23/2024 Back pain and stomache Weight 262.4 lbs 10/23/2024 Back pain and s tomache BMI 41.09 kg/m2 10/23/2024 Back pain and s tomache Encounters Encounter Location Date Provider Diagnosis [address] [place] [address] [facility] [address] [place], [place] [id number] 10/23/2024 Vj Campos Overweight E66.3 ; Hospital discharge follow-up Z09 ; Dietary counseling Z71.3 ; Nausea R11.0 ; Vomiting R11.10 and Helicobacter pylori (H. pylori) A04.8 [facility] [address] [place], [place] [id number] 10/13/2024 Vj Campos Overweight E66.3 ; Hospital discharge follow-up Z09 ; Dietary counseling Z71.3 ; Bacteria in urine R82.71 ; Elevated liver enzymes R74.8 ; Vomiting R11.10 and Iron deficiency anemia D50.9 [facility] [address] [place] [id number] 06/02/2024 Vj Campos Major depressive disorder, recurrent severe without psychotic features F33.2 ; Hospital discharge follow-up Z09 ; Overweight E66.3 ; Dietary counseling Z71.3 ; Arm numbness R20.0 ; Hypothyroidism E03.9 ; Unspecified convulsions R56.9 and Gastroesophageal reflux K21.9 [facility] [address] [place], [place] [id number] 08/13/2024 Vj Campos Anemia D64.9 ; Hospi carlos discharge follow-up Z09 ; Hypothyroidism E03.9 ; NAFL (nonalcoholic fatty liver) K76.0 ; Psychogenic nonepileptic seizure F44.5 ; Bipolar 2 disorder F31.81 and Major depressive disorder, recurrent severe without psychotic features F33.2 [facility] [address] [place], [place] [id number] 07/23/2024 Vj Campos Overweight E66.3 ; Hospital discharge follow-up Z09 ; Dietary counseling Z71.3 ; Hypothyroidism E03.9 ; NAFL (nonalcoholic fatty liver) K76.0 ; Muscle spasms of neck M62.838 ; Scalp pain R51.9 ; Gastroesophageal reflux K21.9 ; Major depressive disorder, recurrent severe without psychotic features F33.2 and Psychogenic nonepileptic seizure F44.5 [facility] [address] [place], [place] [id number] 08/28/2024 Vj Campos Elevated glucose R73 .09 and Type 2 diabetes mellitus without complications E11.9 [facility] [address] [place], [place] [id number] 08/10/2024 Vj Campos Overweight E66.3 ; S inus congestion R09.81 and Dietary counseling Z71.3 [facility] [address] [place] [id number] 06/25/2024 Vj Campos Elevated liver enzym es R74.8 ; Hospital discharge follow-up Z09 ; Brain fog F48.8 and Hepatic steatosis K76.0 [facility] [address] [place], [place] [id number] 06/15/2024 Vj Campos Overweight E66.3 ; Cervical rib Q76.5 ; Dietary counseling Z71.3 ; Muscle spasms of neck M62.838 and Cervical paraspinal muscle spasm M62.838 [facility] [address] [place], [place] [id number] 05/08/2024 Vj Campos Overweight E66.3 ; B ack pain M54.9 ; Dietary counseling Z71.3 and Tooth abscess K04.7 [facility] [address] [place], [place] [id number] 04/10/2024 Vj Campos Sore throat J02.9 ; Influenza A J10.1 ; Fever R50.9 ; Overweight E66.3 ; Dietary counseling Z71.3 ; Cough R05.9 and Nausea R11.0 [facility] [address] [place], [place] [id number] 03/30/2024 Vj Campos Overweight E66.3 ; Otitis media of right ear H66.91 ; Dietary counseling Z71.3 ; Body mass index [BMI] 40.0-44.9, adult Z68.41 and Iron deficiency anemia D50.9 [facility] [address] [place], [place] [id number] 02/07/2024 Vj Campos Diarrhea R19.7 ; Gastroenteritis K52.9 ; Vomiting R11.10 ; Overweight E66.3 ; Dietary counseling Z71.3 ; Foot pain, right M79.671 and Elevated liver enzymes R74.[address] [place] [address] [address] [id number] 01/03/2024 Vj Campos Overweight E66.3 ; Hospital discharge follow-up Z09 ; Dietary counseling Z71.3 ; Headache R51.9 ; Nausea & vomiting R11.2 ; Hypothyroidism E03.9 ; Iron deficiency anemia D50.9 ; Syncope R55 and Abnormal urinalysis R82.[address] [place], [place] [address]y [address], [place] [id number] 09/29/2024 Vj Campos Overweight E66.3 ; T ype 2 diabetes mellitus without complications E11.9 ; Dietary counseling Z71.3 ; Helicobacter pylori (H. pylori) A04.8 ; Nausea R11.0 ; Vomiting R11.10 ; Headache R51.9 and Lumbago M54.[address] [place] [address] [address], [place] [id number] 12/30/2023 Vj Campos Overweight E66.3 ; Hospital discharge follow-up Z09 ; Dietary counseling Z71.3 ; Hypothyroidism E03.9 ; Seizure-like activity R56.9 ; Lethargic R53.83 ; Syncope R55 and Iron deficiency anemia D50.[address] [place] [address] [address], [place] [id number] 07/06/2024 Vj Campos Overweight E66.3 ; Hospital discharge follow-up Z09 ; Dietary counseling Z71.3 ; Urinary frequency R35.0 ; Nidia infection B37.9 ; Major depressive disorder, recurrent severe without psychotic features F33.2 and Suicidal behavior without attempted self-injury R45.[address] [place], [place] [address]y [address] [id number] 12/06/2023 Vj Campos Pelvic pain R10.2 ; Hospital discharge follow-up Z09 ; NAFL (nonalcoholic fatty liver) K76.0 ; Hypothyroidism E03.9 ; Fatigue R53.83 ; Iron deficiency anemia D50.9 and Positive depression screening Z13.[address] [place], [place] [address]y [address], [place] [id number] 09/10/2024 Vj Campos Overweight E66.3 ; Memory deficits R41.3 ; Dietary counseling Z71.3 ; Nausea and vomiting R11.2 ; Fatigue R53.83 ; NAFL (nonalcoholic fatty liver) K76.0 ; Memory difficulties R41.3 ; History of noncompliance with medical treatment Z91.199 ; Non compliance w medication regimen Z91.148 ; Major depressive disorder, recurrent severe without psychotic features F33.2 ; Bipolar 2 disorder F31.81 ; Personal history of suicidal behavior Z91.51 ; Helicobacter pylori (H. pylori) A04.8 and Cardiomegaly I51.7 [facility] [address] [place], [place] [id number] 10/22/2024 Vj Campos [facility] [address] [place] [id number] 10/12/2024 Vj Campos [facility] [address] [place] [id number] 06/01/2024 Vj Campos [facility] [address] [place] [id number] 05/21/2024 Vj Campos [facility] [address] [place] [id number] 05/18/2024 Vj Campos [facility] [address] [place], [place] [id number] 05/05/2024 Vj Campos [facility] [address] [place], [place] [id number] 02/10/2024 Vj Campos [facility] [address] [place] [id number] 01/13/2024 Vj Campos [facility] [address] [place] [id number] 01/03/2024 Vj Campos [facility] [address] [place] [id number] 12/30/2023 Vj Campos [facility] [address] [place], [place] [id number] 12/27/2023 Vj Campos [facility] [address] [place], [place] [id number] 09/21/2024 Vj Campos Abnormal echocardiog cherie R93.1 [facility] [address] [place] [id number] 09/16/2024 Vj Campos [facility] [address] [place], [place] [id number] 09/15/2024 Vj Campos [facility] [address] [place] [id number] 09/15/2024 Vj Campos [facility] [address] [place] [id number] 09/14/2024 Vj Campos Nausea R11.0 [facility] [address] [place] [address] 09/01/2024 Vj Campos [facility] [address] [place], [place] [id number] 08/26/2024 Vj Campos Elevated glucose R73 .09 [facility] [address] [place], [place] [id number] 08/20/2024 Vj Campos [facility] [address] [place], [place] [id number] 08/10/2024 Vj Campos [facility] [address] [place], [place] [id number] 08/03/2024 Vj Campos [facility] [address] [place], [place] [id number] 08/03/2024 Vj Campos [facility] [address] [place], [place] [id number] 07/29/2024 Vj Campos [facility] [address] [place] [address] 07/28/2024 Vj Campos [facility] [address] [place], [place] [id number] 07/24/2024 Vj Campos [facility] [address] [place] [address] 07/17/2024 Vj Campos [facility] [address] [place], [place] [id number] 07/02/2024 Vj Campos [facility] [address] [place], [place] [id number] 06/25/2024 Vj Campos [facility] [address] [place], [place] [id number] 06/24/2024 Vj Campos [facility] [address] [place] [id number] 06/17/2024 Vj Campos [facility] [address] [place] [id number] 06/15/2024 Vj Campos [facility] [address] [place], [place] [id number] 04/10/2024 Vj Campos [address] [place] [address] [facility] [address] [place] [address] 10/28/2024 Vj Campos [address] [place] [address] [facility] [address] [place], [place] [id number] 10/26/2024 Vj Campos [address] [place] [address] [address] [place], [place] [id number] 10/23/2024 Vj Campos Assessments Encounter Date Diagnosis (ICD Code) Assessment Notes Treatment Notes Treatment Clinical Notes Section Notes 12/30/2023 Overweight (ICD-10 - E66.3) 12/30/2023 Hospital discharge follow-up (ICD-10 - Z09) I have reviewed these documents. Will request note from [facility] dated 12/27. 01/03/2024 Overweight (ICD-10 - E66.3) 01/03/2024 Hospital discharge follow-up (ICD-10 - Z09) I have reviewed these documents. Advised patient that we are working on referral to Neurology in [place]. I would like for her to have a EEG. [facility] has Neurologist, and would like her to be evaluated somewhere that will keep her for observation. Advised to take patient to [facility]> 02/07/2024 Diarrhea (ICD-10 - R19.7) 02/07/2024 Gastroenteritis (ICD-10 - K52.9) 03/30/2024 Overweight (ICD-10 - E66.3) 03/30/2024 Otitis media of right ear (ICD-10 - H66.91) OTITIS MEDIA: Give antibiotic as directed. Reviewed importance of completing medication as prescribed. For ear pain, can take over the counter acetaminophen or ibuprofen as needed. Recheck in 48 hours if ear pain is not improving, and schedule follow up visit if any drainage from ear other than wax. 06/02/2024 Hospital discharge follow-up (ICD-10 - Z09) 06/02/2024 Major depressive disorder, recurrent severe without psychotic features (ICD-10 - F33.2) Take medication as directed. Recommended to see Behavioral health to discuss symptoms and for medication adjustments. Recommended breathing exercises and relaxation techniques when anxiety occurs. Performing regular exercise, especially yoga may be beneficial to help prevent anxiety attacks. Also, limiting caffeine and alcohol intake may help prevent attacks. 06/15/2024 Overweight (ICD-10 - E66.3) 06/15/2024 Cervical rib (ICD-10 - Q76.5) 06/25/2024 Elevated liver enzymes (ICD-10 - R74.8) 06/25/2024 Hospital discharge follow-up (ICD-10 - Z09) 07/06/2024 Overweight (ICD-10 - E66.3) 07/06/2024 Hospital discharge follow-up (ICD-10 - Z09) I have reviewed these documents 07/23/2024 Overweight (ICD-10 - E66.3) 07/23/2024 Hospital discharge follow-up (ICD-10 - Z09) I have reviewed these documents. 08/10/2024 Overweight (ICD-10 - E66.3) 08/10/2024 Sinus congestion (ICD-10 - R09.81) Take medication as prescribed. Use nasal saline spray to help break up congestion and thin nasal secretions. Drink plenty of water during the day to also help thin secretions. Can do warm salt water gargles for sore throat. May take a teaspoon of honey for cough. Discussed s/sx to watch for and when to RTC or go to ER. 08/13/2024 Anemia (ICD-10 - D64.9) 08/13/2024 Hospital discharge follow-up (ICD-10 - Z09) I have reviewed documentation. 08/26/2024 Elevated glucose (ICD-10 - R73.09) 08/28/2024 Elevated glucose (ICD-10 - R73.09) 09/10/2024 Overweight (ICD-10 - E66.3) 09/10/2024 Memory deficits (ICD-10 - R41.3) 09/14/2024 Nausea (ICD-10 - R11.0) 05/08/2024 Back pain (ICD-10 - M54.9) Handout given on lower back pain. REST: Rest from aggravating activity. Avoid prolonged sitting, driving, bending, heavy lifting and twisting. ICE: Ice applied to the low back for 15 minutes every 1 2 hours is helpful in reducing pain and spasm. Avoid using heat for the first 48 hours of an acute injury. NSAIDs: Your doctor may prescribe anti-inflammatory medication such as aspirin, advil, aleve, ibuprofen or naproxen sodium. -DO NOT TAKE TYLENOL PRODUCTS EARLY EXERCISE: Gentle exercise for mobility and stretching (especially the muscles of the legs and back) can help decrease the severity, duration and recurrence of low back pain. Try the suggested exercises on the back of this sheet. Do not perform exercises that increase your pain. POSITIONING: Modifying your sleeping position can help ease strain to your low back. Make sure your bed is firm enough to give you adequate support, and use a small pillow for you head. If you sleep on your back, try putting a pillow under your knees. Or if you prefer to sleep side lying, put a pillow between your thighs and if you are side bent, a folded towel under your waistline. Encourage proper lifting technique. Rest and ROM on Lower back with strengthing core exercises as tolerated. If symptoms continue or worsen return to clinic. 05/08/2024 Overweight (ICD-10 - E66.3) 04/10/2024 Sore throat (ICD-10 - J02.9) 04/10/2024 Influenza A (ICD-10 - J10.1) Discussed with patient that influenza is a viral respiratory infection that is more severe than the common cold. Fever can be prolonged and body aches and chills are common with this illness. Since this is a viral infection antibiotics will not help. You should stay home, rest, and drink extra fluids. You may give over the counter acetaminophen or ibuprofen to help relieve fever, headache, and body aches. A humidifier may help you breathe more comfortably when congested and coughing. Nasal saline spray recommended to help moisturize the nose and thin nasal drainage. Cough drops or lozenges sndf/or warm teas and honey may be used. Symptoms may last up to 10 days. You may return to school/work when fever free for at least 24 hours and feeling better. Seek emergency care if your child is having problems breathing, is not tolerating fluids or appears dehydrated, seems sicker, or having any severe symptoms. 12/06/2023 Hospital discharge follow-up (ICD-10 - Z09) I have reviewed these documents. 12/06/2023 Pelvic pain (ICD-10 - R10.2) If symptoms worsen, follow up with Dr. Adames 09/21/2024 Abnormal echocardiogram (ICD-10 - R93.1) 09/29/2024 Type 2 diabetes mellitus without complications (ICD-10 - E11.9) Patient has not been able to take medications due to vomiting after eating, drinking and taking medication. Her glucose has been running in 200's, even though she is not eating or drinking much. Keep your blood sugar below 130 when fasting in the morning and below 180 after meals. -Eat a good diet that spreads carbohydrate throughout the day. Carbohydrate-the body's main source of fuel-affects blood sugar more than any other nutrient. Carbohydrate is in fruits, vegetables, milk, and yogurt. It also is in breads, cereals, vegetables such as potatoes and corn, and sugary foods such as candy and cakes. -Aim for 30 minutes of exercise on most, preferably all, days of the week. Walking is a good choice. You also may want to do other activities, such as running, swimming, cycling, or playing tennis or team sports. If your doctor says it's okay, do muscle-strengtheni ng exercises at least 2 times a week. -Take your medicines exactly as prescribed. Call your doctor if you think you are having a problem with your medicine. You will get more details on the specific medicines your doctor prescribes. -Check your blood sugar as often as your doctor recommends. It is important to keep track of any symptoms you have, such as low blood sugar. Also tell your doctor if you have any changes in your activities, diet, or insulin use. -Talk to your doctor before you start taking aspirin every day. Aspirin can help certain people lower their risk of a heart attack or stroke. But taking aspirin isn't right for everyone, because it can cause serious bleeding. -Do not smoke. If you need help quitting, talk to your doctor about stop-smoking programs and medicines. These can increase your chances of quitting for good. -Keep your cholesterol and blood pressure at normal levels. You may need to take one or more medicines 09/29/2024 Overweight (ICD-10 - E66.3) 10/13/2024 Overweight (ICD-10 - E66.3) 10/23/2024 Overweight (ICD-10 - E66.3) 10/23/2024 Hospital discharge follow-up (ICD-10 - Z09) 10/13/2024 Hospital discharge follow-up (ICD-10 - Z09) 10/23/2024 Dietary counseling (ICD-10 - Z71.3) The following information is provided to help patients understand the role BMI, nutrition, and physical activity play in a patient's overall health. Please review the information available in these links. ADULT BMI: https://www.[employer]/healthyweight/as sessing/bmi/adult_ bmi/english_bmi_ca lculator/bmi_calcu lator.html DIETARY GUIDELINES: https://www.dietInnoPath Software.gov/si natalya/default/files/ 2020-04/Dietary_Gu idelines_for_Ameri cans-... PHYSICAL ACTIVITIES GUIDELINES: https://www.[employer]weight/ph ysical_activity/in dex.html 10/13/2024 Dietary counseling (ICD-10 - Z71.3) The following information is provided to help patients understand the role BMI, nutrition, and physical activity play in a patient's overall health. Please review the information available in these links. ADULT BMI: https://www.[employer]/healthyweight/as sessing/bmi/adult_ bmi/english_bmi_ca lculator/bmi_calcu lator.html DIETARY GUIDELINES: https://www.[employer]/si natalya/default/files/ 2020-04/Dietary_Gu idelines_for_Ameri cans-... PHYSICAL ACTIVITIES GUIDELINES: https://www.[employer]ecn[employer]weight/ph ysical_activity/in dex.html 09/29/2024 Dietary counseling (ICD-10 - Z71.3) The following information is provided to help patients understand the role BMI, nutrition, and physical activity play in a patient's overall health. Please review the information available in these links. ADULT BMI: https://www.[employer]/healthyweight/as sessing/bmi/adult_ bmi/english_bmi_ca lculator/bmi_calcu lator.html DIETARY GUIDELINES: https://www.[employer].gov/si natalya/default/files/ 2020-04/Dietary_Gu idelines_for_Ameri cans-... PHYSICAL ACTIVITIES GUIDELINES: https://www.cdc.go v/healthyweight/ph ysical_activity/in dex.html 12/06/2023 NAFL (nonalcoholic fatty liver) (ICD-10 - K76.0) Nonalcoholic fatty liver disease (NAFLD) is the term for conditions in which fat builds up in the liver in people who drink little or no alcohol. Of those who have this condition: Most have a type called nonalcoholic fatty liver (NAFL). These people have fat in their liver, but it doesn't seem to cause damage. Some have a more serious type called nonalcoholic steatohepatitis (ZARAGOZA). The buildup of fat in the liver causes inflammation and damage. Over time, this can cause scarring of the liver, which can lead to cirrhosis and liver failure. Experts don't really know what causes fat buildup in the liver, but being obese seems to increase the risk. NAFLD is often linked to a group of health problems called metabolic syndrome. This includes obesity, high cholesterol, high blood pressure, and insulin resistance or diabetes. Most people who have NAFLD also have one or more of these health problems. But some have none of these other conditions. NAFLD usually doesn't cause symptoms. It can be diagnosed with blood tests and imaging tests, such as a CT scan, an ultrasound, or an MRI. In some cases, a liver biopsy may be done. Treatment focuses on managing related conditions like diabetes and making lifestyle changes, including losing weight if needed, eating a healthy diet, and being more active. A doctor may prescribe medicines for related conditions or to help with weight loss. Weight-loss surgery may be an option for people who have obesity. Follow-up care is a curran part of your treatment and safety. Be sure to make and go to all appointments, and call your doctor if you are having problems. It's also a good idea to know your test results and keep a list of the medicines you take. How can you care for yourself at home? Lose weight if you need to. Losing even 5% of your weight can make a difference to your health. A healthy eating plan and being more active can help you manage your weight. But if you need more help, talk to your doctor about other weight-loss options. Manage other health problems. These may include diabetes, high blood pressure, and high cholesterol. If your doctor prescribes medicines, take them exactly as prescribed. Eat healthy foods. This includes vegetables, fruits, nuts, beans, lean meat, fish, and whole grains. Limit things that are not so good for you, like saturated fat and sugar. Be more active. Try to get at least 30 minutes of exercise 5 or more days of the week. Walking is a good choice. Avoid alcohol. Alcohol can damage the liver and cause other health problems. Don't use tobacco. Quitting tobacco can help to reduce your risk of future health problems. Get immunized. Having NAFLD increases your risk for infections, so it's important to get all recommended vaccines. Call 911 anytime you think you may need emergency care. For example, call if: You have trouble breathing. You vomit blood or what looks like coffee grounds. Call your doctor now or seek immediate medical care if: You feel very sleepy or confused. You have new or worse belly pain. You have a fever. There is a new or increasing yellow tint to your skin or the whites of your eyes. You have any abnormal bleeding, such as: Nosebleeds. Vaginal bleeding that is different (heavier, more frequent, at a different time of the month) than what you are used to. Bloody or black stools, or rectal bleeding. Bloody or pink urine. Watch closely for changes in your health, and be sure to contact your doctor if: Your belly is getting bigger. You are gaining weight. Your symptoms get worse. 05/08/2024 Dietary counseling (ICD-10 - Z71.3) The following information is provided to help patients understand the role BMI, nutrition, and physical activity play in a patient's overall health. Please review the information available in these links. ADULT BMI: https://www.cdc.go v/healthyweight/as sessing/bmi/adult_ bmi/english_bmi_ca lculator/bmi_calcu lator.html DIETARY GUIDELINES: https://www.dietar yguidelines.gov/si natalya/default/files/ 2020-04/Dietary_Gu idelines_for_Ameri cans-... PHYSICAL ACTIVITIES GUIDELINES: https://www.cdc.go v/healthyweight/ph ysical_activity/in dex.html 04/10/2024 Fever (ICD-10 - R50.9) 09/10/2024 Dietary counseling (ICD-10 - Z71.3) The following information is provided to help patients understand the role BMI, nutrition, and physical activity play in a patient's overall health. Please review the information available in these links. ADULT BMI: https://www.[employer]/healthyweight/as sessing/bmi/adult_ bmi/english_bmi_ca lculator/bmi_calcu lator.html DIETARY GUIDELINES: https://www.[employer]/si natalya/default/files/ 2020-04/Dietary_Gu idelines_for_Ameri cans-... PHYSICAL ACTIVITIES GUIDELINES: https://www.[employer]weight/ph ysical_activity/in dex.html 08/28/2024 Type 2 diabetes mellitus without complications (ICD-10 - E11.9) 08/13/2024 Hypothyroidism (ICD-10 - E03.9) 08/10/2024 Dietary counseling (ICD-10 - Z71.3) The following information is provided to help patients understand the role BMI, nutrition, and physical activity play in a patient's overall health. Please review the information available in these links. ADULT BMI: https://www.[employer]/healthyweight/as sessing/bmi/adult_ bmi/english_bmi_ca lculator/bmi_calcu lator.html DIETARY GUIDELINES: https://www.[employer]/si natalya/default/files/ 2020-04/Dietary_Gu idelines_for_Ameri cans-... PHYSICAL ACTIVITIES GUIDELINES: https://www.[employer]/ph ysical_activity/in dex.html 07/23/2024 Dietary counseling (ICD-10 - Z71.3) The following information is provided to help patients understand the role BMI, nutrition, and physical activity play in a patient's overall health. Please review the information available in these links. ADULT BMI: https://www.[employer]weight/as sessing/bmi/adult_ bmi/english_bmi_ca lculator/bmi_calcu lator.html DIETARY GUIDELINES: https://www.[employer]/si natalya/default/files/ 2020-04/Dietary_Gu idelines_for_Ameri can-2020-... PHYSICAL ACTIVITIES GUIDELINES: https://www.[employer]/healthyweight/ph ysical_activity/in dex.html 07/06/2024 Dietary counseling (ICD-10 - Z71.3) The following information is provided to help patients understand the role BMI, nutrition, and physical activity play in a patient's overall health. Please review the information available in these links. ADULT BMI: https://www.[employer]/healthyweight/as sessing/bmi/adult_ bmi/english_bmi_ca lculator/bmi_calcu lator.html DIETARY GUIDELINES: https://www.dietInnoPath Software.[employer]/si natalya/default/files/ 2020-04/Dietary_Gu idelines_for_Ameri -... PHYSICAL ACTIVITIES GUIDELINES: https://www.[employer]/healthyweight/ph ysical_activity/in dex.html 06/25/2024 Brain fog (ICD-10 - F48.8) Est with [facility]. Advised to make follow up appt for memory issues and worsening brain fog. 06/15/2024 Dietary counseling (ICD-10 - Z71.3) The following information is provided to help patients understand the role BMI, nutrition, and physical activity play in a patient's overall health. Please review the information available in these links. ADULT BMI: https://www.[employer]/healthyweight/as sessing/bmi/adult_ bmi/english_bmi_ca lculator/bmi_calcu lator.html DIETARY GUIDELINES: https://www.dietInnoPath Software.gov/si natalya/default/files/ 2020-04/Dietary_Gu idelines_for_Ameri -... PHYSICAL ACTIVITIES GUIDELINES: https://www.[employer]weight/ph ysical_activity/in dex.html 06/02/2024 Overweight (ICD-10 - E66.3) 03/30/2024 Dietary counseling (ICD-10 - Z71.3) The following information is provided to help patients understand the role BMI, nutrition, and physical activity play in a patient's overall health. Please review the information available in these links. ADULT BMI: https://www.[employer]igu/healthyweight/as sessing/bmi/adult_ bmi/english_bmi_ca lculator/bmi_calcu lator.html DIETARY GUIDELINES: https://www.[employer].gov/si natalya/default/files/ 2020-04/Dietary_Gu idelines_for_Ameri cans-... PHYSICAL ACTIVITIES GUIDELINES: https://www.[employer]weight/ph ysical_activity/in dex.html 01/03/2024 Dietary counseling (ICD-10 - Z71.3) The following information is provided to help patients understand the role BMI, nutrition, and physical activity play in a patient's overall health. Please review the information available in these links. ADULT BMI: https://www.[employer]/healthyweight/as sessing/bmi/adult_ bmi/english_bmi_ca lculator/bmi_calcu lator.html DIETARY GUIDELINES: https://www.[employer].gov/si natalya/default/files/ 2020-04/Dietary_Gu idelines_for_Ameri -... PHYSICAL ACTIVITIES GUIDELINES: https://www.[employer]/ph ysical_activity/in dex.html 02/07/2024 Vomiting (ICD-10 - R11.10) Discussed natural history of illness and supportive measures including good hydration with water, propel, or pedialyte. Avoidance of anti-diarrheal medications or medications to stop the diarrhea/vomiting. When reintroducing foods, start small and bland and advance as tolerated. Discussed warning signs of dehydration including decreased urine output, or persistence beyond 10 days or blood in the stool. 12/30/2023 Dietary counseling (ICD-10 - Z71.3) The following information is provided to help patients understand the role BMI, nutrition, and physical activity play in a patient's overall health. Please review the information available in these links. ADULT BMI: https://www.[employer]/healthyweight/as sessing/bmi/adult_ bmi/english_bmi_ca lculator/bmi_calcu lator.html DIETARY GUIDELINES: https://www.[employer].gov/si natalya/default/files/ 2020-04/Dietary_Gu idelines_for_Tello -... PHYSICAL ACTIVITIES GUIDELINES: https://www.cdc.go v/healthyweight/ph ysical_activity/in dex.html 12/30/2023 Hypothyroidism (ICD-10 - E03.9) Advised to hold levothyroxine for 3 days to see if symptoms are a side effect of medication. Also noted a huge variance between TSH levels at both hospitals. WIll need treatment but want to rule out that medication is not the cause of symptoms. 02/07/2024 Overweight (ICD-10 - E66.3) 01/03/2024 Headache (ICD-10 - R51.9) 03/30/2024 Body mass index [BMI] 40.0-44.9, adult (ICD-10 - Z68.41) 06/15/2024 Muscle spasms of neck (ICD-10 - M62.838) 06/02/2024 Dietary counseling (ICD-10 - Z71.3) The following information is provided to help patients understand the role BMI, nutrition, and physical activity play in a patient's overall health. Please review the information available in these links. ADULT BMI: https://www.cdc. [employer]/healthyweight/as sessing/bmi/adult_ bmi/english_bmi_ca lculator/bmi_calcu lator.html DIETARY GUIDELINES: https://www.dietar yguidelines.gov/si natalya/default/files/ 2020-04/Dietary_Gu idelines_for_Tello -... PHYSICAL ACTIVITIES GUIDELINES: https://www.cdc.go v/healthyweight/ph ysical_activity/in dex.html 06/25/2024 Hepatic steatosis (ICD-10 - K76.0) Nonalcoholic fatty liver disease (NAFLD) is the term for conditions in which fat builds up in the liver in people who drink little or no alcohol. Of those who have this condition: Most have a type called nonalcoholic fatty liver (NAFL). These people have fat in their liver, but it doesn't seem to cause damage. Some have a more serious type called nonalcoholic steatohepatitis (ZARAGOZA). The buildup of fat in the liver causes inflammation and damage. Over time, this can cause scarring of the liver, which can lead to cirrhosis and liver failure. Experts don't really know what causes fat buildup in the liver, but being obese seems to increase the risk. NAFLD is often linked to a group of health problems called metabolic syndrome. This includes obesity, high cholesterol, high blood pressure, and insulin resistance or diabetes. Most people who have NAFLD also have one or more of these health problems. But some have none of these other conditions. NAFLD usually doesn't cause symptoms. It can be diagnosed with blood tests and imaging tests, such as a CT scan, an ultrasound, or an MRI. In some cases, a liver biopsy may be done. Treatment focuses on managing related conditions like diabetes and making lifestyle changes, including losing weight if needed, eating a healthy diet, and being more active. A doctor may prescribe medicines for related conditions or to help with weight loss. Weight-loss surgery may be an option for people who have obesity. Follow-up care is a curran part of your treatment and safety. Be sure to make and go to all appointments, and call your doctor if you are having problems. It's also a good idea to know your test results and keep a list of the medicines you take. How can you care for yourself at home? Lose weight if you need to. Losing even 5% of your weight can make a difference to your health. A healthy eating plan and being more active can help you manage your weight. But if you need more help, talk to your doctor about other weight-loss options. Manage other health problems. These may include diabetes, high blood pressure, and high cholesterol. If your doctor prescribes medicines, take them exactly as prescribed. Eat healthy foods. This includes vegetables, fruits, nuts, beans, lean meat, fish, and whole grains. Limit things that are not so good for you, like saturated fat and sugar. Be more active. Try to get at least 30 minutes of exercise 5 or more days of the week. Walking is a good choice. Avoid alcohol. Alcohol can damage the liver and cause other health problems. Don't use tobacco. Quitting tobacco can help to reduce your risk of future health problems. Get immunized. Having NAFLD increases your risk for infections, so it's important to get all recommended vaccines. Call 911 anytime you think you may need emergency care. For example, call if: You have trouble breathing. You vomit blood or what looks like coffee grounds. Call your doctor now or seek immediate medical care if: You feel very sleepy or confused. You have new or worse belly pain. You have a fever. There is a new or increasing yellow tint to your skin or the whites of your eyes. You have any abnormal bleeding, such as: Nosebleeds. Vaginal bleeding that is different (heavier, more frequent, at a different time of the month) than what you are used to. Bloody or black stools, or rectal bleeding. Bloody or pink urine. Watch closely for changes in your health, and be sure to contact your doctor if: Your belly is getting bigger. You are gaining weight. Your symptoms get worse. 07/06/2024 Urinary frequency (ICD-10 - R35.0) 07/23/2024 Hypothyroidism (ICD-10 - E03.9) 09/10/2024 Nausea and vomiting (ICD-10 - R11.2) 08/13/2024 NAFL (nonalcoholic fatty liver) (ICD-10 - K76.0) 05/08/2024 Tooth abscess (ICD-10 - K04.7) Encouraged to take medication as prescribed; complete all medication to treat the infection. Encouraged warm salt water gargles to help with pain and swelling. Tylenol/Ibuprofen OTC can also be beneficial. Encouraged to schedule follow up with dentist for evaluation for continued infection, dental caries, or for possible extraction of tooth. 04/10/2024 Overweight (ICD-10 - E66.3) 12/06/2023 Hypothyroidism (ICD-10 - E03.9) 09/29/2024 Helicobacter pylori (H. pylori) (ICD-10 - A04.8) 10/13/2024 Bacteria in urine (ICD-10 - R82.71) 10/23/2024 Nausea (ICD-10 - R11.0) 10/23/2024 Vomiting (ICD-10 - R11.10) 10/13/2024 Elevated liver enzymes (ICD-10 - R74.8) 12/06/2023 Fatigue (ICD-10 - R53.83) 04/10/2024 Dietary counseling (ICD-10 - Z71.3) The following information is provided to help patients understand the role BMI, nutrition, and physical activity play in a patient's overall health. Please review the information available in these links. ADULT BMI: https://www.[employer]/healthyweight/as sessing/bmi/adult_ bmi/english_bmi_ca lculator/bmi_calcu lator.html DIETARY GUIDELINES: https://www.dietInnoPath Software.gov/si natalya/default/files/ 2020-04/Dietary_Gu idelines_for_Ameri -... 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 09/10/2024 Fatigue (ICD-10 - R53.83) 07/23/2024 NAFL (nonalcoholic fatty liver) (ICD-10 - K76.0) 07/06/2024 Nidia infection (ICD-10 - B37.9) 06/15/2024 Cervical paraspinal muscle spasm (ICD-10 - M62.838) 06/02/2024 Arm numbness (ICD-10 - R20.0) 02/07/2024 Dietary counseling (ICD-10 - Z71.3) The following information is provided to help patients understand the role BMI, nutrition, and physical activity play in a patient's overall health. Please review the information available in these links. ADULT BMI: https://www.[employer]/healthyweight/as sessing/bmi/adult_ bmi/english_bmi_ca lculator/bmi_calcu lator.html DIETARY GUIDELINES: https://www.dietInnoPath Software.gov/si natalya/default/files/ 2020-04/Dietary_Gu idelines_for_Ameri -... PHYSICAL ACTIVITIES GUIDELINES: https://www.[employer]/healthyweight/ph ysical_activity/in dex.html 03/30/2024 Iron deficiency anemia (ICD-10 - D50.9) 01/03/2024 Nausea & vomiting (ICD-10 - R11.2) Encourage fluids especially water or Propel. Will give phenergan for nausea. Her is here to drive her. Avoid greasy foods, milk. Monitor closely and follow up if persistent symptoms. Discussed when to RTC or go to ER 12/30/2023 Seizure-like activity (ICD-10 - R56.9) Keep upcoming appt with Neurology - call [facility] - and ask to be placed on cancellation list. I am not sure patient is having seizures, no postictal phase. Patient needs an EEG. Patient has h/o seizures, not on any medications and denies having any seizures for several years. 12/30/2023 Lethargic (ICD-10 - R53.83) 01/03/2024 Hypothyroidism (ICD-10 - E03.9) Advised to start thyroid medication, we have ruled out that the medication is not causing the syncopal episodes. States she did not know if she should restart or now and did not contact office to inquire about this. 06/02/2024 Hypothyroidism (ICD-10 - E03.9) Will reduce dose of medication, advised patient to set alarm on her phone to remind her to take medication everyday. Then, will recheck lab in 3 months. 02/07/2024 Foot pain, right (ICD-10 - M79.671) Will request ED records, patient did get xrays while in ED. Will treat with antiinflammatories . wear arch supports. when sitting roll frozen water bottle on bottom of foot Rest. Do not walk around bare footed. Plantar fasciitis is aggravated by tight muscles in your feet and calves. Stretching your calves and plantar fascia is the most effective way to relieve the pain that comes with this condition. Shoes with thick soles and extra cushioning can reduce pain with standing and walking. Soft silicone heel pads are inexpensive and work by elevating and cushioning your heel. Soft heel pads can provide extra support. 07/06/2024 Major depressive disorder, recurrent severe without psychotic features (ICD-10 - F33.2) DEPRESSION: Patient to take medication as prescribed. Educated patient on not stopping medication abruptly and to call for refill at least 5 days in advance of running out. Encouraged to see Behavioral Health Counselor (BHC) for symptoms. Reviewed with patient potential for side effects with starting or changing dose of the medication including side effects that may occur. Discussed that if these side effects persists or cause interference with normal activities, the patient should notify the clinic. Discussed with the patient the potential for worsening of mood symptoms prior to improvement. Recommended that if the patient has any feelings of harm to self or others they should seek medical treatment immediately. If patient notes any difficulty breathing, chest pain, or other significant symptoms, they should seek medical treatment immediately. The patient was encouraged to ensure adequate control methods during treatment with this medication due to these medications having a possibility to restrict growth. 07/23/2024 Muscle spasms of neck (ICD-10 - M62.838) 08/13/2024 Bipolar 2 disorder (ICD-10 - F31.81) 09/29/2024 Vomiting (ICD-10 - R11.10) If symptoms worsen or persist, go to nearest ED for evaluation 12/06/2023 Iron deficiency anemia (ICD-10 - D50.9) Discussed with patient including taking Iron with food to prevent gastric upset. Encouraged to take medication with a glass of orange juice because Vitamin C enhances absorption. Encouraged to increase iron foods in diet including dry beans, meat (liver), fortified cereal, and green leafy vegetables. Recommended to avoid dairy or antacid medications within 2 hours of iron dose. Increased water and dietary fiber intake to help prevent constipation. RTC in 3 months to recheck Iron levels or sooner if needed. 04/10/2024 Cough (ICD-10 - R05.9) 09/10/2024 NAFL (nonalcoholic fatty liver) (ICD-10 - K76.0) 10/13/2024 Vomiting (ICD-10 - R11.10) 10/23/2024 Helicobacter pylori (H. pylori) (ICD-10 - A04.8) 09/29/2024 Headache (ICD-10 - R51.9) Advised to push fluid replacement once promethazine starts helping symptoms. 10/13/2024 Iron deficiency anemia (ICD-10 - D50.9) 04/10/2024 Nausea (ICD-10 - R11.0) 12/06/2023 Positive depression screening (ICD-10 - Z13.31) Be physically active. Getting 30 minutes of exercise each day is good for your body and your mind. Begin slowly if it is hard for you to get started. If you already exercise, keep it up. Plan something pleasant for yourself every day. Include activities that you have enjoyed in the past. Get enough sleep. Talk to your doctor if you have problems sleeping. Eat a balanced diet. If you do not feel hungry, eat small snacks rather than large meals. Do not drink alcohol, use illegal drugs, or take medicines that your doctor has not prescribed for you. They may interfere with your treatment. Spend time with family and friends. It may help to speak openly about your depression with people you trust. Refuses referral and/or starting medication at this time. 09/10/2024 Memory difficulties (ICD-10 - R41.3) 08/13/2024 Major depressive disorder, recurrent severe without psychotic features (ICD-10 - F33.2) Keep all appt with psych at this time. Crisis Line # , call any time day or night if you feel like you need to talk with someone or if you feel like harming yourself or others. Go to [employer] today. 07/23/2024 Scalp pain (ICD-10 - R51.9) Xray WNL, I suspect tenderness could be from dying hair and contact dermatitis. Advised to use gentle shampoo and conditioner, avoid hair products. 07/06/2024 Suicidal behavior without attempted self-injury (ICD-10 - R45.89) Be physically active. Getting 30 minutes of exercise each day is good for your body and your mind. Begin slowly if it is hard for you to get started. If you already exercise, keep it up. Plan something pleasant for yourself every day. Include activities that you have enjoyed in the past. Get enough sleep. Talk to your doctor if you have problems sleeping. Eat a balanced diet. If you do not feel hungry, eat small snacks rather than large meals. Do not drink alcohol, use illegal drugs, or take medicines that your doctor has not prescribed for you. They may interfere with your treatment. Spend time with family and friends. It may help to speak openly about your depression with people you trust. Take your medicines exactly as prescribed. Call your doctor if you think you are having a problem with your medicine. 06/02/2024 Unspecified convulsions (ICD-10 - R56.9) Added through [facility] 01/03/2024 Iron deficiency anemia (ICD-10 - D50.9) Discussed with patient including taking Iron with food to prevent gastric upset. Encouraged to take medication with a glass of orange juice because Vitamin C enhances absorption. Encouraged to increase iron foods in diet including dry beans, meat (liver), fortified cereal, and green leafy vegetables. Recommended to avoid dairy or antacid medications within 2 hours of iron dose. Increased water and dietary fiber intake to help prevent constipation. RTC in 3 months to recheck Iron levels or sooner if needed. 02/07/2024 Elevated liver enzymes (ICD-10 - R74.8) The more severe form of NAFLD is called non-alcoholic steatohepatitis (ZARAGOZA). ZARAGOZA causes the liver to swell and become damaged. ZARAGOZA tends to develop in people who are overweight or obese, or have diabetes, high cholesterol or high triglycerides. However, some people have ZARAGOZA even if they do not have any risk factors. PREVENTION There are ways to prevent/ reverse ZARAGOZA Maintain a healthy weight Eat a healthy diet Exercise regularly Limit alcohol intake Only take medicines that you need and follow dosing recommendations. 12/30/2023 Syncope (ICD-10 - R55) VSS with episodes, negative for cardiac markers in hospital. CT head normal. Possible Holter outpatient if no findings at ED. Possible levothyroxine AE include seizures and arrhythmias. However patient states she started to feel funny on the day before she started her medication. Discussed that hypothyroidism can cause fatigue and lethargy. She is also anemic which can cause Tiredness: Feeling weak, tired, or lacking energy, even with minor exertion Shortness of breath: Difficulty breathing or an inability to take deep breaths, especially with activity Pale skin: Having pale or yellow skin Headaches: Headaches, especially with activity Dizziness: Feeling lightheaded or dizzy, especially when standing up Heart issues: Rapid heartbeat, irregular heartbeat, or palpitations 01/03/2024 Syncope (ICD-10 - R55) Advised not to drive until etiology of syncope is known and controlled. Hypothyroidism and Anemia can cause symptoms: Tiredness: Feeling weak, tired, or lacking energy, even with minor exertion Shortness of breath: Difficulty breathing or an inability to take deep breaths, especially with activity Pale skin: Having pale or yellow skin Headaches: Headaches, especially with activity Dizziness: Feeling lightheaded or dizzy, especially when standing up Heart issues: Rapid heartbeat, irregular heartbeat, or palpitations 12/30/2023 Iron deficiency anemia (ICD-10 - D50.9) Start medication immediately. 06/02/2024 Gastroesophageal reflux (ICD-10 - K21.9) 07/23/2024 Gastroesophageal reflux (ICD-10 - K21.9) 09/10/2024 History of noncompliance with medical treatment (ICD-10 - Z91.199) 09/29/2024 Lumbago (ICD-10 - M54.50) Handout given on lower back pain. REST: Rest from aggravating activity. Avoid prolonged sitting, driving, bending, heavy lifting and twisting. ICE: Ice applied to the low back for 15 minutes every 1 2 hours is helpful in reducing pain and spasm. Avoid using heat for the first 48 hours of an acute injury. NSAIDs: Your doctor may prescribe anti-inflammatory medication such as aspirin, advil, aleve, ibuprofen or naproxen sodium. EARLY EXERCISE: Gentle exercise for mobility and stretching (especially the muscles of the legs and back) can help decrease the severity, duration and recurrence of low back pain. Try the suggested exercises on the back of this sheet. Do not perform exercises that increase your pain. POSITIONING: Modifying your sleeping position can help ease strain to your low back. Make sure your bed is firm enough to give you adequate support, and use a small pillow for you head. If you sleep on your back, try putting a pillow under your knees. Or if you prefer to sleep side lying, put a pillow between your thighs and if you are side bent, a folded towel under your waistline. Encourage proper lifting technique. Rest and ROM on Lower back with strengthing core exercises as tolerated. If symptoms continue or worsen return to clinic. 09/10/2024 Non compliance w medication regimen (ICD-10 - Z91.148) 07/23/2024 Major depressive disorder, recurrent severe without psychotic features (ICD-10 - F33.2) Managed by [facility] - continue to keep all upcoming appt. Continue current medication regimen at this time. If you have any suicidal or homicidal ideations, go to ED or call 911 immediately. 01/03/2024 Abnormal urinalysis (ICD-10 - R82.90) UA was abnormal in ED, I have called [facility] requesting records. See TE dated 01/03/24. Antibiotics were started. 07/23/2024 Psychogenic nonepileptic seizure (ICD-10 - F44.5) We have not received OV notes from [facility]. Keep all upcoming appt with Neurology, reports good response thus far on Keppra. Denies any recent seizures. Take medication as directed. 09/10/2024 Major depressive disorder, recurrent severe without psychotic features (ICD-10 - F33.2) [facility] is a Medicaid program designed to connect [facility] with behavioral health needs and developmental disabilities to services from their doctors and services in the community. Will place referral for patient 09/10/2024 Bipolar 2 disorder (ICD-10 - F31.81) [facility] is a Medicaid program designed to connect [facility] with behavioral health needs and developmental disabilities to services from their doctors and services in the community. Will place referral for patient 09/10/2024 Personal history of suicidal behavior (ICD-10 - Z91.51) [facility] is a Medicaid program designed to connect [facility] with behavioral health needs and developmental disabilities to services from their doctors and services in the community. Will place referral for patient 09/10/2024 Helicobacter pylori (H. pylori) (ICD-10 - A04.8) 09/10/2024 Cardiomegaly (ICD-10 - I51.7) 08/13/2024 Other I am concerned about patient not having medications for medical conditions, that could lead to seizures or mood changes. Advised to fill medications early and start immediately. States understanding. 12/30/2023 Other When patient wa s about to leave clinic, patient became dizzy in exam. She c/o feeling nauseated and hot. She was laid back on bed and a cold clothe was applied to head. She was still able to answer questions. VSS. Patient started to feel better and advised to go home and rest. Drink plenty of fluids and given work excuse for the day. Advised to go to ED if symptoms occurred again. When was pushing patient in w/c out to waiting room, she became lethargic and was not answering questions. She was brought to the procedure room, vitals at 9:13: 120/78, 100%, HR 77. Episode lasted for approximately 1-2 minutes, then patient was answering questions again. EMS called and patient taken to [facility] ED for eval via ambulance. 07/23/2024 Other Unable to obtai n lab work today, patient advised to hydrate and return later today or tomorrow to get lab drawn. Plan Of Treatment Next Appt Details Provider Name:Vj Campos , 11/17/2024 01:00:00 PM, [address], [place], [phone], Insurance Providers Payer Name Payer Address Payer Phone Subscriber Number Group Number Insured Name Patient Relationship to Insured Coverage Start Date Coverage End Date [facility] [address] [place], [place] [id number] [phone] [id number] 01 Briana Gomez Self - patient is the insured Medications Administered Medication Instructions Date of Administration Dosage Notes dexAMETHasone (LA) 06/15/2024 8 mg dexAMETHasone Sodium Phosphate 06/15/2024 4 mg Promethazine HCl 01/03/2024 25 mg Promethazine HCl 09/10/2024 25 mg Promethazine HCl 09/29/2024 25 mg Ketorolac Tromethamine 01/03/2024 60 mg Ketorolac Tromethamine 09/29/2024 60 mg Medical (General) History Medical History History ICD Code hyperthyroidism fatty liver Partial hysterectomy Surgical History Surgery Date(Month/Year) partial hysterectomy @ [facility] , [facility] 09/2023 x1 @ [place], [place] 2021 tubal ligation @ [place], [place] cholecystectomy @ [place], [place] 2 021 liver biopsy @ [place], [place] ( unknown hos pital) 2019 Hospitalization History Reason Date(Month/Year) Multiple psychiatric hospitalizations childbirth psychiatric eval hospitalization in [place], [place] 05/2023
--- OUTSIDE RECORDS SUMMARY | 2024-11-16 09:31 | XMS_ITS | Patient Health Record ---
Author Organization [facility] Address [address] [place] [address] Care Team Providers Care Welcome Wagon Host/Hostess Name Role Phone Vj Rincon Primary Care Provider Unavail able Judy James Unavailable [phone] Allergies Allergen (clinical drug ingredient) Drug/Non Drug Allergy documented on EMR Reaction Allergy Type Onset Date Status Iodinated contrast media (substance) Iodinated Diagnostic Agents Unknown Drug Allergy Active Shellfish (FN) Shellfish-derived Products Unknown Drug Allergy Active Strawberries Unknown Allergy Active Results Component Value Reference Range Flag Notes Stress Test, Regular-01144 Reviewed date:10/26/2024 11:44:15 AM Interpretation: Performing Lab: Notes/Report: THC Confirmation--[id number] (Not yet reviewed by provider) Interpretation: Performing Lab: Notes/Report: 3407 they are ready for her please 1628 Marijuana Confirmation 362 NA Specimen analysis was performed without chain of custody handling. These results should be used for medical purposes only and not for any legal or employment evaluative purposes. In very rare instances, an extremely high drug concentration may field a negative result for any qualitative drug-screening assay. The potential for false negative results in these rare instances exist for all drug-screening methods. Test was performed at: [facility] [address] [place] [address], [place] [address] Glucometer WBG--37113 (Not y et reviewed by provider) Interpretation: Performing Lab: Notes/Report: Glucometer WBG 127 65-110 MG/DL HI Notify R N~Meter: [id number]~[employer] Laborer: [id number] KARYNA MANDUJANO Glucometer WBG--43360 (Not y et reviewed by provider) Interpretation: Performing Lab: Notes/Report: Glucometer WBG 121 65-110 MG/DL HI Notify R N~Meter: [id number]~[employer] Laborer: [id number] MITA DAN Electrocardiogram (EKG) - 93 000 Reviewed date:10/26/2024 05:00:31 PM Interpretation: Performing Lab: Notes/Report: Reason For Referral Reason Appt 10/26/24 Abn ec ho Diagnosis 1 Abnormal echocardiog cherie (R93.1) Referring Provider First Name Vj Referring Provider Last Name Andres Referring Provider Speciality Nurse Marco Antonio balbuena Referred Organization [facility] Referred Provider Judy James Referred Address [address] [place] [address],[facility],[place],[address], Referred Provider Specialty Cardiology Referral Priority Routine Medications Medication SIG (Take, Route, Frequency, Duration) Notes Start Date End Date Status levETIRAcetam 500 MG Tablet 1 tablet Ora l twice a day; Duration: 30 days Active Levothyroxine Sodium 150 MCG Tablet 1 tablet in the morning on an empty stomach Oral Once a day; Duration: 30 days Active Ozempic (0.25 or 0.5 MG/DOSE) 2 MG/3ML Solution Pen-injector Subcutaneous; Duration: 28 Days Active Sucralfate 1 GM/10ML Suspension 10 mL 1 hour before meals and at bedtime on an empty stomach Orally Four times a day Active Vitron-C 65-125 MG Tablet 1 tablet Orall y Once a day Active Social History Tobacco Use: Social History Observation Description Date Details (start date - stop date) Former Smoker NA - NA Social History Drugs/Alcohol: Social Info Question Answer Notes Alcohol Screen (Audit-C) Did you have a drink containing alcohol in the past year? Yes How often did you have a drink containing alcohol in the past year? Never (0 point) How many drinks did you have on a typical day when you were drinking in the past year? 1 or 2 drinks (0 point) How often did you have 6 or more drinks on one occasion in the past year? Never (0 point) Points 0 Interpretation Negative Caffeine Intake: 2-3 cups per day soda and oc casional coffee Tobacco Use: Social Info Question Answer Notes Tobacco Control (Standard) Tobacco use: Former smoker How long has it been since you last smoked? 5-10 years Additional Details Category Social Info Options Details Drugs/Alcohol: Do you smoke marijuana? De nies Do you drink alcohol? Yes, Socia lly Section Notes: H/o tob quit 4 years ago, et oh occassaionally, negative illicit drugs, lives with and kids, safe, denies h/o abuse, works at correctional facility H/o tob quit 8-9 years ago, etoh occassaionally, negative illicit drugs, lives with and kids, safe, denies h/o abuse, works at correctional facility Problems Problem Type SNOMED Code ICD Code Onset Dates Problem Status W/U Status Risk Notes Problem Type II diabetes mellitus without complication (933321920) Type 2 diabetes mellitus without complications (E11.9) Active confirmed Problem Severe recurrent major depression without psychotic features (29455459) Major depressive disorder, recurrent severe without psychotic features (F33.2) Active confirmed Problem Adjustment disorder with anxiety (38731151) Adjustment disorder with anxiety (F43.22) Active confirmed Problem Adjustment disorder with mixed disturbance of emotions AND conduct (91676093) Adjustment disorder with mixed disturbance of emotions and conduct (F43.25) Active confirmed Problem Borderline personality disorder (56900376) Borderline personality disorder (F60.3) Active confirmed Problem Excessive and frequent menstruation (671344863) Excessive and frequent menstruation with regular cycle (N92.0) Active confirmed Problem Essential hypertension (11519108) Essential hypertension (I10) Active confirmed Problem Dyspnea (774815636) SOB (shortne ss of breath) (R06.02) Active confirmed Problem Cardiomegaly (0291364) LVH (left ventricular hypertrophy) (I51.7) Active confirmed Problem Bipolar 2 disorder (07547830) Bipolar 2 disorder (F31.81) Active confirmed Problem Hypothyroidism (97337379) Hypothyroidism (acquired) (E03.9) Active confirmed Problem Migraine (16759009) Migraine wit hout status migrainosus, not intractable, unspecified migraine type (G43.909) Active confirmed Problem Family history of coronary arteriosclerosis (342849504) Family history of coronary arteriosclerosis (Z82.49) Active confirmed Problem Chest pain (57950530) Chest pain (R07.9) Active confirmed Problem Morbid obesity (219351347) Obesity, morbid, BMI 40.0-49.9 (E66.01) Active confirmed Problem Seizure (86659561) Seizure (R56.9) Active confi rmed Problem Contrast media allergy (161877311) Contrast media allergy (Z91.041) Active confirmed Problem Gastroesophageal reflux disease (212084834) Gastroesophageal reflux disease, unspecified whether esophagitis present (K21.9) Active confirmed Problem Major depression, single episode (92319876) Major depressive episode (F32.9) Active confirmed Problem Chronic pain (14499113) Chronic pain (G89.29) Active confirmed Problem Insomnia (881263374) Insomnia (G47.00) Active confirmed Problem Anxiety (74764403) Anxiety (F41.9) Active confi rmed Problem Severe recurrent major depression with psychotic features (44057941) Major depressive disorder, recurrent, severe with psychotic symptoms (F33.3) Active confirmed Problem Severe recurrent major depression without psychotic features (33752322) Major depressive disorder, recurrent severe without psychotic features (F33.2) Active confirmed Problem Abnormal uterine bleeding (35427759094763) Abnormal uterine bleeding (AUB) (N93.9) Active confirmed Problem Anxiety (47704149) Anxiety (F41.9) Active confi rmed Problem Severe recurrent major depression with psychotic features (59552220) Major depressive disorder, recurrent, severe with psychotic symptoms (F33.3) Active confirmed Vital Signs Heart Rate 73 /min 10/26/2024 Blood pressure diastolic 88 mm Hg 10/26/2024 Oximetry 96 % 10/26/2024 Height-cm 170.18 cm 10/26/2024 Weight-kg 119.3 kg 10/26/2024 Height 67 in 10/26/2024 Blood pressure systolic 142 mm Hg 10/26/2024 Weight 263 lbs 10/26/2024 BMI 41.19 kg/m2 10/26/2024 Encounters Encounter Location Date Provider Diagnosis [facility] [address] [place] [address] 11/04/2024 Judy James [facility] [address] [place] [address] 10/26/2024 Judy James Chest pain R07.9 ; SOB (shortness of breath) R06.02 ; Essential hypertension I10 ; LVH (left ventricular hypertrophy) I51.7 ; Type 2 diabetes mellitus without complications E11.9 ; Seizure R56.9 ; Family history of coronary arteriosclerosis Z82.49 and Contrast media allergy Z91.041 [facility] [address] [place] [id number] 11/09/2024 Judy James Assessments Encounter Date Diagnosis (ICD Code) Assessment Notes Treatment Notes Treatment Clinical Notes Section Notes 10/26/2024 SOB (shortness of breath) (ICD-10 - R06.02) Discussed the finding of echocardiogram EKG office today indication chest pain shortness of breath hypertension type 2 diabetes findings baseline sinus rhythm heart rate of 73 unremarkable EKG 10/26/2024 Chest pain (ICD-10 - R07.9) Patient is a 28-year-old female is here for evaluation of chest pain with exertion concerning for angina. Despite of her young age, she has borderline hypertension and type 2 diabetes. Her baseline EKG is interpretable. She also has a family history of CAD. Therefore it is make sense to obtain treadmill stress test. Otherwise she had echocardiogram from outside back in August 2024 which showed normal ejection fraction with mild LVH. EKG office today indication chest pain shortness of breath hypertension type 2 diabetes findings baseline sinus rhythm heart rate of 73 unremarkable EKG 10/26/2024 Essential hypertension (ICD-10 - I10) Not on the medication Advised the patient to check her blood pressure once a day and bring a log I reviewed vital signs from last office visit there is 2 number was not 140 this time and last time EKG office today indication chest pain shortness of breath hypertension type 2 diabetes findings baseline sinus rhythm heart rate of 73 unremarkable EKG 10/26/2024 LVH (left ventricular hypertrophy) (ICD-10 - I51.7) EKG office today indication chest pain shortness of breath hypertension type 2 diabetes findings baseline sinus rhythm heart rate of 73 unremarkable EKG 10/26/2024 Type 2 diabetes mellitus without complications (ICD-10 - E11.9) EKG office today indication chest pain shortness of breath hypertension type 2 diabetes findings baseline sinus rhythm heart rate of 73 unremarkable EKG 10/26/2024 Seizure (ICD-10 - R56.9) EKG office today indication chest pain shortness of breath hypertension type 2 diabetes findings baseline sinus rhythm heart rate of 73 unremarkable EKG 10/26/2024 Family history of coronary arteriosclerosis (ICD-10 - Z82.49) EKG office today indication chest pain shortness of breath hypertension type 2 diabetes findings baseline sinus rhythm heart rate of 73 unremarkable EKG 10/26/2024 Contrast media allergy (ICD-10 - Z91.041) EKG office today indication chest pain shortness of breath hypertension type 2 diabetes findings baseline sinus rhythm heart rate of 73 unremarkable EKG 10/26/2024 Other Scott, Parish Ford, am scribing for Judy James MD. I, Judy James MD, personally performed the services prescribed in this documentatio n, as scribed by Parish Ford and it is both accurate and complete. EKG office today indication chest pain shortness of breath hypertension type 2 diabetes findings baseline sinus rhythm heart rate of 73 unremarkable EKG Plan Of Treatment Pending Test Test Name Order Date Hepatic Function Panel [id number] 04/20/2020 Glucometer WBG--61201 07/10/2024 Glucometer WBG--19243 07/11/2024 THC Confirmation--[id number] 07/17/2024 Next Appt Details Provider Name:Guanako cabrera, 11/17/2024 10:30:00 AM, [address], [place], [address], Provider Name:Judy shirley, 01/19/2025 08:15:00 AM, [address], [place], [address], Insurance Providers Payer Name Payer Address Payer Phone Subscriber Number Group Number Insured Name Patient Relationship to Insured Coverage Start Date Coverage End Date [employer] [place] [employer] [address] [place] [address] [id number] 01 Briana SÁNCHEZ Self - patient is the insured Medical (General) History Medical History History ICD Code fatty liver hypothyroidism depression Hypothyroid undefined migraine headaches depression fatty liver Diabetes covid vacc. J&[employer] covid+ x2 glasses reflux anxiety Surgical History Surgery Date(Month/Year) Liver biopsy in [place] choleystectomy /BTL partial hysterectomy
--- OUTSIDE RECORDS SUMMARY | 2024-11-16 09:32 | XMS_ITS | Data Portability ---
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 sulfate 325 mg (65 mg iron) tablet 1 tablet daily active Not Available Not Available No t Available esomeprazol e magnesium 40 mg capsule,del ayed release 08/23 completed Not Available Not Available Not Available levothyroxi ne 125 mcg tablet 06/18 completed Not Available Not Available Not Available lansoprazol e 30 mg capsule,del ayed release 08/23 completed Not Available Not Available Not Available levothyroxi ne 150 mcg tablet Take 1 tablet every day by oral route. active Not Available Not Available No t Available perphenazin e 4 mg tablet 02/28 completed Not Available Not Available Not Available sertraline 25 mg tablet 10/19 completed Not Available Not Available Not Available Banophen 25 mg capsule 03/13 completed Not Available Not Available Not Available mupirocin 2 % topical ointment 02/28 completed Not Available Not Available Not Available ibuprofen 600 mg tablet 07/06 completed Not Available Not Available Not Available letrozole 2.5 mg tablet 10/19 completed Not Available Not Available Not Available ondansetron 4 mg disintegrat ing tablet 08/23 completed Not Available Not Available Not Available sertraline 50 mg tablet 02/28 completed Not Available Not Available Not Available doxycycline hyclate 100 mg tablet 08/23 completed Not Available Not Available Not Available lamotrigine 100 mg tablet 1 tablet BID x two weeks then increase to 150mg BID 2022 active Not Available Not Available Not Avai lable metoclopram margaret 10 mg tablet 02/28 completed Not Available Not Available Not Available progesteron e micronized 100 mg capsule Take 1 capsule every day by oral route at bedtime for 12 days. 12/21 completed Not Available Not Available Not Available amoxicillin 500 mg-potassiu m clavulanate 125 mg tablet 06/18 completed Not Available Not Available Not Available hydroxyzine pamoate 25 mg capsule Take 1 capsule every day by oral route as needed. 03/13 completed Not Available Not Available Not Available escitalopra m 10 mg tablet Take 1 tablet every day by oral route. active Not Available Not Available No t Available Sprintec (28) 0.25 mg-0.035 mg tablet Take 1 tablet every day by oral route. 02/28 completed Not Available Not Available Not Available cyclobenzap rine 5 mg tablet Take 1 tablet every day by oral route as needed. 07/06 completed Not Available Not Available Not Available nitrofurant oin monohydrate /macrocryst als 100 mg capsule 02/28 completed Not Available Not Available Not Available doxylamine 10 mg-pyridoxi ne (vit B6) 10 mg tablet,marti yed release 12/21 completed Not Available Not Available Not Available diclofenac 1 % topical gel APPLY 1-2 GRAMS TO THE AFFECTED AREA(S) BY TOPICAL ROUTE 2 TIMES PER DAY as needed 10/19 completed Not Available Not Available Not Available Vitals Date Recorded Body height Body mass index (BMI) Heart rate Oxygen saturation Oxygen saturation in Arterial blood by Pulse oximetry Systolic And Diastolic Provider Name and Address Organization Details Last Updated DateTime 2 167.64 cm 38.4 kg/m2 84 /min 98 % 98 % 130/72 mm[Hg] Tiffanie Vogel [facility] 2 11:22:25 Date Recorded Body weight Provider Name an d Address Organization Details Last Updated DateTime 05/08/2021 360801.584462 g Zoey Valdes [facility] 05/15/2021 16:25:37 Date Recorded Body height Body mass index (BMI) Heart rate Respiratory rate Oxygen saturation Oxygen saturation in Arterial blood by Pulse oximetry Systolic And Diastolic Provider Name and Address Organization Details Last Updated DateTime 2 167.64 cm 37.9 kg/m2 82 /min 18 /min 98 % 98 % 132/68 mm[Hg] Arcadio Fernando [facility] 2 11:20:52 Date Recorded Body weight Provider Name an d Address Organization Details Last Updated DateTime 05/11/2021 489896.73393 g Zoey Valdes [facility] 05/15/2021 16:25:37 Date Recorded Body height Body mass index (BMI) Body weight Heart rate Oxygen saturation Oxygen saturation in Arterial blood by Pulse oximetry Systolic And Diastolic Provider Name and Address Organization Details Last Updated DateTime 3 170.18 cm 40.4 kg/m2 152255. 83 g 80 /min 98 % 98 % 100/60 mm[Hg] Aria Conway [facility] 3 10:43:17 Date Recorded Body height Respiratory rate Body mass index (BMI) Body weight Heart rate Oxygen saturation Oxygen saturation in Arterial blood by Pulse oximetry Systolic And Diastolic Provider Name and Address Organization Details Last Updated DateTime 3 170.18 cm 18 /min 40.6 kg/m2 709572. 42 g 80 /min 96 % 96 % 120/80 mm[Hg] Luz Elena Block [facility] 3 11:07:51 Date Recorded Body height Body mass index (BMI) Body weight Heart rate Oxygen saturation Oxygen saturation in Arterial blood by Pulse oximetry Systolic And Diastolic Provider Name and Address Organization Details Last Updated DateTime 2 167.64 cm 38.6 kg/m2 998855. 68 g 86 /min 97 % 97 % 128/74 mm[Hg] Ml Ramirez [facility] 2 14:22:59 Social History Question Answer Notes LastModified by Organizat ion Details LastModified Time Tobacco Smoking Status Former Smoker Gila melendez [facility] 08/24/2019 11:36:49 What Is Your Level Of Caffeine Consumption? Moderate Information not available 08/24/2019 What Type Of Diet Are You Following? REGULAR [email or web address] Information not available 08/24/2019 Which Illicit Or Recreational Drugs Have You Used? Denies [email or web address] Information not available 08/24/2019 What Is The Highest Grade Or Level Of School You Have Completed Or The Highest Degree You Have Received? ON02715-3 [email or web address] Information not available 06/18/2022 High Number Of Sexual Partners No [email or web address] Information not available 08/24/2019 History Of Inconsistent/no Condom Use Yes [email or web address] Information not available 08/24/2019 What Was The Date Of Your Most Recent Tobacco Screening? 06/18/2022 Information not available 06/18/2022 How Many Children Do You Have? 2 Information not available 08/24/2019 Performs Monthly Self-breast Exam? No [email or web address] Information no t available 08/24/2019 Do You Use Protection During Sex? No [email or web address] Information not available 08/24/2019 What Is Your Relationship Status? [email or web address] Information not available 06/18/2022 Are You Sexually Active? Yes [email or web address] Information not available 08/24/2019 Number Of Sexual Partners 1 [email or web address] Information not available 08/24/2019 How Much Tobacco Do You Smoke? 1 PPD Information not available 08/24/2019 How Many Years Have You Smoked Tobacco? 0 Information not available 08/24/2019 Sex: Unknown Functional Status Question Answer Note LastModified by Organizat ion Details LastModified Time Do you use any illicit or recreational drugs? No [email or web address] Information not available 06/18/2022 What is your level of alcohol consumption? Occasional [email or web address] Information not available 06/18/2022 Do you or have you ever used smokeless tobacco? Never used smokeless tobacco [email or web address] Information not available 08/24/2019 Are you currently employed? 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 Never used electronic cigarettes Information not available 08/24/2019 What is your exercise level? Moderate [email or web address] Information not available 08/24/2019 Mental Status None recorded. Family History Relationship Description Onset Age of this Age Resolved Age Notes LastModified by Organization Details LastModified Time Mother Malignant neoplasm of ovary [email or web address] Not available 2019 11:36:30 Maternal Grandmother Neoplasm of brain [email or web address] Not available 2022 10:44:28 Maternal Grandfather Cerebrovascu lar accident 85 [email or web address] Not available 02/2022 10:44:50 Medical History Condition Response Allergies (Food, seasonal, environmental ) N Anxiety/Depression N Kidney Stones N Cancer-Colon N Drug/Latex Allergies/Reactions N Blood Transfusion N Urinary Incontinence N Heart-Coronary Artery Disease N Dermatologic Disorders N Depression Y Defects or Inherited Disease N Gestational Diabetes N Hematologic disorders N Pelvic/Vaginal Pain N Anesthesia Complications N History of STI N Deep Vein Thrombosis N No Significant Past Medical History N Polycystic ovary syndrome N Anxiety Disorder Y Cancer-Ovarian N Polyps N Infertility Y Congenital Anomalies N Acid Reflux (GERD) N History of abnormal pap N Chlamydia N Overactive Bladder N Genital Warts N Neurologic/Epilepsy N Cancer-Uterine N Endometriosis N [place] Spotted Fever N High Cholesterol N Polycystic Ovarian Syndrome (PCOS) N Liver Disease Irritable Bowel Syndrome N Fibrocystic Breast Disease N Premenstrual Syndrome N Herpes, Genital N Migraines N Kidney or Bladder Problems Y Thyroid Problems N Past Medical History Unknown N Cancer-Breast N Anemia N Gonorrhea N Circulatory Issues N Art (IVF or FET) N Uterine Fibroids N Diabetes N Anticoagulation therapy N Pulmonary (TB, Asthma) N Post- Depression N Hepatitis/Liver Disease Y AIDS/HIV N Trichomonas N Ovarian Cysts Y Asthma N Pelvic Organ Prolapse N Reproductive System Issues N Trauma/Violence N Epilepsy/Seizures Y Bipolar Disorder N Depression/ depression N Hepatitis N Pulmonary Embolism N Aortic Regurgitation N Pre-Eclampsia N Hypertension N Thrombophilias N Gynecological History Statement/Question Response Abnormal Pap Y Flow Moderate Date of Last Mammogram Date of LMP 01/29/2020 Post Menopausal Bleeding On BCP's at Conception? N STIs/STDs N Duration of Flow (days) 4 Current Control Method None Age at First Child 14 Date of Last Colonoscopy Sexually Active? Y Date of Last Pap Smear 08/24/2019 Sexual Problems? N LMP Definite Desired Control Method Unknown Hormone Replacement Therapy N Obstetrics History GPAL:G 10 P 2 1 7 3 Type Value Full Term 2 Spontaneous 7 Premature 1 Living 3 Total 10 Immunizations Vaccine Type Date Status Note Provider Nam e and Address Organization Details Recorded Time Tdap 10/02/2019 completed [place] [facility] 06/18/2022 10:22:07 Past Encounters Encounter ID Performer Location Encounter Start Date Encounter Closed Date Diagnosis/Indication Diagnosis SNOMED-CT Code Diagnosis ICD10 Code Diagnosis IMO Codes Diagnosis Note [id number] Kandice Echeverria MD [address] [place] [address] 08/24/2019 11:22:35 08/24/2019 12:01:31 Gynecologic examination 25009730 Z01.419 -Pelvic exam today-WNL. -Breast exam today-WNL. -Contracep tion-none. Wishes to discuss. -Counseled regarding prevention of STD's. -Last pap approx 3 years ago-pt has had abnormal pap in the past but is unsure of results. Will collect today. -Advised avoidance of tobacco, alcohol, and drugs . -RTC annually Body mass index 40+ - severely obese 254087668 Z68.41 -41.7 Fibrocysti c changes of bilateral breasts 9213026094 3141771 N60.11 N60.12 Contracept ion care management 189320831 Z30.011 -Effective ness, correct use, advantages /disadvant ages reviewed for the following: Combined oral contracept derick (pills/pat ch/ring), Progestero ne-only pills, Depo-Prove ra injection, Nexplanon implant, & IUDs. -Pt wishes for OCPs. Reports hx of smoking but denies hx for the past 3-4 years. -Will send script. -REC back-up contracept ion for 2 wk after starting OCPs. -RTC annually or PRN. Screening for malignant neoplasm of cervix 664651631 Z12.4 Family his tory of breast cancer 928056364 Z80.3 -Pt reports family history of breast and ovarian cancer. -Breast exam today-WNL. -Pt denies mother having genetic testing. Stressed importance of genetic testing and that breast cancer can be genetic. Pt verbalized understand ing. [id number] Kandice Echeverria MD [address] [place] [address] 02/29/2020 10:57:38 02/29/2020 12:09:13 Missed period 37018296 N92.5 -UPT today: neg-Discus sed no evidence of today-Disc ussed common causes of missed cycles; including stress, , thyroid dysfunctio n-due to only a few days late will hold off on lab evaluation -Advised to repeat UPT in 2 wks. Report (+) to clinic.-If no cycle in 2 months to notify clinic and would need cyclic provera Tenderness of breast 552 41878 N64.4 -Breast Exam today WNL. -Denies recent trauma to breast or weight changes. -Discussed rec decreasing caffeine intake, wearing a tight-fitt ing, supportive bra, and incorporat ing stretching daily. -Offered topical gel and tylenol PRN for discomfort . Body mass index 40+ - severely obese 196494399 Z68.41 -41.7-disc ussed obesity can cause irregular cycles-dis cussed need for diet and excercise for cycle regulation and promote ovulation [id number] Kandice Echeverria MD [facility] [place] [address] [place] [address] [place] [address] 06/02/2020 10:14:44 06/02/2020 11:51:37 Investigations for female infertility 491921205 Z31.41 -Pt reports trying to conceive for nearly x2 years w/ same partner. Partner does have children w/ previous partner. Pt does have x2 children and hx of x7 MABs in the past; last child delivered nearly x4 years ago. -Reports intercours e 3-4x weekly. -We discussed the multiple causes of infertilit y including male & female factors. We discussed the basic workup for infertilit y incl: -Semen Analysis (order given) bring partner to next visit. -Day 3 labs incl estradiol and FSH. -Hx thyroid issues-cur rently on levothyrox ine daily. Will draw TSH today. -OTC predictor kits, Day 21 progestero ne. -USG x1 wk after day 21 progestero ne and f/u visit. -HSG (This needs to be done within the first half of a cycle.) if labs and USG are normal. -Considera tion of genetic testing if remaining work-up normal. -Contact clinic w/ day 1 of cycle and will schedule for day 3 (estradiol , FSH, LH) and day 21 labs (progester one only.) Schedule appt for x1 wk f/u visit w/ USG x1 wk following day 21 progestero ne. Body mass index 40+ - severely obese 643331490 Z68.41 -41.5 -REC healthy diet and exercise to cellulose insulation helper in 10% weight loss to increase chance for conception . Irregular periods 824207 07 N92.1 -Discussed the common causes of oligomenor felicita including stress, changes in weight, medication s, thyroid, PCOS, pituitary dysfunctio n, POI and . -Multiple UPTs at home-negat derick per pt. -Reviewed recommende d evaluation with labs. Pelvic exam 08/2019-no rmal. -Patient denies increased hirsutum, UPT negative, denies changes in weight, denies menopausal symptoms. -TSH today; known hypothyroi dism. -Pap smear 08/24/2019 -WNL HPV testing not performed. -Pelvic USG x1 wk following day 21 progestero ne. -Discussed treatment options (depending on the results of evaluation ) including hormonal treatment (OCPs, progestins ), Mirena -Currently trying to conceive. Desires cyclic Provera; script sent. -Contact clinic w/ day 1 of cycle to schedule day 3 and day 21 labs. Hypothyroidism 69696846 E03.9 -Currently taking 100mcg levothyrox ine daily. -TSH w/ free T4 today. [id number] Kandice Echeverria MD [facility] [address] [place] [address] 06/14/2020 10:22:25 06/14/2020 10:58:13 Investigations for female infertility 489847579 Z31.41 -Pt presents for day 3 infertilit y labs only. TSH drawn at previous visit. Pt desires to have day 21 lab drawn at hospital r/t being on a weekend. Order provided to pt today-unab le to order to [place]. [id number] Kandice Echeverria MD The [address] [place] [address] 08/11/2020 09:22:27 08/11/2020 11:30:13 Female infertility associated with anovulation 949329334 N97.0 -FSH 6.6-LH. 3.9-estrad iol. 32-D21 progestero ne: 0.4-USG today suggestive of PCOS. -Labs indicate that she did not ovulate.-D iscussed/r ec letrozole on days 3-7-Advise d to contact clinic with day one of cycle to schedule day 21 lab. If no cycle rec taking UPT at home. -REC continuing cyclic provera. Polycystic ovary syndrome [id number] E28.2 -US c/w PCOS with anovulatio n, obesity, and hirutisim- discussed infertilit y is common with PCOS Body mass index 40+ - severely obese 930753216 Z68.41 -40.5 -REC healthy diet and exercise to cellulose insulation helper in 10% weight loss to increase chance for conception . [id number] Kandice Echeverria MD [facility] [place] [address] [place] [address] 09/02/2020 09:33:11 09/02/2020 11:16:38 Female infertility associated with anovulation 701822636 N97.0 Presents for NOV for 21 day progestero ne. -- Mary Jane Bains RN [id number] Kandice Echeverria MD [place] [address] [place] [address] 09/21/2020 10:09:46 09/21/2020 12:40:15 Pain in pelvis 89916159 R10.2 -Discussed USG today NEGATIVE, no IUP. Will repeat in 2 wks.-Quant 200 in ER-Will repeat Quant today.-If Quant increases will send Progestero ne 100 mg vaginally each night at bedtime. Urine preg rasta test positive 945550469 Z32.01 -UPT (+) today in clinic.-Di scussed PNV, patient cannot have folic acid. Will discuss with lab results. Nausea 495720034 R11.0 -Discussed OTC medication s. If symptoms worsens advised to contact clinic. Recurrent miscarriage 10 5304335 N96 -pt reports hx of 7 SABs-will start vaginal progestero ne [id number] Kandice Echeverria MD [place] [address] [place] [address] 09/29/2020 10:19:44 09/29/2020 11:53:34 screening 065891978 Z36.9 Nausea 321179645 R11.0 -Pt has tried b6 OTC w/ mild improvemen t-Declines need for script today; she may call if she wants phenergan ultrasound confirms intrauterine 373170689 Z33.1 -Intrauter ine gestationa l sac visualized today on USG; advised ruled out ectopic - Advised pain could be r/t vaginal progestero ne use r/t hx of recurrent MAB-Discus sed that USG today still didn't show cardiac activity, most likely early - Per pt beta hCG in ER earlier this week 3000+; rising appropriat star from original draw in office-RTC x2 wks for NOB visit w/ dating scan Pain in pelvis 17015753 R10.2 -Discussed USG today with IUP;-Quant 200 in ER--> 992--> 3000+-on Vaginal progestero ne 100 mg daily-US r/o ectopic [id number] Kandice Echeverria MD The [address] [place] [address] 10/19/2020 13:34:26 10/19/2020 15:58:41 screening 117902717 Z36.9 High risk 4720 0007 O09.891 -dating scan today-OB panel-pap smear up to date & in chart-new OB packet given Maternal o besity complicating , childbirth and the puerperium, antepartum 6025094847 07 O99.211 -early GCT-growth scan Q4wks starting at 24 wks-NSTs wkly starting @ 36 wks Gestation period, 7 weeks 78765746 Z3A.01 Endocrine, nutritional and metabolic disease complicating , childbirth and puerperium 754908919 O99.281 -TSH and free T4 today. Recurrent miscarriage 10 4972916 N96 -pt reports hx of 7 SABs-will start vaginal progestero ne [id number] Khushi Smith APRN The [address], [facility] [address] [place] [address] 11/01/2020 13:54:07 11/01/2020 15:55:06 screening 959435489 Z36.9 High risk 4720 0007 O09.891 Maternal o besity complicating , childbirth and the puerperium, antepartum 8250561284 07 O99.211 -early GCT-growth scan Q4wks starting at 24 wks-NSTs wkly starting @ 36 wks Endocrine, nutritional and metabolic disease complicating , childbirth and puerperium 493695385 O99.281 -TSH and free T4 today. Recurrent miscarriage 10 4184929 N96 -pt reports hx of 7 SABs-will start vaginal progestero ne Gestation period, 10 weeks 00372673 Z3A.10 Hyperemesi s gravidarum 13018869 O21.0 -Pt. currently taking Phenergan in alteration w/ Zofran-Pt. unable to take PNV at 10wga d/t increased N/V/ weight loss [id number] Kandice Echeverria MD [address] [place] [address] 11/16/2020 09:47:04 11/16/2020 11:38:52 High risk 76725138 O09.891 - complicate d by hyperemesi s- Maternal o besity complicating , childbirth and the puerperium, antepartum 1468153955 07 O99.211 -early GCT--unabl e to tolerate today-grow th scan Q4wks starting at 24 wks-NSTs wkly starting @ 36 wks Endocrine, nutritional and metabolic disease complicating , childbirth and puerperium 627865479 O99.281 Recurrent miscarriage 10 2885752 N96 -pt reports hx of 7 SABs-start vaginal progestero ne Gestation period, 13 weeks 31982120 Z3A.13 Hyperemesi s gravidarum 27347810 O21.0 -states unable to tolerate anything for days to weeks -chary ing zofran and phenergan without any improvemen t-multiple ER visits-miladys l send to L&D today for IV steroids [id number] Kandice Echeverria MD The [address] [place] [address] 11/23/2020 10:22:07 11/23/2020 10:59:20 High risk 47709937 O09.892 - complicate d by hyperemesi s-Hx of Pre-E Maternal o besity complicating , childbirth and the puerperium, antepartum 5749707362 07 O99.212 -early GCT--unabl e to tolerate-g rowth scan Q4wks starting at 24 wks-NSTs wkly starting @ 36 wks Endocrine, nutritional and metabolic disease complicating , childbirth and puerperium 893388775 O99.282 Recurrent miscarriage 10 9133512 N96 -pt reports hx of 7 SABs-start vaginal progestero ne Hyperemesi s gravidarum 78532140 O21.0 -states started throwing up again 3 days ago-taking zofran, compazine suppositor ies, meclinzine -completed IV steroids and steroid taper-mult iple ER visits-miladys heck Gestation period, 14 weeks 75476373 Z3A.14 Past pregn maci history of pre-eclampsia 0824367278 15845 Z87.59 Headache 05340992 R51.9 -BELTRÁN x 3 days-will send to L&D for hydration, compazine, benadryl [id number] Kandice Echeverria MD The [address] [place] [address] 12/21/2020 11:09:49 12/21/2020 12:09:15 High risk 12552687 O09.892 - complicate d by hyperemesi s-Hx of Pre-E Maternal o besity complicating , childbirth and the puerperium, antepartum 9242466040 07 O99.212 -early GCT--unabl e to tolerate-g rowth scan Q4wks starting at 24 wks-NSTs wkly starting @ 36 wks Endocrine, nutritional and metabolic disease complicating , childbirth and puerperium 420954276 O99.282 -tsh today; denies medication s at this time. Recurrent miscarriage 10 2866725 N96 -pt reports hx of 7 SABs- vaginal progestero ne through 12 weeks Hyperemesi s gravidarum 65054397 O21.0 Past pregn maci history of pre-eclampsia [id number] 46523 Z87.59 Gestation period, 18 weeks 47422577 Z3A.18 [id number] Khushi Smith APRN The [address] [place] [address] 01/03/2021 14:15:16 01/03/2021 15:56:21 Gestation period, 19 weeks 45008983 Z3A.19 High risk 4720 0007 O09.892 - complicate d by hyperemesi s-Hx of Pre-E Maternal o besity complicating , childbirth and the puerperium, antepartum 5121643631 07 O99.212 -early GCT--unabl e to tolerate-g rowth scan Q4wks starting at 24 wks-NSTs wkly starting @ 36 wks Endocrine, nutritional and metabolic disease complicating , childbirth and puerperium 013481603 O99.282 -tsh today; denies medication s at this time. Recurrent miscarriage 10 3707761 N96 -pt reports hx of 7 SABs- vaginal progestero ne through 12 weeks Hyperemesi s gravidarum 89041398 O21.0 -Pt. currently taking Phenergan in alteration w/ Zofran-Pt. unable to take PNV at 10wga d/t increased N/V/ weight loss Past pregn maci history of pre-eclampsia [id number] 36000 Z87.59 [id number] Kandice Echeverria MD [facility] [address] [place] [address] [address] [place] [address] 01/16/2021 10:37:34 01/16/2021 11:34:23 High risk 60254621 O09.892 - complicate d by hyperemesi s-Hx of Pre-E Maternal o besity complicating , childbirth and the puerperium, antepartum 2730086197 07 O99.212 -early GCT--unabl e to tolerate-g rowth scan Q4wks starting at 24 wks-NSTs wkly starting @ 36 wks Endocrine, nutritional and metabolic disease complicating , childbirth and puerperium 492470242 O99.282 -on Levothyrox ine 100 mcg daily-stop ped for time d/t n/v-Last TSH elevated encourage to restart: TSH 6.25 on 12/21 Recurrent miscarriage 10 3956030 N96 -pt reports hx of 7 SABs- vaginal progestero ne through 12 weeks Hyperemesi s gravidarum 31288172 O21.0 -Pt. currently taking Phenergan, Zofran-Pt. unable to take PNV at 10wga d/t increased N/V/ weight loss-rpt with normal growth, EFW 88% and 2lb weight gain since last visit-disc ussed small meals and drinking small amount of water more frequently instead of drinking/e ating large amount once a day Past pregn maci history of pre-eclampsia [id number] 92382 Z87.59 Gestation period, 21 weeks 14340345 Z3A.21 screening 2437 68988 Z36.9 Pain in ro und ligament in [id number] 1822710 O26.341 [id number] Kandice Echeverria MD [facility] [place] [address] [place] [address] 02/01/2021 11:38:15 02/01/2021 12:30:19 High risk 77473960 O09.892 - complicate d by hyperemesi s, Hx of Pre-E, hypothyroi dism Maternal o besity complicating , childbirth and the puerperium, antepartum 8818851350 07 O99.212 -early GCT--unabl e to tolerate-g rowth scan Q4wks starting at 24 wks Endocrine, nutritional and metabolic disease complicating , childbirth and puerperium 231919883 O99.282 -on Levothyrox ine 100 mcg daily-stop ped for time d/t n/v-Last TSH elevated encourage to restart: TSH 6.25 on 12/21-weekl y NSTs at 32 wks Recurrent miscarriage 10 9444256 N96 -pt reports hx of 7 SABs- vaginal progestero ne through 12 weeks Hyperemesi s gravidarum 46248230 O21.0 -Pt. currently taking Phenergan, Zofran-Pt. unable to take PNV at 10wga d/t increased N/V/ weight loss-rpt with normal growth, EFW 88% and 2lb weight gain since last visit-24 weeks patient reports n/v has resolved Past pregn maci history of pre-eclampsia 1027811311 01535 Z87.59 Gestation period, 24 weeks 513288456 Z3A.24 [id number] Kandice Echeverria MD [facility] [address] [place] [address] 02/20/2021 14:27:46 02/20/2021 15:12:48 High risk 00633888 O09.892 - complicate d by hyperemesi s, Hx of Pre-E, hypothyroi dism Maternal o besity complicating , childbirth and the puerperium, antepartum 3876153939 07 O99.212 -early GCT--unabl e to tolerate- 1 hr 160; has 3 hours scheduled- growth scan Q4wks starting at 24 wks Endocrine, nutritional and metabolic disease complicating , childbirth and puerperium 742800278 O99.282 -on Levothyrox ine 100 mcg daily-stop ped for time d/t n/v-Last TSH elevated encourage to restart: TSH 6.25 on 12/21-weekl y NSTs at 32 wks Recurrent miscarriage 10 5704636 N96 -pt reports hx of 7 SABs- vaginal progestero ne through 12 weeks Hyperemesi s gravidarum 57894348 O21.0 -Pt. currently taking Phenergan, Zofran-Pt. unable to take PNV at 10wga d/t increased N/V/ weight loss-rpt with normal growth, EFW 88% and 2lb weight gain since last visit-24 weeks patient reports n/v has resolved Past pregn maci history of pre-eclampsia [id number] 10111 Z87.59 Gestation period, 26 weeks 76112507 Z3A.26 [id number] Kandice Echeverria MD [facility] [place] [address] [place] [address] 02/22/2021 09:01:16 02/22/2021 13:21:41 Impaired glucose tolerance 4847210 R73.02 NVO for GTT [id number] Kandice Echeverria MD [address] [place] [address] 02/27/2021 11:47:20 02/27/2021 12:26:36 High risk 87008528 O09.892 - complicate d by hyperemesi s, Hx of Pre-E, hypothyroi dism Maternal o besity complicating , childbirth and the puerperium, antepartum 5004497340 07 O99.212 -early GCT--unabl e to tolerate- 1 hr 160; has 3 hours scheduled- growth scan Q4wks starting at 24 wks Endocrine, nutritional and metabolic disease complicating , childbirth and puerperium O99.282 -on Levothyrox ine 100 mcg daily-stop ped for time d/t n/v-Last TSH elevated encourage to restart: TSH 6.25 on 12/21-weekl y NSTs at 32 wks Recurrent miscarriage 10 6685229 N96 -pt reports hx of 7 SABs- vaginal progestero ne through 12 weeks Hyperemesi s gravidarum 55725986 O21.0 -Pt. currently taking Phenergan, Zofran-Pt. unable to take PNV at 10wga d/t increased N/V/ weight loss-rpt with normal growth, EFW 88% and 2lb weight gain since last visit-24 weeks patient reports n/v has resolved Past pregn maci history of pre-eclampsia 9663375759 21451 Z87.59 Gestation period, 27 weeks 66966269 Z3A.27 Elevated blood-pressure reading without diagnosis of hypertension 815349741 R03.0 -BP elevated today-hx of PreE-will send to L&d for r/o PreE [id number] Kandice Echeverria MD [facility] [address] [place] [address] [place] [address] 03/02/2021 10:40:50 03/02/2021 12:24:15 High risk 59139048 O09.893 - complicate d by hyperemesi s, Hx of Pre-E, hypothyroi dism, PIH Maternal o besity complicating , childbirth and the puerperium, antepartum 1615998476 07 O99.213 -early GCT--unabl e to tolerate- 1 hr 160; unable to tolerate 3 hour; panel BS with glucometer -growth scan Endocrine, nutritional and metabolic disease complicating , childbirth and puerperium O99.283 -on Levothyrox ine 100 mcg daily-stop ped for time d/t n/v-Last TSH elevated encourage to restart: TSH 6.25 on 12/21 Hyperemesi s gravidarum 71485651 O21.0 -Pt. currently taking Phenergan, Zofran-Pt. unable to take PNV at 10wga d/t increased N/V/ weight loss-rpt with normal growth, EFW 88% and 2lb weight gain since last visit-24 weeks patient reports n/v has resolved Past pregn maci history of pre-eclampsia 8539392483 53122 Z87.59 Gestation period, 28 weeks 98815567 Z3A.28 - induced hypertension 62307461 O13.3 -BP 140s in clinic at 27 weeks; prolonged monitoring at hospital with continued elevated BPs; Dx with PIH-24 hr protein 123 at 27 wks-weekly NSTs Impaired g lucose tolerance 1068303 R73.02 unable to complete GCT d/t nausea and vomiting [id number] Kandice Echeverria MD [facility] [address] [place] [address] 03/06/2021 14:04:43 03/06/2021 15:13:32 High risk 63600628 O09.893 - complicate d by hyperemesi s, Hx of Pre-E, hypothyroi dism, PIH Maternal o besity complicating , childbirth and the puerperium, antepartum 1283206134 07 O99.213 -early GCT--unabl e to tolerate- 1 hr 160; unable to tolerate 3 hour; panel BS with glucometer -growth scan Endocrine, nutritional and metabolic disease complicating , childbirth and puerperium 863804183 O99.283 -on Levothyrox ine 100 mcg daily-stop ped for time d/t n/v-Last TSH elevated encourage to restart: TSH 6.25 on 12/21 Hyperemesi s gravidarum 94762850 O21.0 -Pt. currently taking Phenergan, Zofran-Pt. unable to take PNV at 10wga d/t increased N/V/ weight loss-rpt with normal growth, EFW 88% and 2lb weight gain since last visit-24 weeks patient reports n/v has resolved Past pregn maci history of pre-eclampsia 6550567460 00259 Z87.59 Gestation period, 28 weeks 33949615 Z3A.28 - induced hypertension 59001727 O13.3 -BP 140s in clinic at 27 weeks; prolonged monitoring at hospital with continued elevated BPs; Dx with PIH-24 hr protein 123 at 27 wks-weekly NSTs till 32 weeks; then 2x/wk Headache 40492869 R51.9 Insomnia 363455666 G47.0 9 [id number] Kandice Echeverria MD [facility] [address] [place] [address] [address] [place] [place] [address] 03/13/2021 09:50:04 03/13/2021 10:36:11 High risk 80345670 O09.893 - complicate d by hyperemesi s, Hx of Pre-E, hypothyroi dism, PIH Maternal o besity complicating , childbirth and the puerperium, antepartum 1110669677 07 O99.213 -early GCT--unabl e to tolerate- 1 hr 160; unable to tolerate 3 hour; panel BS with glucometer Endocrine, nutritional and metabolic disease complicating , childbirth and puerperium 930373310 O99.283 -on Levothyrox ine 100 mcg daily-stop ped for time d/t n/v-TSH on 03/02/2021 4.31-Plan to report TSH around wk 32 Hyperemesi s gravidarum 36837602 O21.0 -Pt. currently taking Phenergan, Zofran-Pt. unable to take PNV at 10wga d/t increased N/V/ weight loss-madisyn l growth @ 28wks (1519 grams, 96%)-24 weeks patient reports n/v has resolved - induced hypertension 33593771 O13.3 -BP 140s in clinic at 27 weeks; prolonged monitoring at hospital with continued elevated BPs; Dx with PIH-24 hr protein 123 at 27 wks-weekly NSTs till 32 weeks; then 2x/wk Gestation period, 29 weeks 21383811 Z3A.29 Seizure disorder 6365250 02 G40.909 -reports was on lamictal and keppra prior to - last seizure 1 1/2 years ago-will attempt to get re-establi shed with neurology Impaired g lucose tolerance 3031959 R73.02 O99.810 -Will send order to [facility] per patient request.-F ingerstick today [id number] Kandice Echeverria MD [facility] [address], [facility] [address] [place] [address] 03/20/2021 09:28:04 03/20/2021 10:56:53 High risk 96926404 O09.893 - complicate d by hyperemesi s, Hx of Pre-E, hypothyroi dism, PIH Maternal o besity complicating , childbirth and the puerperium, antepartum 0507591518 07 O99.213 -early GCT--unabl e to tolerate- 1 hr 160; unable to tolerate 3 hour; panel BS with glucometer Endocrine, nutritional and metabolic disease complicating , childbirth and puerperium 731920086 O99.283 -on Levothyrox ine 100 mcg daily-stop ped for time d/t n/v-TSH on 03/02/2021 4.31-Plan to report TSH around wk 32 Hyperemesi s gravidarum 96561858 O21.0 -Pt. currently taking Phenergan, Zofran-Pt. unable to take PNV at 10wga d/t increased N/V/ weight loss-madisyn l growth @ 28wks (1519 grams, 96%)-pt has maintained normal weight gain and good growth; however continues to report N/v. Takes zofran daily - induced hypertension 66072748 O13.3 -BP 140s in clinic at 27 weeks; prolonged monitoring at hospital with continued elevated BPs; Dx with PIH-24 hr protein 123 at 27 wks-weekly NSTs till 32 weeks; then 2x/wk Seizure disorder 4336777 02 G40.909 -reports was on lamictal and keppra prior to - last seizure 1 1/2 years ago-Seizur e at 30 weeks-will attempt to get re-establi shed with neurology Gestation period, 30 weeks 52109498 Z3A.30 Glucose to lerance test outside reference range 902740760 R73.09 -failed 1 hr; unable to tolerate 3 hour-state s can not afford testing supplies and insurance will not cover-accu check with each visit-disc ussed risk of GDM and increased risk of if not diagnosed and controlled ; patient understand s [id number] Kandice Echeverria MD [facility] [address] [place] [address], [facility] [address] [place] [address] 03/27/2021 08:54:37 03/27/2021 12:00:47 High risk 02346924 O09.893 - complicate d by hyperemesi s, Hx of Pre-E, hypothyroi dism, PIH Maternal o besity complicating , childbirth and the puerperium, antepartum 2957848160 07 O99.213 -early GCT--unabl e to tolerate- 1 hr 160; unable to tolerate 3 hour; unable to afford glucometer -accu check each visit Endocrine, nutritional and metabolic disease complicating , childbirth and puerperium 099371083 O99.283 -on Levothyrox ine 100 mcg daily-stop ped for time d/t n/v-TSH on 03/02/2021 4.31-Plan to report TSH around wk 32 Hyperemesi s gravidarum 88132596 O21.0 -Pt. currently taking Phenergan, Zofran-Pt. unable to take PNV at 10wga d/t increased N/V/ weight loss-madisyn l growth @ 28wks (1519 grams, 96%)-pt has maintained normal weight gain and good growth; however continues to report N/v. Takes zofran daily - induced hypertension 45328039 O13.3 -BP 140s in clinic at 27 weeks; prolonged monitoring at hospital with continued elevated BPs; Dx with PIH-24 hr protein 123 at 27 wks-weekly NSTs till 32 weeks; then 2x/wk Seizure disorder 7555095 02 G40.909 -reports was on lamictal and keppra prior to - last seizure 1 1/2 years ago-Seizur e at 30 weeks; has had 2 seizures this - restarted Keppra-miladys l attempt to get re-establi shed with neurology Glucose to lerance test outside reference range 299850250 R73.09 -failed 1 hr; unable to tolerate 3 hour-state s can not afford testing supplies and insurance will not cover-accu check with each visit-disc ussed risk of GDM and increased risk of if not diagnosed and controlled ; patient understand s Gestation period, 31 weeks 61291110 Z3A.31 [id number] Kandice Echeverria MD [facility], [facility] [address] [place] [address] 04/12/2021 09:21:27 04/12/2021 10:41:54 High risk 35992257 O09.893 - complicate d by hyperemesi s, Hx of Pre-E, hypothyroi dism, PIH Maternal o besity complicating , childbirth and the puerperium, antepartum 3366320517 07 O99.213 -early GCT--unabl e to tolerate- 1 hr 160; unable to tolerate 3 hour; unable to afford glucometer -accu check each visit Endocrine, nutritional and metabolic disease complicating , childbirth and puerperium 053159705 O99.283 -on Levothyrox ine 100 mcg daily-stop ped for time d/t n/v-TSH on 03/02/2021 4.31-Plan to report TSH around wk 32 Hyperemesi s gravidarum 33662918 O21.0 -Pt. currently taking Phenergan, Zofran-Pt. unable to take PNV at 10wga d/t increased N/V/ weight loss-madisyn l growth @ 28wks (1519 grams, 96%)-pt has maintained normal weight gain and good growth; however continues to report N/v. Takes zofran daily - induced hypertension 29164487 O13.3 -BP 140s in clinic at 27 weeks; prolonged monitoring at hospital with continued elevated BPs; Dx with PIH-24 hr protein 123 at 27 wks-weekly NSTs till 32 weeks; then 2x/wk Seizure disorder 4663421 02 G40.909 -reports was on lamictal and keppra prior to - last seizure 1 1/2 years ago-Seizur e at 30 weeks; has had 2 seizures this - restarted Keppra-miladys l attempt to get re-establi shed with neurology Glucose to lerance test outside reference range 827869881 R73.09 -failed 1 hr; unable to tolerate 3 hour-state s can not afford testing supplies and insurance will not cover-accu check with each visit-disc ussed risk of GDM and increased risk of if not diagnosed and controlled ; patient understand s Gestation period, 34 weeks 29158354 Z3A.34 Heartburn 65853732 R12 [id number] Kandice Echeverria MD [facility] [address] [place] [address] [address] [place] [address] 04/17/2021 09:40:44 04/17/2021 11:05:50 High risk 42919202 O09.893 - complicate d by hyperemesi s, Hx of Pre-E, hypothyroi dism, PIH Maternal o besity complicating , childbirth and the puerperium, antepartum 1486494982 07 O99.213 -early GCT--unabl e to tolerate- 1 hr 160; unable to tolerate 3 hour; unable to afford glucometer -accu check each visit Endocrine, nutritional and metabolic disease complicating , childbirth and puerperium 773412942 O99.283 -on Levothyrox ine 100 mcg daily-stop ped for time d/t n/v-TSH on 03/02/2021 4.31-Plan to report TSH around wk 32 Hyperemesi s gravidarum 71054745 O21.0 -Pt. currently taking Phenergan, Zofran-Pt. unable to take PNV at 10wga d/t increased N/V/ weight loss-madisyn l growth @ 28wks (1519 grams, 96%)-pt has maintained normal weight gain and good growth; however continues to report N/v. Takes zofran daily - induced hypertension 25668977 O13.3 -BP 140s in clinic at 27 weeks; prolonged monitoring at hospital with continued elevated BPs; Dx with PIH-24 hr protein 123 at 27 wks-weekly NSTs till 32 weeks; then 2x/wk Seizure disorder 7030977 02 G40.909 -reports was on lamictal and keppra prior to - last seizure 1 1/2 years ago-Seizur e at 30 weeks; has had 2 seizures this - restarted Keppra-miladys l attempt to get re-establi shed with neurology Glucose to lerance test outside reference range 613440946 R73.09 -failed 1 hr; unable to tolerate 3 hour-state s can not afford testing supplies and insurance will not cover-accu check with each visit-disc ussed risk of GDM and increased risk of if not diagnosed and controlled ; patient understand s Gestation period, 34 weeks 87016969 Z3A.34 Nitrite de tected in urine 323631765 R82.944 [id number] Kandice Echeverria MD [facility] [address] [place] [address] [address] [place] [address] 04/19/2021 14:12:47 04/19/2021 15:46:30 High risk 68295165 O09.893 - complicate d by hyperemesi s, Hx of Pre-E, hypothyroi dism, PIH Maternal o besity complicating , childbirth and the puerperium, antepartum 6709599141 07 O99.213 -early GCT--unabl e to tolerate- 1 hr 160; unable to tolerate 3 hour; unable to afford glucometer -accu check each visit Endocrine, nutritional and metabolic disease complicating , childbirth and puerperium 783969056 O99.283 -on Levothyrox ine 100 mcg daily-stop ped for time d/t n/v-TSH on 03/02/2021 4.31 Hyperemesi s gravidarum 27323836 O21.0 -Pt. currently taking Phenergan, Zofran-Pt. unable to take PNV at 10wga d/t increased N/V/ weight loss-madisyn l growth @ 28wks (1519 grams, 96%)-pt has maintained normal weight gain and good growth; however continues to report N/v. Takes zofran daily - induced hypertension 71425429 O13.3 -BP 140s in clinic at 27 weeks; prolonged monitoring at hospital with continued elevated BPs; Dx with PIH-24 hr protein 123 at 27 wks-weekly NSTs till 32 weeks; then 2x/wk Seizure disorder 4146403 02 G40.909 -reports was on lamictal and keppra prior to - last seizure 1 1/2 years ago-Seizur e at 30 weeks; has had 2 seizures this - restarted Keppra-miladys l attempt to get re-establi shed with neurology Glucose to lerance test outside reference range 792159009 R73.09 -failed 1 hr; unable to tolerate 3 hour-state s can not afford testing supplies and insurance will not cover-accu check with each visit-disc ussed risk of GDM and increased risk of if not diagnosed and controlled ; patient understand s Nitrite de tected in urine 067095266 R82.998 treated an hospital today Gestation period, 35 weeks 45612986 Z3A.35 [id number] Kandice Echeverria MD [facility] [address] [place] [address] [address] [place] [address] 05/01/2021 09:39:54 05/01/2021 10:44:06 High risk 18240994 O09.893 - complicate d by hyperemesi s, Hx of Pre-E, hypothyroi dism, PIH Maternal o besity complicating , childbirth and the puerperium, antepartum 8935686526 07 O99.213 -early GCT--unabl e to tolerate- 1 hr 160; unable to tolerate 3 hour; unable to afford glucometer -accu check each visit Endocrine, nutritional and metabolic disease complicating , childbirth and puerperium 641487476 O99.283 -on Levothyrox ine 100 mcg daily-stop ped for time d/t n/v-TSH on 03/02/2021 4.31 Hyperemesi s gravidarum 85615066 O21.0 -Pt. currently taking Phenergan, Zofran-Pt. unable to take PNV at 10wga d/t increased N/V/ weight loss-madisyn l growth @ 28wks (1519 grams, 96%)-pt has maintained normal weight gain and good growth; however continues to report N/v. Takes zofran daily - induced hypertension 68694711 O13.3 -BP 140s in clinic at 27 weeks; prolonged monitoring at hospital with continued elevated BPs; Dx with PIH-24 hr protein 123 at 27 wks-weekly NSTs till 32 weeks; then 2x/wk Seizure disorder 7585353 02 G40.909 -reports was on lamictal and keppra prior to - last seizure 1 1/2 years ago-Seizur e at 30 weeks; has had 2 seizures this - restarted Keppra-miladys l attempt to get re-establi shed with neurology Glucose to lerance test outside reference range 227199778 R73.09 -failed 1 hr; unable to tolerate 3 hour-state s can not afford testing supplies and insurance will not cover-accu check with each visit-disc ussed risk of GDM and increased risk of if not diagnosed and controlled ; patient understand s Gestation period, 36 weeks 93820408 Z3A.36 [id number] Khushi Smith APRN [facility] [place] [address] 05/08/2021 11:16:35 05/08/2021 11:45:19 state 51097499 Z39.2 -Primary c/s & BTL on 05/04/21-P t is x4 days post-op-Wo uld not REC removal of LIZ today as dressing is not saturated and she is not x7 days out post-op, she will benefit from keeping dressing in place and will help to aid in healing-x3 1cm blisters present in L side groin; advised most likely r/t irritation and friction of skin rubbing together-G auze placed today; additional given to pt to leave in place-RTC on for incision check w/ Dr. Echeverria Dysuria 75966889 R30.0 -Reports burning w/ urination- UA today 3+ blood; will send for culture-Wi ll prophylact ically tx as UTI; will send in Keflex BID x7 days-Tereza s allergies to abx [id number] Kandice Echeverria MD The [address] [place] [address] 05/11/2021 11:14:12 05/11/2021 12:28:49 state 74382256 Z39.2 -Pt presents for 1 wk PP incision check-PECO dressing intact-rem cha. Steri strips removed. Incision cleaned with peroxide. Incision well approximat ed with no drainage/o ara noted. NO s/s of infection noted. Pt tolerated well with minimal discomfort . Instructed to keep dry and contact clinic if s/s of infection appear. Pt verbalized understand ing and had no questions. -Primary C/S & BTL on 05/04/21-P t reports bleeding is controlled -Currently breast/bot tle feeding and denies breast complaints -RTC in 5 wks for PP visit Spasm of back muscles 20 6099575 M62.830 Postoperative visit 6930 30796 Z09 [id number] Kandice Echeverria MD [facility] [address] [facility], [place] [address] [place] [address] 07/06/2021 14:04:40 07/06/2021 15:12:15 state 64583677 Z39.2 Postoperative visit 1836 32671 Z09 Incision healed. Still has some numbness. 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 Amenorrhea 02800320 N91. 2 -discussed need for a cycle every 3 months to preven hyperplasi a or endometria l cancer-Dis cussed cyclic provera to induce a period. If no period in 3 months, take another 10 days of provera. [id number] MD [facility] [address] [facility], [facility] [place] [address] 06/18/2022 10:18:24 06/18/2022 11:22:00 Seizure 92583892 R56.9 - she has renal stones and hence topamax would not be a good choice- wean off Keppra- will do MR brain and EEG- discussed differenti als incl PNES vs Epilepsy- - will start Lamictal 50 mg qday for 2 weeks and then increase to 50 mg bid for 2 weeks and then 100 mg bid Discussed side effects incl rash and stop medication if she notices rash and report to clinic.- she also has anxiety and depression and migraines. So I think Lamictal would be better choice for her.- she has tubal ligation- Educated about seizure precaution s including not operating heavy machinery and not be near boiling liquids, at heights operate saw rotary, be in bath tub alone or not go swimming .- Educated about state driving laws and driving restrictio ns in [facility] for 1 year after an episode of seizure/sy ncope. Patient voiced understand ing of all the instructio ns.Educate d about medication side effects and call clinic if any questions or concerns. Discussed with patient risk factors for breakthrou gh seizure like medication non compliance , sleep deprivatio n etc. Careful when starting any new medication because some medication s lowers seizure threshold. - discussed about sudden unexpected in Epilepsy- educated in detail about teratogeni c side effects of seizure medication s in females and use high dose folic acid and use dual method of control. Discussed interactio n between AED and contracept magalis- will start Folic acid 1 mg qday Headache [id number] R51.9 - start Lamictal- start Imitrex prn- maintain Headache diary- avoid triggers- relaxation techniques like yoga, meditation - Imitrex prn for headaches, take in beginning of headache and not more than two tablets in 24 hours- educated about medication side effects- educated about rebound headaches. patient asked to call clinic if any questions or concerns. - discussed in detail about teratogeni c effects of different migraine medication s including the ones she is on now and use dual method of contracept ion and folic acid. [id number] Ty MD [facility] [address] [facility], [place] [address] 07/05/2022 10:09:09 07/05/2022 11:36:41 Seizure [id number] R56.9 - she has renal stones and hence topamax would not be a good choice- off Keppra- reviewed results of MR brain and EEG, both normal studies. I discussed with her about driver license agent v EEG and discussed possibilit y of PNES. If no resolution of seizures with higher dose of Lamcital will send for eval at [facility].- on Lamictal to 100 mg bid for 2 weeks and then 150 mg bid. Discussed side effects incl rash and stop medication if she notices rash and report to clinic.- she also has anxiety and depression and migraines. So I think Lamictal would be better choice for her.- she has tubal ligation- Educated about seizure precaution s including not operating heavy machinery and not be near boiling liquids, at heights operate saw rotary, be in bath tub alone or not go swimming .- Educated about state driving laws and driving restrictio ns in [facility] for 1 year after an episode of seizure/sy ncope. Patient voiced understand ing of all the instructio ns.Educate d about medication side effects and call clinic if any questions or concerns. Discussed with patient risk factors for breakthrou gh seizure like medication non compliance , sleep deprivatio n etc. Careful when starting any new medication because some medication s lowers seizure threshold. - discussed about sudden unexpected in Epilepsy- educated in detail about teratogeni c side effects of seizure medication s in females and use high dose folic acid and use dual method of control. Discussed interactio n between AED and contracept magalis- on Folic acid 1 mg qday Headache [id number] R51.9 - she still has headache 4 times a week, it lasts 30 mts and Imitrex helps- - will do EKG - will start Pamelor 10 mg qhs - discussed side effects incl sedation, anticholin ergic side effects like dry mouth constipati on etc. - report to clinic with any questions, concerns or medication side effects.- asked to notify if any questions, concerns or medication side effects.- maintain Headache diary- avoid triggers- relaxation techniques like yoga, meditation - Imitrex prn for headaches, take in beginning of headache and not more than two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 last week and did not go to the hospital as recommended r/t not having gas to get there. She has resumed taking her Keppra. Would REC being seen twice weekly r/t PIH and a couple of seizures. No other needs/concerns at this time. PTL precautions and kick counts reviewed w/ pt. RTC next Saturday for YULIANA/NST/SRAVANTHI. Flowsheet Date 04/12/2021 Scott Score Blood Edema Fundus Height Fundus Units Glucose Ketones Leukocytes Nitrite Labor Signs Protein Cervic Dilation Cervic Effacement Cervic Station neg none negative none Negative neg Type Weight in lbs Pre/Post Dialysis Refused Weight 238.498622342731 BP Diastolic BP Location Tested BP Systolic BP Type 64 126 sitting Fetus Heart Rate Present A 138 Present Fetus Movement A Yes Comments Growth scan- AUA 36.4, EFW 6 # 5 oz (2860 grams, 94%), SDP 5.07 cm, Cephalic pres, 138 bpm.Denies VB/ROM. Reports ctx that she can't time and have not changed since 28wks. Reports falling last week and hitting her heads she to the ER in [place]. Pt. also reports being in OB on Saturday for ctx. Denies dilation. Pt. reports UTI at OB, will do culture today (per tyrone) NST for PIH/Maternal obesity reactive. Discussed/offered IOL @ 37 wks. Scheduled 05/03/2021 8pm, pit @ 9pm. Discussed precautions and kick counts. Declined cervical exam today. Rpt TSH next visit Flowsheet Date 04/17/2021 Scott Score Blood Edema Fundus Height Fundus Units Glucose Ketones Leukocytes Nitrite Labor Signs Protein Cervic Dilation Cervic Effacement Cervic Station neg none negative none Positive Nuckolls Ndiaye neg 1cm Type Weight in lbs Pre/Post Dialysis Refused Weight 243.134745077675 BP Diastolic BP Location Tested BP Systolic BP Type 64 128 sitting Fetus Heart Rate Present A 132 Present Fetus Movement A Yes Comments Denies VB/discharge since marlin, states was evaluated in OB and sent home. (+) FM. Occasional ctxPatient reports head going fuzzy and having a hard time breathing and feelings of going to pass out. Last episode on Saturday. Will check pulse ox and BG today. Discussed as baby grows pt. has to work harder to breathe d/t decreased lung capacity in . Discussed while laying on back it can cause SOB d/t vena cava suppression. Pt. desires to come once weekly, discussed rec. for pt. dx would be twice weekly. Discussed kick counts and labor precautions. Pt. reports she does not have the resources to make it here this . Pt. to call on to check on baby. RTC on Saturday with NST, SRAVANTHI, and GBS.NST today d/t PIH, hypothyroidism: reactiveUC collected today due to + NitritesCE: 1.5cm Flowsheet Date 04/19/2021 Scott Score Blood Edema Fundus Height Fundus Units Glucose Ketones Leukocytes Nitrite Labor Signs Protein Cervic Dilation Cervic Effacement Cervic Station trace Uterine Contract ions 2cm 20% -4 Type Weight in lbs Pre/Post Dialysis Refused Weight 239.09506192604 BP Diastolic BP Location Tested BP Systolic BP Type 76 126 sitting Fetus Heart Rate Present A 120 Present Fetus Movement Comments Work-in today for CTX. NST r eassuring but not classically reactive. Contractions q5-6 mins. Sent to L&D for monitoring. Orders called over. Also plan to treat UTI at hospital. Flowsheet Date 05/01/2021 Scott Score Blood Edema Fundus Height Fundus Units Glucose Ketones Leukocytes Nitrite Labor Signs Protein Cervic Dilation Cervic Effacement Cervic Station neg none none negative none Negative none neg 2cm 50 % -3 Type Weight in lbs Pre/Post Dialysis Refused Weight 245.429689625292 BP Diastolic BP Location Tested BP Systolic BP Type 82 136 sitting Fetus Heart Rate Present A 150 Present Fetus Movement A Yes Comments Denies VB/SROM/urinary compl aints. Pt reports mucus like discharge last night. Pt reports (+) FM and ctx off and on. Pt c/o cramping in abdomen that occurs off and on. NST reactive. Discussed labor precautions. Reminded of IOL scheduled 05/03. RTC 3 . Fingerstick today in clinic 80. Flowsheet Date 05/08/2021 Scott Score Blood Edema Fundus Height Fundus Units Glucose Ketones Leukocytes Nitrite Labor Signs Protein Cervic Dilation Cervic Effacement Cervic Station Type Weight in lbs Pre/Post Dialysis Refused Weight 238.765450222634 BP Diastolic BP Location Tested BP Systolic BP Type 72 130 sitting Fetus Heart Rate Present Fetus Movement Comments Flowsheet Date 05/11/2021 Scott Score Blood Edema Fundus Height Fundus Units Glucose Ketones Leukocytes Nitrite Labor Signs Protein Cervic Dilation Cervic Effacement Cervic Station Type Weight in lbs Pre/Post Dialysis Refused Weight 235.445702615136 BP Diastolic BP Location Tested BP Systolic BP Type 68 132 sitting Fetus Heart Rate Present Fetus Movement Comments Menstrual History Last Menstrual Date Menses Monthly On Bcp Conception Prior Menses Frequency Hcg Plus Date Menarche Onset Age 0608/09/2020 Genetic Screening And Infection History Question Response Note Patient's Age Will Be 35 Yea rs Or Older At Estimated Date of Delivery false Thalassemia (Romanian, Spanish, Mediterranean, Or Background): MCV < 80 false Neural Tube Defect (Meningom yelocele, Spina Bifida, Or Anencephaly) false Congenital Heart Defect false Down Syndrome false Calin-Sachs (eg, Christian, Cajun , Kyrgyz-Greenlee) false Donna Disease false Sickle Cell Disease Or Trait () false Hemophilia Or Other Blood Disorders false Muscular Dystrophy false Cystic Fibrosis false Export's Chorea false Mental Retardation/Autism false If Yes, Was Person Tested For Fragile X? false Other Inherited Genetic Or C hromosomal Disorder false Maternal Metabolic Disorder (eg, Type 1 Diabetes, PKU) false Patient Or Baby's Father Had A Child With Defects Not Listed Above false Recurrent Loss, Or A Stillbirth true vaginal progesterone until 12 wks. Medications (including Suppl ements, Vitamins, Herbs, OTC Drugs), Illicit/Recreational Drugs, Alcohol false If Yes, Agent(s) And Strength/Dosage false Any Other Genetic History false Live With Someone With TB Or Exposed To TB false Patient Or Partner Has Histo ry Of Genital Herpes false Rash Or Viral Illness Since Last Menstrual Period false History Of STD, Gonorrhea, C hlamydia, HPV, Syphilis false Other Infection History false Prior GBS-infected child false History of HIV false History of Hepatitis false Hemoglobinopathy Or Carrier false Other Structural Defect false Recent Travel History Outside of Country false Plans and Education First Trimester Discussed Date Discussion Item Discussion Note Discuss ed By Second Trimester Discussed Date Discussion Item Discussion Note Discuss ed By Third Trimester Discussed Date Discussion Item Discussion Note Discuss ed By 05/01/2021 Nicotine Use (tobacco/vaping) 36 weeks De nies tobacco use [email or web address] Delivery Information Delivery Date Delivery Type Labor Anesthesia Weeks Gestation Incision Type Labor Labor Length Hrs Delivered By Post Complications Tubal Sterilization Discharge Date Comments 2 None [facility] 37.1 Low Transvers e false Kandice Pollack true 05/05/2021 PIH; Grant Breech; undesired fertility Discharge Information Feeding Method Contraceptive Method Maternal HG B and HCT Levels Tubal
--- OUTSIDE RECORDS SUMMARY | 2024-11-16 09:32 | XMS_ITS | Clinical Summary ---
Author Organization [facility] Address [address] [place] [id number] Care Team Providers Care Claim Processing Specialist Name Role Phone Idania Wilcox APRN, FREDDY Primary Care Pro vider Fabio Shipley MD Unavailable [phone] Allergies Active Allergy Reactions Criticality Noted Date Comments Iodinated Contrast Media Hives Medium 08/09/2020 Shellfish Derived Hives Low 08/18/2019 [place] Low 08/18/2019 Medications levothyroxine (SYNTHROID) 100 MCG tablet levothyroxine 100 mcg tablet 1 Active ondansetron (ZOFRAN-ODT) 4 MG disint tab Dissolve one tablet (4 mg total) on tongue every 8 (eight) hours as needed for nausea. Active lamoTRIgine (LAMICTAL) 100 MG tablet 3 Active levothyroxine (SYNTHROID) 150 MCG tablet 3 Active SUMAtriptan (IMITREX) 50 MG tablet 3 Active Active Problems Problem Noted Date Diagnosed Date TBI (traumatic brain injury) 03/10/2021 Seizure disorder 03/10/2021 History of pre-eclampsia 03/10/2021 History of delivery 03/10/2021 Depressive disorder 03/10/2021 Social History Tobacco Use Types Packs/Day Years Used Date Smoking Tobacco: Never Smokeless Tobacco: Never Tobacco Cessation:Counseling Given: Not Answered Comments Unknown Sex and Gender Information Value Date Recorded Sex Assigned at Not on file Legal Sex Female 8:53 PM CDT Gender Identity Not on file Sexual Orientation Not on file Last Filed Vital Signs Vital Sign Reading Time Taken Comments Blood Pressure 125/86 07/27/2022 1:45 PM CDT Pulse 81 07/27/2022 1:45 PM CDT Temperature 36.8 C (98.2 F) 07/27/2022 1:45 PM CDT Respiratory Rate 16 03/10/2021 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 Oxygen Saturation 99% 07/27/2022 1:45 PM CDT Inhaled Oxygen Concentration - - Weight 117.8 kg (259 lb 9.6 oz) 07/27/2022 1:45 PM CDT Height 170.2 cm (5' 7 ) 08/09/2020 8:46 AM CDT Body Mass Index 40.66 08/09/2020 8:46 AM CDT Plan of Treatment Health Maintenance Due Date Last Done Comments Anxiety Screening 2001 HIV Screening 2008 Depression Screening 10/28/2011 Hepatitis B Vaccine (1 of 3 - 19+ 3-dose series) 2012 Pap Smear 2014 Cervical Cancer Screening (30-65) 10/28/2023 HPV/Cotest 10/28/2023 COVID-19 Vaccine (1 - 2023-2 5 season) 2024 Influenza Series (#1) 2024 12/18/2017 TDAP/DTaP/TD Vaccines (3 - T d or Tdap) 10/01/2029 10/02/2019, 11/11/1997 Hepatitis C Screening Completed 08/09/2020 Pneumococcal Vaccine 0-50 years Aged Out 05/10/2022 No longer eligible b ased on patient's age to complete this topic Meningococcal B Vaccine Aged Out No l onger eligible based on patient's age to complete this topic Procedures Procedure Name Priority Date/Time Associated Diagnosis Comments HEPATITIS C ANTIBODY Routine 08/09/2020 10:16 AM CDT Fatty liver from Last 3 Months or Most Recently Relevant to Health Maintenance Results * Hepatitis C Virus Antibody (08/09/2020 10:16 AM CDT) Hepatitis C Virus Ab Non-reacti ve Non-reacti ve 08/09/2020 4:10 PM CDT [facility] Serum 08/09/2020 10:1 6 AM CDT 08/09/2020 10:27 AM CDT Narrative [facility] - 08/09/2020 4:10 PM CDT This result was obtained using the Garland Floral Artist immunoassay method, FDA- approved for clinical diagnostic use. This assay should not be used for the screening of sera for the evaluation of potential cell, tissue, and blood donors. Danitza Garcia APRN, CNP LAB BLOOD ORDERABLES Final Result [facility] [address] [place] [address], from Last 3 Months or Most Recently Relevant to Health Maintenance Insurance [place] MEDICAID-NO REFERRAL REQ Advance Directives * Full Code (Latest Code Status on File) Date Activated Date Inactivated Comments 03/10/2021 5:34 PM 03/11/2021 4:33 AM Care Teams Claim Processing Specialist Relationship Specialty Start Date End Date Idania Wilcox APRN, FREDDY [address] [place] [address] PCP - General Nurse Practitioner Family 08/09/20 Fabio Shipley MD [address] [place] [address] PCP - Medicaid 08/09/20
--- OUTSIDE RECORDS SUMMARY | 2024-11-16 09:32 | XMS_ITS | Encounter Summary ---
Author Organization [facility] Address [address] [place] [address] Care Team Providers Care Lacing Presser Name Role Phone Idania Wilcox APRN, CNP Primary Care Pro vider Fabio Shipley MD Unavailable [phone] Reason for Referral * EVAL & TREAT (Routine) - Closed Specialty Diagnoses / Procedures Referred By Mervat drew Referred To Contact Neurology Diagnoses Unspecified convulsions (HCC) Neetu Angelo MD [address] [place] [address] Phone: tel: fax: Neurology Clinic [address] [place] [address] Phone: tel: fax: Referral ID Status Reason Start Date Expiration Date V isits Requested Visits Authorized [id number] Closed Specialty Services Required 07/11/2022 07/12/2023 1 1 Question Answer Additional Detail Epilepsy ? No Encounter Details Date Type Department Care Team (Latest Contact Info) Description 07/11/2022 Order Dot Etcher Apprentice [place] [phone] Neetu Angelo MD [address] [place], [place] [address] Unspecified convulsions (HCC) (Primary Dx) Social History Tobacco Use Types Packs/Day Years Used Date Smoking Tobacco: Never Smokeless Tobacco: Never Comments No Sex and Gender Information Value Date Recorded Sex Assigned at Not on file Legal Sex Female 8:53 PM CDT Gender Identity Not on file Sexual Orientation Not on file documented as of this encounter Plan of Treatment Scheduled Referrals Name Type Priority Associated Diagnoses Order Schedule Ambulatory Referral to Neurology Outpatient Referral Routine Unspecified convulsions (HCC) 1 Occurrences starting 07/11/2022 until 07/12/2023 documented as of this encounter Visit Diagnoses Diagnosis Unspecified convulsions (HCC)- Primary documented in this encounter Care Teams Lacing Presser Relationship Specialty Start Date End Date Idania Wilcox APRN, PROTOTYPE MODEL MAKER [address] [place] [address] PCP - General Nurse Practitioner [facility] 08/09/20 Fabio Shipley MD [address] [place] [address] PCP - Medicaid 08/09/20 documented as of this encounter
[2024-11-16 09:44] VITALS: BP 113/74; PULSE 84; RESP 16; TEMP 36.7; O2SAT 95
--- NOTE | 2024-11-16 09:45 | W.ED.PSYCHS ---
Documented by User: FERNANDA Correa 11/16/24 11:33 HPI - Psych General: Chief Complaint: Psychiatric Symptoms Stated Complaint: mhe Time Seen by Provider: 11/16/24 09:25 Source: patient Mode of arrival: ambulatory Limitations: no limitations History of Present Illness: Patient is a 29-year-old female presents to ED today with a complaint of worsening depression and suicidal ideations. She states she has a history of manic depressive disorder and was admitted to the psychiatric unit in [place] approximately 6 months ago. She states she has not been able to get into a psychiatrist for follow-up due to lengthy appointment waits. She states her primary care provider has refilled her medications a few times but no longer feels comfortable continuing to do this without her seeing a psychiatrist. She states she is now out of her medications and feeling depressed. She does report a suicide attempt via overdose 6 months ago. Patient states she wants to feel better for her two children-ages 3 and 8. She has no specific suicidal plan at this time. MD complaint: suicidal ideation and feels depressed History of same: Yes Relieving factors: medication Exacerbating factors: other (out of medications) Context: not taking psychiatric medications Associated psychiatric symptoms: depression and suicidal ideation Associated symptoms: Reports depression and suicidal ideation; Deny auditory hallucinations, visual hallucinations or homicidal ideation Treatments prior to arrival: none If self harm: admits thoughts of self harm Related Data Home Medications ?Medication ?Instructions ?Recorded ?Confirmed buspirone 5 mg tablet 5 mg PO BID 11/16/24 11/16/24 famotidine 40 mg tablet 40 mg PO DAILY 11/16/24 11/16/24 levetiracetam 500 mg tablet 500 mg PO BID 11/16/24 11/16/24 levothyroxine 150 mcg tablet 150 mcg PO QAM 11/16/24 11/16/24 methocarbamol 500 mg tablet 500 mg PO QID PRN Spasms 11/16/24 11/16/24 semaglutide 0.25 mg or 0.5 mg (2 0.25 mg SUBCUT Q7D 11/16/24 11/16/24 mg/3 mL) subcutaneous pen injector (Ozempic) Allergies Allergy/AdvReac Type Severity Reaction Status Date / Time Iodinated Contrast Media Allergy Intermediate ALGY-Hives Verified 11/15/24 12:16 shellfish derived Allergy Unknown Unknown Verified 01/03/24 12:16 Review of Systems Const: Denies: fever(s) or chills Card: Denies: chest pain, palpitations, lightheadedness or syncope Resp: Denies: dyspnea GI: Denies: abdominal pain, nausea, vomiting or diarrhea Musc: Denies: neck pain, back pain, extremity pain, extremity swelling, joint pain, joint swelling or joint redness Skin/Breast: Denies: rash Neuro: Denies: headache(s), numbness in extremities, weakness in extremities or sensory changes Psych: Reports: depression and suicidal ideation; Denies: irritability, paranoia, visual hallucinations, auditory hallucinations or homicidal ideation PFSH ED PFSH: Medical History Hypothyroidism Social History Smoking and tobacco/nicotine status: former use of tobacco/nicotine Physical Exam Const: COMMON NORMALS: no acute distress, patient oriented x3, no limitations, alert and well nourished GENERAL APPEARANCE: cooperative NUTRITIONAL APPEARANCE: obese ORIENTATION/CONSCIOUSNESS: Yes awake, Yes oriented to person, Yes oriented to place and Yes oriented to time Resp: COMMON NORMALS: normal respiratory effort and clear to auscultation bilaterally AUSCULTATION: clear to auscultation bilaterally Cardio: COMMON NORMALS: regular rate and regular rhythm RATE: regular rate RHYTHM: regular rhythm Neuro: COMMON NORMALS: patient oriented x3, moves all extremities, no focal motor deficits, no sensory deficits noted and gait normal SENSORIUM/ORIENTATION: Yes alert, Yes oriented to person, Yes oriented to place and Yes oriented to time Psych: COMMON NORMALS: mental status grossly normal, Normal thought process present, cooperative, normal affect, speech normal, activity/motor behavior normal, denies hallucinations and denies homicidal ideation APPEARANCE: Yes grossly normal ATTITUDE: Yes calm ACTIVITY/MOTOR BEHAVIOR: Yes appropriate eye contact and No psychomotor agitation SPEECH: Yes normal speech MOOD & AFFECT: Yes euthymic mood THOUGHT PROCESS: Normal thought process present THOUGHT CONTENT: Yes Suicidality present MEMORY/COGNITION: Yes memory grossly intact and Yes cognition grossly intact INSIGHT: Good insight present (Psych) JUDGEMENT: Good judgement present (Psych) Course Consultations: Consultation #1: Dr. Carrera-accepts to NPU Vital Signs: Vital signs: Vital Signs Temperature 98.0 F 11/16/24 09:44 Pulse Rate 84 11/16/24 09:44 Respiratory Rate 16 11/16/24 09:44 Blood Pressure 113/74 11/16/24 09:44 Pulse Oximetry 95 11/16/24 09:44 Oxygen Delivery Me thod Room Air 11/16/24 09:44 MDM - Psych Medical Decision Making Patient will be and admitted to NPU to Dr. Carrera. She is voluntary with affidavit at this time. Lab Data 11/16/24 10:08 11/16/24 10:08 Laboratory Results WBC 6.65 10^3/uL (3.29-11.43) 11/16/24 10:08 RBC 4.92 10^6/uL (3.85-5.65) 11/16/24 10:08 Hgb 12.40 g/dL (11.27-16.99) 11/16/24 10:08 Hct 39.8 % (36-47) 11/16/24 10:08 MCV 80.9 fl (85-98) L 11/16/24 10:08 MCH 25.2 pg (27-33) L 11/16/24 10:08 MCHC 31.2 g/dL (30-55) 11/16/24 10:08 RDW 16.5 % (12.1-15.1) H 11/16/24 10:08 Plt Count 232 10^3/cmm (157-399) 11/16/24 10:08 MPV 11.4 fL (7.4-10.4) H 11/16/24 10:08 Neut % (Auto) 54.4 % 11/16/24 10:08 Lymph % (Auto) 36.7 % 11/16/24 10:08 [place] % (Auto) 6.0 % 11/16/24 10:08 Eos % (Auto) 2.1 % 11/16/24 10:08 Baso % (Auto) 0.5 % 11/16/24 10:08 Neut # (Auto) 3.62 10^3/uL (1.8-7.7) 11/16/24 10:08 Lymph # (Auto) 2.4 10^3/uL (0.8-4.8) 11/16/24 10:08 [place] # (Auto) 0.4 10^3/uL (0.2-0.9) 11/16/24 10:08 Eos # (Auto) 0.1 10^3/uL (0.0-0.8) 11/16/24 10:08 Baso # (Auto) 0.0 10^3/uL (0.0-0.1) 11/16/24 10:08 Nucleated RBC % (auto) 0 % 11/16/24 10:08 Nucleated RBCs # 0.0 /100WBC 11/16/24 10:08 Sodium 139 mmol/L (136-145) 11/16/24 10:08 Potassium 4.1 mmol/L (3.5-5.1) 11/16/24 10:08 Chloride 105 mmol/L (98-107) 11/16/24 10:08 Carbon Dioxide 21 mmol/L (22-29) L 11/16/24 10:08 Anion Gap 17.1 (5-19) 11/16/24 10:08 BUN 10 mg/dL (6-20) 11/16/24 10:08 Creatinine 0.6 mg/dL (0.5-0.9) 11/16/24 10:08 GFR Calculation 116.6 mL/min (90-130) 11/16/24 10:08 Glucose 132 mg/dL (65-115) H 11/16/24 10:08 Calculated Osmolality 289 mOsm/kg (285-295) 11/16/24 10:08 Calcium 9.1 mg/dL (8.5-10.5) 11/16/24 10:08 Total Bilirubin 0.7 mg/dL (0.15-1.2) 11/16/24 10:08 AST 87 U/L (0-32) H 11/16/24 10:08 ALT 132 U/L (0-33) H 11/16/24 10:08 Alkaline Phosphatase 95 U/L (35-105) 11/16/24 10:08 Total Protein 7.5 g/dL (6.6-8.7) 11/16/24 10:08 Albumin 4.3 g/dL (3.5-5.2) 11/16/24 10:08 Globulin 3.2 g/dL (1.3-4.6) 11/16/24 10:08 HCG, Qual Negative (Negative) 11/16/24 10:08 Salicylates < 0.3 mg/dL (3-10) L 11/16/24 10:08 Urine Opiates Screen Negative ng/mL (Negative) 11/16/24 09:54 Acetaminophen < 5.0 ug/mL (10-30) L 11/16/24 10:08 Ur Barbiturates Screen Negative ng/mL (Negative) 11/16/24 09:54 Ur Phencyclidine Scrn Negative ng/mL (Negative) 11/16/24 09:54 Ur Amphetamines Screen Negative ng/mL (Negative) 11/16/24 09:54 U Benzodiazepines Scrn Negative ng/mL (Negative) 11/16/24 09:54 Urine Cocaine Screen Negative ng/mL (Negative) 11/16/24 09:54 U Marijuana (THC) Screen Positive ng/mL (Negative) H 11/16/24 09:54 Ethyl Alcohol < 10 mg/dL (0-10) 11/16/24 10:08 Discharge Plan Discharge Patient Disposition: Admitted As Inpatient Clinical Impression: Suicidal ideation Depression Qualifiers: Depression Type: major depressive disorder Major depression recurrence: recurrent Active/Remission status: currently active Major depression episode severity: unspecified Qualified Code(s): F33.9 - Major depressive disorder, recurrent, unspecified Condition: Stable Coding Level of Care Code ED Roll Weigher for Chg Fwd Documented by User: Vinny Stearns DO 11/16/24 10:15 HPI - Psych General: Chief Complaint: Psychiatric Symptoms Stated Complaint: mhe Time Seen by Provider: 11/16/24 09:25 Related Data Home Medications ?Medication ?Instructions ?Recorded ?Confirmed buspirone 5 mg tablet 5 mg PO BID 11/16/24 11/16/24 famotidine 40 mg tablet 40 mg PO DAILY 11/16/24 11/16/24 levetiracetam 500 mg tablet 500 mg PO BID 11/16/24 11/16/24 levothyroxine 150 mcg tablet 150 mcg PO QAM 11/16/24 11/16/24 methocarbamol 500 mg tablet 500 mg PO QID PRN Spasms 11/16/24 11/16/24 semaglutide 0.25 mg or 0.5 mg (2 0.25 mg SUBCUT Q7D 11/16/24 11/16/24 mg/3 mL) subcutaneous pen injector (Ozempic) Allergies Allergy/AdvReac Type Severity Reaction Status Date / Time Iodinated Contrast Media Allergy Intermediate ALGY-Hives Verified 01/03/24 12:16 shellfish derived Allergy Unknown Unknown Verified 01/03/24 12:16 [facility] ED PFSH: Medical History Hypothyroidism Social History Smoking and tobacco/nicotine status: former use of tobacco/nicotine Course Vital Signs: Vital signs: Vital Signs Temperature 98.0 F 11/16/24 09:44 Pulse Rate 84 11/16/24 09:44 Respiratory Rate 16 11/16/24 09:44 Blood Pressure 113/74 11/16/24 09:44 Pulse Oximetry 95 11/16/24 09:44 Oxygen Delivery Me thod Room Air 11/16/24 09:44 MDM - Psych Medical Decision Making Patient will be and admitted to NPU to Dr. Carrera. She is voluntary with affidavit at this time. Chart reviewed and patient discussed with midlevel. Agree with assessment and plan. Lab Data 11/16/24 10:08 11/16/24 10:08 Laboratory Results WBC 6.65 10^3/uL (3.29-11.43) 11/16/24 10:08 RBC 4.92 10^6/uL (3.85-5.65) 11/16/24 10:08 Hgb 12.40 g/dL (11.27-16.99) 11/16/24 10:08 Hct 39.8 % (36-47) 11/16/24 10:08 MCV 80.9 fl (85-98) L 11/16/24 10:08 MCH 25.2 pg (27-33) L 11/16/24 10:08 MCHC 31.2 g/dL (30-55) 11/16/24 10:08 RDW 16.5 % (12.1-15.1) H 11/16/24 10:08 Plt Count 232 10^3/cmm (157-399) 11/16/24 10:08 MPV 11.4 fL (7.4-10.4) H 11/16/24 10:08 Neut % (Auto) 54.4 % 11/16/24 10:08 Lymph % (Auto) 36.7 % 11/16/24 10:08 Cors[place] % (Auto) 6.0 % 11/16/24 10:08 Eos % (Auto) 2.1 % 11/16/24 10:08 Baso % (Auto) 0.5 % 11/16/24 10:08 Neut # (Auto) 3.62 10^3/uL (1.8-7.7) 11/16/24 10:08 Lymph # (Auto) 2.4 10^3/uL (0.8-4.8) 11/16/24 10:08 [place] # (Auto) 0.4 10^3/uL (0.2-0.9) 11/16/24 10:08 Eos # (Auto) 0.1 10^3/uL (0.0-0.8) 11/16/24 10:08 Baso # (Auto) 0.0 10^3/uL (0.0-0.1) 11/16/24 10:08 Nucleated RBC % (auto) 0 % 11/16/24 10:08 Nucleated RBCs # 0.0 /100WBC 11/16/24 10:08 Sodium 139 mmol/L (136-145) 11/16/24 10:08 Potassium 4.1 mmol/L (3.5-5.1) 11/16/24 10:08 Chloride 105 mmol/L (98-107) 11/16/24 10:08 Carbon Dioxide 21 mmol/L (22-29) L 11/16/24 10:08 Anion Gap 17.1 (5-19) 11/16/24 10:08 BUN 10 mg/dL (6-20) 11/16/24 10:08 Creatinine 0.6 mg/dL (0.5-0.9) 11/16/24 10:08 GFR Calculation 116.6 mL/min (90-130) 11/16/24 10:08 Glucose 132 mg/dL (65-115) H 11/16/24 10:08 Calculated Osmolality 289 mOsm/kg (285-295) 11/16/24 10:08 Calcium 9.1 mg/dL (8.5-10.5) 11/16/24 10:08 Total Bilirubin 0.7 mg/dL (0.15-1.2) 11/16/24 10:08 AST 87 U/L (0-32) H 11/16/24 10:08 ALT 132 U/L (0-33) H 11/16/24 10:08 Alkaline Phosphatase 95 U/L (35-105) 11/16/24 10:08 Total Protein 7.5 g/dL (6.6-8.7) 11/16/24 10:08 Albumin 4.3 g/dL (3.5-5.2) 11/16/24 10:08 Globulin 3.2 g/dL (1.3-4.6) 11/16/24 10:08 HCG, Qual Negative (Negative) 11/16/24 10:08 Salicylates < 0.3 mg/dL (3-10) L 11/16/24 10:08 Urine Opiates Screen Negative ng/mL (Negative) 11/16/24 09:54 Acetaminophen < 5.0 ug/mL (10-30) L 11/16/24 10:08 Ur Barbiturates Screen Negative ng/mL (Negative) 11/16/24 09:54 Ur Phencyclidine Scrn Negative ng/mL (Negative) 11/16/24 09:54 Ur Amphetamines Screen Negative ng/mL (Negative) 11/16/24 09:54 U Benzodiazepines Scrn Negative ng/mL (Negative) 11/16/24 09:54 Urine Cocaine Screen Negative ng/mL (Negative) 11/16/24 09:54 U Marijuana (THC) Screen Positive ng/mL (Negative) H 11/16/24 09:54 Ethyl Alcohol < 10 mg/dL (0-10) 11/16/24 10:08 No radiology studies performed this visit Discharge Plan Discharge Patient Disposition: Admitted As Inpatient Clinical Impression: Suicidal ideation Depression Qualifiers: Depression Type: major depressive disorder Major depression recurrence: recurrent Active/Remission status: currently active Major depression episode severity: unspecified Qualified Code(s): F33.9 - Major depressive disorder, recurrent, unspecified Condition: Stable Coding Level of Care Code ED Roll Weigher for Suri Schilling
--- NOTE | 2024-11-16 10:05 | PC.PHAR ---
Pt states she has not kept any of her daily medications down, in a long time. Does not remember the last time she attempted to take any. Pt is out of Zofran 8mg from 10/26/24. Pt is also diabetic and was switched from Metformin to Ozempic, which she stopped due to side effects. BS running in the 300's, now.
[2024-11-16 10:36] LABS: PCP Screen Urine Negative (Negative)
[2024-11-16 10:42] LABS: Hematocrit 39.8 % (36-47); Hemoglobin 12.40 g/dL (11.27-16.99); Mean Corpuscular HGB Conc 31.2 g/dL (30-55); Mean Corpuscular Hemoglobin 25.2 pg (27-33); Mean Corpuscular Volume 80.9 fl (85-98); Nucleated Red Blood Cells % 0 %; Platelet Count 232 10^3/cmm (157-399); Red Blood Count 4.92 10^6/uL (3.85-5.65); White Blood Count 6.65 10^3/uL (3.29-11.43)
[2024-11-16 11:02] LABS: Alanine Aminotransferase 132 U/L (0-33); Albumin Level 4.3 g/dL (3.5-5.2); Alkaline Phosphatase 95 U/L (35-105); Anion Gap 17.1 (5-19); Aspartate Amino Transferase 87 U/L (0-32); Blood Urea Nitrogen 10 mg/dL (6-20); Calcium 9.1 mg/dL (8.5-10.5); Carbon Dioxide 21 mmol/L (22-29); Chloride 105 mmol/L (98-107); Creatinine Clr Calc Pharmacy 0.5576; Globulin 3.2 g/dL (1.3-4.6); Glucose 132 mg/dL (65-115); HCG, Serum Qual Negative (Negative); Osmolality Calculated 289 mOsm/kg (285-295); Potassium 4.1 mmol/L (3.5-5.1); Sodium 139 mmol/L (136-145); Total Protein 7.5 g/dL (6.6-8.7)
[2024-11-16 11:09] LABS: Acetaminophen < 5.0 ug/mL (10-30); Alcohol Level < 10 mg/dL (0-10); Salicylate < 0.3 mg/dL (3-10)
--- NOTE | 2024-11-16 11:58 | PC.NURSE ---
96 hr rights reviewed with pt @[id number] with assistance of [facility] chief talent officer Brendon. All education reviewed with pt at this time. Pt verbalized understanding to hold parameters. Pt copy left @bedside with pt. Pt declined a snack or drink. No further needs.
[2024-11-16 12:09] VITALS: BP 116/71; PULSE 72; O2SAT 97
[2024-11-16 12:54] VITALS: BP 100/60; PULSE 74; RESP 16; TEMP 36.7; O2SAT 98
[2024-11-16 14:00] VITALS: BP 100/60; PULSE 74; RESP 16; TEMP 36.7; O2SAT 98
[2024-11-16 20:01] VITALS: BP 113/81; PULSE 88; RESP 17; TEMP 36.7; O2SAT 98
[2024-11-17 06:00] VITALS: BP 124/76; PULSE 84; RESP 17; TEMP 36.6; O2SAT 96
--- NOTE | 2024-11-17 07:00 | PC.NURSE ---
Blood glucose 117
--- NOTE | 2024-11-17 11:00 | PC.NURSE ---
Blood glucose 118
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
[2024-11-17 13:13] VITALS: BP 101/52; PULSE 73; RESP 16; TEMP 37; O2SAT 94
[2024-11-17 19:23] VITALS: BP 122/76; PULSE 76; RESP 18; TEMP 36.7; O2SAT 96
[2024-11-18 06:00] VITALS: BP 92/55; PULSE 66; RESP 18; TEMP 36.7; O2SAT 97
[2024-11-18 14:00] VITALS: BP 116/80; PULSE 89; RESP 18; TEMP 37.2; O2SAT 96
--- NOTE | 2024-11-18 14:22 | P.NPUPN_ITS ---
Subjective NPU 2 Subjective: 29-year-old female with PTSD, nonepilept ic seizure disorder and depression admitted with suicidal ideation. The patient had reported that she continued to feel depressed. She had continued to report having flashbacks. She reported some feelings of hopelessness. She had expressed interest in continuing with intensive outpatient psychotherapy particularly targeting PTSD symptoms. She reports having flashbacks and reports avoidance and hypervigilance. She was able to attend groups. She had reported anhedonia still. Mental Status Exam 2 MSE Comments: She the patient is a casually dressed overweight white female who was pleasant and cooperative on interview. There was no evidence of any abnormal involuntary motor movements tics or tremors appreciated. Her speech was normal in regards to rate, rhythm, and prosody. There was the presence of mild psychomotor retardation. Her mood was described as depressed. Her affect was restricted in range and mood congruent. Her thought process is linear, logical, and goal- directed. Her thought content revealed passive suicidal ideation with no active plan. She denied any homicidal ideation. She did not appear to be responding to internal stimuli. There was no evidence of any delusional thinking. She denied any auditory or visual hallucinations. She was alert and oriented to person, place, time, and situation. Her recent and remote memory were grossly intact. Her insight is fair. Her judgment appeared limited. Her impulse control appeared guarded. Vitals/I&O/Wt Last Vital Signs Temp 98.1 F 11/18/24 06:00 Pulse 66 11/18/24 06:00 Resp 18 11/18/24 06:00 BP 92/55 11/18/24 06:00 Pulse Ox 97 11/18/24 06:00 O2 Del Method Room Air 11/18/24 06:00 Data NPU 11/16/24 10:08 11/16/24 10:08 A&P Assessment and plan 1. MDD (major depressive disorder), recurrent severe, without psychosis: 2. Suicidal ideation: 3. Hypothyroidism: Plan: 29-year-old female with an extended history of depression and PTSD currently requesting a medication change with periods of suicidal ideation and previous attempts to overdose. #1. Engage patient in individual milieu and group therapy. #2. TO -15-minute checks #3. Will attempt to gather collateral information #4. Continue Keppra, levothyroxine, famotidine, as prescribed. #5. Increase zoloft to 50 mg daily to target depression. PDMP PDMP Reviewed: Not Reviewed Involuntary Hold Information 2 Hold Status: Legal Status: 96 Hour Hold Date/Time Hold Expires: 11/20/24 @ 10:00 Attestations NPU 2 Medical Necessity Statement*: Inpatient hospitalizations back necessary and team to be the clinically appropriate intervention at this time. We will monitor and initiate medications and make changes as indicated. The patient's likely length of stay is 2-3 days. Coding Level of Care Code Acute Code for Chg Fwd Diagnoses MDD (major depressive disorder), recurrent severe, without psychosis F33.2 Suicidal ideation R45.851 Hypothyroidism E03.9
[2024-11-18 22:00] VITALS: BP 138/72; PULSE 77; RESP 17; TEMP 36.8; O2SAT 97
[2024-11-19 06:00] VITALS: BP 115/75; PULSE 112; RESP 18; TEMP 36.8; O2SAT 96
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
[2024-11-19 13:11] VITALS: BP 115/75; PULSE 112; RESP 18; TEMP 36.8; O2SAT 96
[2024-11-19 14:00] VITALS: BP 111/67; PULSE 82; RESP 16; TEMP 36.8; O2SAT 94
== END 2024-11-19 17:20 | disposition home or self-care (01) | DRG 885 ==
LOC: ER 10:33 → NP 11:37
PROVIDERS: Admitting Provider Psychiatry & Neurology Psychiatry; Emergency Provider Physician Assistant; PCP Nurse Practitioner Family; Visit Provider Psychiatry & Neurology Psychiatry
DX: F33.2 Major depressive disorder, recurrent severe without psychotic features (principal); R45.851 Suicidal ideations; E03.9 Hypothyroidism, unspecified; Z91.51 Personal history of suicidal behavior; Z79.890 Hormone replacement therapy; Z87.891 Personal history of nicotine dependence; E66.3 Overweight; F43.10 Post-traumatic stress disorder, unspecified; G40.909 Epilepsy, unspecified, not intractable, without status epilepticus; Z62.810 Personal history of physical and sexual abuse in childhood; Z62.811 Personal history of psychological abuse in childhood; Z90.49 Acquired absence of other specified parts of digestive tract; Z90.710 Acquired absence of both cervix and uterus; Z81.8 Family history of other mental and behavioral disorders
CPT/HCPCS: 36415; 36416; 80053; 80306; 80307; 82962; 84703; 85025; 96372; 97150; 97165; 99285; J1815; J9999; Q0162

== ENCOUNTER 2025-01-28 11:22 | Emergency (ER) | payer SELFPAY ==
[2025-01-28 11:27] VITALS: BP 148/93; PULSE 76; TEMP 36.7; O2SAT 99
--- NOTE | 2025-01-28 11:33 | US_ITS ---
WS: [id number] ABDOMINAL ULTRASOUND LIMITED REASON FOR VISIT: abd pain TECHNIQUE: Grayscale and Doppler ultrasound examination of the abdomen. FINDINGS: Pancreas: No mass, ductal dilatation, or calcification. Abdominal aorta and IVC: Normal Liver: Liver measures 17.6 cm. Cm in length. Liver has homogeneously significantly increased echogenicity without focal lesion. Gallbladder: Cholecystectomy. Common bile duct 5 mm in diameter normal for postcholecystectomy patient. Right kidney: Right kidney measures 10.7 cm x 5.5 cm 5.3 cm. Right kidney cortex 1 cm.. No mass, calculus, or hydronephrosis. No ascites. US/US gall bladder [id number] IMPRESSION: Hepatomegaly with abnormal liver echotexture which most commonly represents aydee atohepatitis. However, other forms of hepatitis may have the same appearance.
[2025-01-28 12:45] LABS: HCG, Serum Qual Negative (Negative)
[2025-01-28 12:49] LABS: Alanine Aminotransferase 119 U/L (0-33); Albumin Level 4.3 g/dL (3.5-5.2); Alkaline Phosphatase 90 U/L (35-105); Anion Gap 16.6 (5-19); Aspartate Amino Transferase 80 U/L (0-32); Blood Urea Nitrogen 6 mg/dL (6-20); Calcium 9.7 mg/dL (8.5-10.5); Carbon Dioxide 26 mmol/L (22-29); Chloride 103 mmol/L (98-107); Creatinine Clr Calc Pharmacy 150.3261; Globulin 3.0 g/dL (1.3-4.6); Glucose 106 mg/dL (65-115); Lipase 40 U/L (13-60); Osmolality Calculated 292 mOsm/kg (285-295); Potassium 3.6 mmol/L (3.5-5.1); Sodium 142 mmol/L (136-145); Total Protein 7.3 g/dL (6.6-8.7)
[2025-01-28 13:38] LABS: Hematocrit 40.0 % (36-47); Hemoglobin 12.60 g/dL (11.27-16.99); Mean Corpuscular HGB Conc 31.5 g/dL (30-55); Mean Corpuscular Hemoglobin 26.9 pg (27-33); Mean Corpuscular Volume 85.5 fl (85-98); Nucleated Red Blood Cells % 0 %; Platelet Count 225 10^3/cmm (157-399); Red Blood Count 4.68 10^6/uL (3.85-5.65); White Blood Count 4.67 10^3/uL (3.29-11.43)
--- NOTE | 2025-01-28 14:12 | W.ED.ABDPA2 ---
HPI - Abdominal Pain General: Chief Complaint: Abdominal Pain Stated Complaint: n/v, depressed Time Seen by Provider: 01/28/25 13:51 Source: patient Mode of arrival: ambulatory Limitations: no limitations History of Present Illness: Patient is a 29-year-old female presents to ED today with a complaint of chronic nausea and vomiting over the past 6 months. Patient states she cannot hold down any form of food or water. She has been following up with her primary care provider as well as GI at [place]. Just last month she did undergo endoscopy/colonoscopy. She states she has been diagnosed with H. pylori but states she cannot tolerate the medications prescribed to her for this and constantly vomits them up. She states over the past 2 weeks she has had some pain to her right upper quadrant. She reportedly was told to come to the emergency department to see if she has formed a gallstone . Patient is status postcholecystectomy. She states she has a known fatty liver. She has not had any fevers or jaundice. Patient states she has tried multiple antiemetics at home without relief. She states her primary care has talked her about possible promethazine suppositories. No hematemesis. No black or tarry stools. MD elicited complaint: abdominal pain Onset (ago): week(s) Pain Consistency: constant Location: Epigastric and RUQ Severity: moderate Radiation: none Migration to: no migration Exacerbating factors: eating Relieving factors: nothing Associated Symptoms: Reports nausea and vomiting; Denies chills, constipation, diarrhea, dysuria, fever(s), hematochezia, hematuria, hematemesis and melena Related Data Home Medications ?Medication ?Instructions ?Recorded ?Confirmed famotidine 40 mg tablet 40 mg PO DAILY 11/16/24 01/28/25 levetiracetam 500 mg tablet 500 mg PO BID 11/16/24 01/28/25 levothyroxine 150 mcg tablet 150 mcg PO QAM 11/16/24 01/28/25 methocarbamol 500 mg tablet 500 mg PO QID PRN Spasms 11/16/24 01/28/25 ondansetron 8 mg disintegrating 8 mg PO Q6H PRN Nausea And Vomiting 01/28/25 01/28/25 tablet promethazine 25 mg tablet 25 mg PO Q6H PRN Nausea And 01/28/25 01/28/25 Vomiting sulfamethoxazole 800 1 tab PO BID 01/28/25 01/28/25 mg-trimethoprim 160 mg tablet Previous Rx's ?Medication ?Instructions ?Recorded sertraline 50 mg tablet 75 mg (1.5 x 50 mg) PO DAILY 30 11/19/24 days #45 tabs trazodone 50 mg tablet 50 mg PO BEDTIME PRN Sleep 30 days 11/19/24 #30 tabs Allergies Allergy/AdvReac Type Severity Reaction Status Date / Time Iodinated Contrast Media Allergy Intermediate ALGY-Hives Verified 01/28/25 11:32 shellfish derived Allergy Unknown Unknown Verified 01/28/25 11:32 Review of Systems Const: Denies: fever(s), chills, body aches, fatigue or malaise Card: Denies: chest pain Resp: Denies: dyspnea GI: Reports: abdominal pain, nausea and vomiting; Denies: hematemesis, diarrhea, constipation, hematochezia or melena : Denies: flank pain, dysuria or hematuria Musc: Denies: neck pain, back pain, extremity pain, extremity swelling, joint pain, joint swelling or joint redness Skin/Breast: Denies: rash Neuro: Denies: headache(s), numbness in extremities, weakness in extremities, sensory changes or dizziness PFS ED PFSH: Medical History Hypothyroidism Social History Smoking and tobacco/nicotine status: former use of tobacco/nicotine Physical Exam Const: COMMON NORMALS: no acute distress, patient oriented x3, no limitations, alert and well nourished GENERAL APPEARANCE: cooperative NUTRITIONAL APPEARANCE: obese ORIENTATION/CONSCIOUSNESS: Yes awake, Yes oriented to person, Yes oriented to place and Yes oriented to time Eye: COMMON NORMALS: no scleral icterus Resp: COMMON NORMALS: normal respiratory effort and clear to auscultation bilaterally AUSCULTATION: clear to auscultation bilaterally Cardio: COMMON NORMALS: regular rate and regular rhythm RATE: regular rate RHYTHM: regular rhythm GI: COMMON NORMALS: Normal to inspection, nondistended, normoactive bowel sounds present, Soft to palpation and no masses INSPECTION: Yes normal to inspection AUSCULTATION: Yes normoactive bowel sounds PALPATION: Yes Soft to palpation, Yes Tenderness to palpation present (GI) (RUQ/LUQ; no significant epigastric pain), No Guarding due to palpation present (GI), No Rigid due to palpation and Yes Hepatomegaly present : COMMON NORMALS: Yes no CVA tenderness BLADDER/KIDNEY EXAM: Yes no CVA tenderness Back/Pelvis: COMMON NORMALS: no CVA tenderness Neuro: COMMON NORMALS: patient oriented x3 SENSORIUM/ORIENTATION: Yes alert, Yes oriented to person, Yes oriented to place and Yes oriented to time Course Vital Signs: Vital signs: Vital Signs Temperature 98.1 F 01/28/25 11:27 Pulse Rate 72 01/28/25 16:22 Blood Pressure 138/72 01/28/25 16:22 Pulse Oximetry 99 01/28/25 16:22 Oxygen Delivery Me thod Room Air 01/28/25 14:32 MDM - Abdominal Pain Medical Decision Making Patient here for nausea and vomiting over the past 6 months. She has recently underwent endoscopy/colonoscopy by GI at [facility]. Patient clinically appears in no acute distress. Her blood work here is unremarkable. She does have minor elevations to AST/ALT most likely secondary to hepatic steatosis. Gallbladder US apparently was ordered from triage although she had had a history of a cholecystectomy. CT scan abdomen/pelvis showing no acute intra-abdominal process. She was given antiemetics here and encouraged to perform a PO challenge but she declines. She wants to go home. Recommend she follow-up with her primary care and GI team. She was offered promethazine suppositories on today's visit but she declines. Differential Diagnosis Likely abdominal pain, constipation, gastroenteritis, pancreatitis and small bowel obstruction Medical Records I reviewed the patient's medical records. Lab Data I reviewed the patient's lab results. 01/28/25 12:08 01/28/25 12:08 Labs/Radiology: Radiology Impressions Gallbladder Ultrasound 01/28/25 11:33 IMPRESSION: Hepatomegaly with abnormal liver echotexture which most commonly represents steatohepatitis. However, other forms of hepatitis may have the same appearance. Abdomen/Pelvis CT 01/28/25 14:25 IMPRESSION: 1. No acute intra-abdominal process. 2. No bowel obstruction. 3. Hepatic steatosis. Laboratory Results WBC 4.67 10^3/uL (3.29-11.43) 01/28/25 12:08 RBC 4.68 10^6/uL (3.85-5.65) 01/28/25 12:08 Hgb 12.60 g/dL (11.27-16.99) 01/28/25 12:08 Hct 40.0 % (36-47) 01/28/25 12:08 MCV 85.5 fl (85-98) 01/28/25 12:08 MCH 26.9 pg (27-33) L 01/28/25 12:08 MCHC 31.5 g/dL (30-55) 01/28/25 12:08 RDW 14.8 % (12.1-15.1) 01/28/25 12:08 Plt Count 225 10^3/cmm (157-399) 01/28/25 12:08 MPV 12.3 fL (7.4-10.4) H 01/28/25 12:08 Neut % (Auto) 43.9 % 01/28/25 12:08 Lymph % (Auto) 46.9 % 01/28/25 12:08 [place] % (Auto) 6.0 % 01/28/25 12:08 Eos % (Auto) 2.4 % 01/28/25 12:08 Baso % (Auto) 0.6 % 01/28/25 12:08 Neut # (Auto) 2.05 10^3/uL (1.8-7.7) 01/28/25 12:08 Lymph # (Auto) 2.2 10^3/uL (0.8-4.8) 01/28/25 12:08 [place] # (Auto) 0.3 10^3/uL (0.2-0.9) 01/28/25 12:08 Eos # (Auto) 0.1 10^3/uL (0.0-0.8) 01/28/25 12:08 Baso # (Auto) 0.0 10^3/uL (0.0-0.1) 01/28/25 12:08 Nucleated RBC % (auto) 0 % 01/28/25 12:08 Nucleated RBCs # 0.0 /100WBC 01/28/25 12:08 Sodium 142 mmol/L (136-145) 01/28/25 12:08 Potassium 3.6 mmol/L (3.5-5.1) 01/28/25 12:08 Chloride 103 mmol/L (98-107) 01/28/25 12:08 Carbon Dioxide 26 mmol/L (22-29) 01/28/25 12:08 Anion Gap 16.6 (5-19) 01/28/25 12:08 BUN 6 mg/dL (6-20) 01/28/25 12:08 Creatinine 0.7 mg/dL (0.5-0.9) 01/28/25 12:08 GFR Calculation 97.6 mL/min (90-130) 01/28/25 12:08 Glucose 106 mg/dL (65-115) 01/28/25 12:08 Calculated Osmolality 292 mOsm/kg (285-295) 01/28/25 12:08 Calcium 9.7 mg/dL (8.5-10.5) 01/28/25 12:08 Total Bilirubin 0.5 mg/dL (0.15-1.2) 01/28/25 12:08 AST 80 U/L (0-32) H 01/28/25 12:08 ALT 119 U/L (0-33) H 01/28/25 12:08 Alkaline Phosphatase 90 U/L (35-105) 01/28/25 12:08 Total Protein 7.3 g/dL (6.6-8.7) 01/28/25 12:08 Albumin 4.3 g/dL (3.5-5.2) 01/28/25 12:08 Globulin 3.0 g/dL (1.3-4.6) 01/28/25 12:08 Lipase 40 U/L (13-60) 01/28/25 12:08 HCG, Qual Negative (Negative) 01/28/25 12:08 Urine Color Yellow (Yellow) 01/28/25 14:11 Urine Appearance Cloudy (CLEAR) A 01/28/25 14:11 Urine pH 6.5 (5-7) 01/28/25 14:11 Ur Specific [place] 1.022 (1.005-1.030) 01/28/25 14:11 Urine Protein Negative (Negative) 01/28/25 14:11 Urine Glucose (UA) Negative (Normal) 01/28/25 14:11 Urine Ketones Trace (Negative) 01/28/25 14:11 Urine Blood Negative (Negative) 01/28/25 14:11 Urine Nitrate Negative (Negative) 01/28/25 14:11 Urine Bilirubin Negative (Negative) 01/28/25 14:11 Urine Urobilinogen 1.0 mg/dL (Negative) 01/28/25 14:11 Ur Leukocyte Esterase Negative (Negative) 01/28/25 14:11 Urine RBC 0-4 /hpf (0-2) H 01/28/25 14:11 Urine WBC None /hpf (0-5) 01/28/25 14:11 Ur Squamous Epith Cells 15-25 /hpf (0-5) H 01/28/25 14:11 Amorphous Sediment Not Reportable 01/28/25 14:11 Urine Bacteria 2+ /hpf (NONE) H 01/28/25 14:11 All radiology interpretation(s) finalized by discharge Discharge Plan Discharge Patient Disposition: Home Clinical Impression: Nausea with vomiting Qualifiers: Vomiting type: unspecified Qualified Code(s): R11.2 - Nausea with vomiting, unspecified Condition: Stable Prescriptions: No Action methocarbamol 500 mg tablet 500 mg PO QID PRN (Reason: Spasms) levetiracetam 500 mg tablet 500 mg PO BID famotidine 40 mg tablet 40 mg PO DAILY levothyroxine 150 mcg tablet 150 mcg PO QAM sertraline 50 mg tablet 75 mg PO DAILY 30 Days Qty: 45 1RF trazodone 50 mg Tablet 50 mg PO BEDTIME PRN (Reason: Sleep) 30 Days Qty: 30 1RF sulfamethoxazole-trimethoprim 800-160 mg tablet 1 tab PO BID ondansetron 8 mg tablet,disintegrating 8 mg PO Q6H PRN (Reason: Nausea And Vomiting) promethazine 25 mg tablet 25 mg PO Q6H PRN (Reason: Nausea And Vomiting) Discharge Orders: Discharge ED (Routine); Ordered 01/28/25 Ordered By: Merna Mcknight Referrals: WOO GAMINO APRN [Primary Care Provider, Unknown] Patient Instructions: Acute Nausea and Vomiting (DC), Abdominal Pain (ED), Patient Portal & [facility] Instructions Print Language: Beninese Coding Level of Care Code ED [employer] Tender for Suri Schilling
--- NOTE | 2025-01-28 14:25 | CTR_ITS ---
PROCEDURE INFORMATION: Exam: CT Abdomen And Pelvis With Contrast Exam date and time: 01/28/2025 3:38 PM Age: 29 years old Clinical indication: Abdominal pain; Additional info: Upper abdominal pain; Chronic n/v; Cannot eat/drink TECHNIQUE: Imaging protocol: Computed tomography of the abdomen and pelvis with contrast. Radiation optimization: All CT scans at this facility use at least one of these dose optimization techniques: automated exposure control; mA and/or kV adjustment per patient size (includes targeted exams where dose is matched to clinical indication); or iterative reconstruction. Contrast material: [id number]; Contrast volume: 100 ml; Contrast route: INTRAVENOUS (IV); COMPARISON: CT abdomen pelvis wo con [id number] 06/13/2022 2:52 PM RADIATION DOSE METRICS: Total DLP (mGy-cm): 1134.3 FINDINGS: Liver: There is a diffuse decrease in hepatic parenchymal density, consistent with fatty infiltration. Gallbladder and biliary ducts: There has been a cholecystectomy. Pancreas: Normal. No ductal dilation. Spleen: Normal. No splenomegaly. Adrenal glands: Normal. No mass. Kidneys and ureters: 2 mm nonobstructing stone in the interpolar region of the left kidney. There is no hydronephrosis. Stomach and bowel: Unremarkable. No obstruction. No mucosal thickening. Appendix: No evidence of appendicitis. Intraperitoneal space: Unremarkable. No free air. No significant fluid collection. Vasculature: There are numerous benign phleboliths in the pelvis. Lymph nodes: Unremarkable. No enlarged lymph nodes. Urinary bladder: Unremarkable as visualized. Reproductive: There has been a hysterectomy. Bones/joints: There is a curvature of the lumbar spine convex to the right. Soft tissues: Unremarkable. CT/CT abdomen pelvis w con* [id number] IMPRESSION: 1. No acute intra-abdominal process. 2. No bowel obstruction. 3. Hepatic steatosis.
[2025-01-28 14:32] VITALS: BP 134/80; PULSE 83; O2SAT 98
[2025-01-28 14:36] LABS: Glucose Urine UA Negative (Normal); Nitrate Urine Negative (Negative); Specific Gravity, Urine 1.022 (1.005-1.030)
[2025-01-28 14:44] LABS: Add Urine Microscopic? YES; Universal Test for UA Present (0)
--- NOTE | 2025-01-28 14:45 | PC.PHAR ---
Pt states she has not been able to take medications for 6 months. Pt states she no longer takes several of her medications.
[2025-01-28] MEDS: metoclopramide 5 mg/mL SDV 2 mL 10 MG IVP (15:16)
[2025-01-28] MEDS: methylPREDNISolone sod succ 40 mg/mL INJ IVP (15:16)
[2025-01-28] MEDS: diphenhydrAMINE 50 mg/mL SDV 1mL IVP (15:16)
[2025-01-28 15:40] LABS: UA Manual Slide Review YES
[2025-01-28] MEDS: iohexol 350 mg/mL 500 mL Btl (per mL) IV (15:42)
[2025-01-28 16:22] VITALS: BP 138/72; PULSE 72; O2SAT 99
== END 2025-01-28 16:23 | disposition home or self-care (01) ==
PROVIDERS: Emergency Medicine; Emergency Provider Physician Assistant; PCP Nurse Practitioner Family
DX: R11.2 Nausea with vomiting, unspecified (principal); Z87.891 Personal history of nicotine dependence
CPT/HCPCS: 36415; 74177; 76705; 80053; 81001; 83690; 84703; 85025; 96374; 96375; 99285; J1200; J2765; J2919; J7030